=== PATIENT | male | born 1960 | race Caucasian/White ===

== ENCOUNTER 2016-06-04 18:40 | Emergency (ER) | payer BC, MEDICAID ==
[2016-06-04 18:56] VITALS: BP 124/72
--- NOTE | 2016-06-04 19:45 | EDM.PDOC ---
ED HPI GENERAL MEDICAL PROBLEM - General Chief Complaint: General Stated Complaint: CYST ON HIS TAIL BONE?? Time Seen by Provider: 06/04/16 19:20 Source of Information: Reports: Patient History Limitations: Reports: Intoxication - History of Present Illness INITIAL COMMENTS - FREE TEXT/NARRATIVE: 56-year-old male presents to the emergency room with complaints of a three-day history of boil or cyst over the area of his tailbone. He denies any drainage or discharge from the rectum. It is become painful to sit on a hard chair. He has been supplementing the pain with alcohol. Reports he drank a 12 pack of beer today. He is taking 3 hydrocodone today. He takes hydrocodone for pain secondary to history of prostate and bone cancer. He follows with Dr. De Luna. He denies any fever or chills, nausea vomiting, abdominal pain or diarrhea, constipation. 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) (hydrocodone, 12 pack of beer) Rectal Pain Score (Numeric/FACES): 5 - Related Data Allergies Allergy/AdvReac Type Severity Reaction Status Date / Time No Known Allergies Allergy Verified 04/13/16 13:33 Home Meds: Home Meds Albuterol [Ventolin HFA] 1 puff INH Q4H PRN 12/04/15 [History] Bicalutamide [Casodex] 50 mg PO DAILY 03/16/16 [History] Cholecalciferol (Vitamin D3) [Vitamin D3] 2,000 unit PO DAILY 03/16/16 [History] Denosumab [Xgeva] 120 mg SUBCUT ASDIRECTED 03/16/16 [History] Escitalopram [Lexapro] 10 mg PO DAILY 03/16/16 [History] Hydrocodone/Acetaminophen [Hydrocodon-Acetaminophen 5-325] 1 - 2 tab PO Q6H PRN 03/16/16 [History] Ondansetron [Ondansetron ODT] 8 mg SL Q8H PRN 03/16/16 [History] Prochlorperazine Maleate [Compazine] 10 mg PO Q6H PRN 03/16/16 [History] Gabapentin [Neurontin] 300 mg PO BEDTIME 04/14/16 [History] predniSONE [Prednisone] 5 mg PO BID 05/25/16 [History] Past Medical History HEENT History: Reports: Impaired vision Cardiovascular History: Reports: Blood clots/VTE/DVT Respiratory History: Reports: Other (see below) Other Respiratory History: pleurisy Gastrointestinal History: Reports: GERD Genitourinary History: Reports: Prostate disorder Musculoskeletal History: Reports: Arthritis Neurological History: Reports: None Psychiatric History: Reports: Depression Endocrine/Metabolic History: Reports: None Hematologic History: Reports: Blood transfusion(s) Immunologic History: Reports: Immunosuppression Oncologic (Cancer) History: Reports: Bone, Prostate Dermatologic History: Reports: None - Infectious Disease History Infectious Disease History: Reports: None - Past Surgical History Head Surgeries/Procedures: Reports: None HEENT Surgical History: Reports: None Cardiovascular Surgical History: Reports: None Respiratory Surgical History: Reports: None GI Surgical History: Reports: None Male Surgical History: Reports: None Endocrine Surgical History: Reports: None Musculoskeletal Surgical History: Reports: Knee replacement Oncologic Surgical History: Reports: Bone marrow aspiration Social & Family History - Tobacco Use Smoking Status *Q: Current Every Day Smoker Years of Tobacco use: 30 Packs/Tins Daily: 1.5 - Caffeine Use Caffeine Use: Reports: Coffee, Soda - Alcohol Use Days Per Week of Alcohol Use: 7 Number of Drinks Per Day: 8 Total Drinks Per Week: 56 Date of Last Drink: 06/04/16 Time of Last Drink: 17:00 - Recreational Drug Use Recreational Drug Use: No ED ROS GENERAL - Review of Systems Review Of Systems: See Below Constitutional: Reports: no symptoms HEENT: Reports: No symptoms Respiratory: Reports: No Symptoms Cardiovascular: Reports: No symptoms Endocrine: Reports: no symptoms GI/Abdominal: Denies: Black stool, Bloody stool, Constipation, Diarrhea, Nausea , Vomiting : Reports: no symptoms Musculoskeletal: Reports: no symptoms Skin: Reports: no symptoms Neurological: Reports: No Symptoms Psychiatric: Reports: Other (intoxicated) Hematologic/Lymphatic: Reports: no symptoms Immunologic: Reports: no symptoms ED EXAM, GENERAL - Physical Exam Exam: See Below Exam Limited By: Intoxication General Appearance: alert, WD/WN, no apparent distress Head: atraumatic, normocephalic Neck: normal inspection Respiratory/Chest: no respiratory distress, lungs clear Cardiovascular: regular rate, rhythm, no murmur GI/Abdominal: soft, non tender Rectal (Males) Exam: Tenderness (superior to the rectum, mild swelling and tenderness. No erythema, no evidence of infection). No: Black stool, Bloody Stool Psychiatric: depressed mood, other (intoxicated) Skin Exam: Warm, Dry, Intact, Normal color, No rash. No: Erythema Course - Vital Signs Last Recorded V/S: Last Vital Signs Temp 97.7 F 06/04/16 18:51 Pulse 86 06/04/16 18:51 Resp 18 06/04/16 18:51 BP 124/72 06/04/16 18:51 Pulse Ox 98 06/04/16 18:51 - Orders/Labs/Meds Orders: Active Orders 24 hr Category Date Time Status Blood Alcohol [ETHANOL BLOOD MEDICAL] [CHEM] Stat Lab 06/04/16 19:23 Ordered Labs: Laboratory Tests 06/04/16 Range/Units 19:45 WBC 22.6 H (5.0-10.0) 10^3/uL RBC 3.77 L (4.50-6.00) 10^6/uL Hgb 12.1 L (13.0-17.0) g/dL Hct 35.3 L (40.0-52.0) % MCV 93.7 H (82.0-92.0) fL MCH 32.3 H (27.0-31.0) pg MCHC 34.4 (32.0-36.0) g/dL RDW 15.7 H (11.5-14.5) % Plt Count 315 H (150-300) 10^3/uL MPV 6.2 L (7.4-10.4) fL Neut % (Auto) 87.9 H (50.0-70.0) % Lymph % (Auto) 7.3 L (20.0-40.0) % [place] % (Auto) 3.8 (2.0-8.0) % Eos % (Auto) 0.8 L (1.0-3.0) % Baso % (Auto) 0.2 (0.0-1.0) % Neut # 19.9 H (2.5-7.0) 10^3/uL Lymph # 1.6 (1.0-4.0) 10^3/uL [place] # 0.9 H (0.1-0.8) 10^3/uL Eos # 0.2 (0.1-0.3) 10^3/uL Baso # 0.0 (0.0-0.1) 10^3/uL Departure - Departure Time of Disposition: 20:05 Disposition: Against Medical Advice 07 Condition: good Clinical Impression: Pilonidal cyst Referrals: Ashu Hicks MD [Primary Care Provider] - Forms: ED Department Discharge Additional Instructions: 1. Sitz bath 2. Avoid direct contact by sitting. Patient should lay on side for pain relief. 3. Do not drink alcohol and take pain medication together. 4. Followup with Dr. De Luna on Monday for possible I&D. 5. Do not eat or drink anything after midnight Monday night. - My Orders Last 24 Hours: My Active Orders 06/04/16 19:23 Blood Alcohol [ETHANOL BLOOD MEDICAL] [CHEM] Stat - Assessment/Plan Last 24 Hours: My Active Orders 06/04/16 19:23 Blood Alcohol [ETHANOL BLOOD MEDICAL] [CHEM] Stat Assessment:: Pilonidal cyst Plan: 1. Patient left on his own discretion before finishing with his ER visit and lab work. I did not get to see the patient prior to his discharge for further instructions. Patient was intoxicated with a blood alcohol level of greater than 1-1/2 times the legal limit. He did have a friend that pick him up when he left. His instructions for his discharge did include following up with Dr. De Luna on Monday, n.p.o. after midnight Monday night. 2. Patient left AMA.
== END 2016-06-04 20:00 | disposition left against medical advice (07) ==
LOC: KA.ED 18:40
DX: L05.91 Pilonidal cyst without abscess (principal); F17.210 Nicotine dependence, cigarettes, uncomplicated
CPT/HCPCS: 36415; 85025; 99283; G0480

== ENCOUNTER 2016-10-31 09:01 | Day surgery (SDC) | payer MEDICAID ==
[~2016-10-31 09:01] MED LIST: Lactated Ringers 1,000 ML IV SCH; Sodium Chloride 0.9% 5 ML Syringe FLUSH PRN
[2016-10-31] MEDS ORDERED: Midazolam 1 MG/ML 2 ML SDV ONE (09:34)
[2016-10-31] MEDS ORDERED: Propofol 200 MG/20 ML SDV ONE ×2 (09:34→10:04)
[2016-10-31] MEDS ORDERED: Midazolam 1 MG/ML 2 ML SDV IV ONE (10:38)
[2016-10-31] MEDS ORDERED: Propofol 200 MG/20 ML SDV IV ONE (10:38)
--- NOTE | 2016-10-31 11:40 | PCM.OPNOTE ---
- General Post-Op/Procedure Note Date of Surgery/Procedure: 10/31/16 Operative Procedure(s): Colonoscopy with polypectomies x2 at 15 cm and 65 cm. Pre Op Diagnosis: Screening colonoscopy, right upper quadrant pain. Anesthesia Technique: MAC Primary Surgeon: Atif De Luna Complications: None Condition: Good Free Text/Narrative:: INFORMED CONSENT: Patient is here today for elective colonoscopy. All aspects of this procedure have been discussed with the patient. All possible complications also, including possibility of perforation, infection, pain, bleeding and unknown complications. In the event of perforation patient may need to have abdominal exploration, colon resection, colostomy and even was discussed. Anesthetic complications were handled by anesthesia department. The patient understands fully well. Patient did not have any further questions for me at the end of my interview. The patient wishes for me to proceed. PREOPERATIVE DIAGNOSIS/INDICATIONS: [right upper quadrant pain screening colonoscopy.] POSTOPERATIVE DIAGNOSIS: [2 polyps identified at 15 cm and 65 cm from anal margin.] INSTRUMENT USED: Olympus videocolonoscope. ASA CLASSIFICATION: [MAC] ANESTHESIA: Continuous EKG, oximetry and intermittent blood pressure and respiratory monitoring were performed throughout the procedure. IV Versed and Fentanyl were administered. PROCEDURE PERFORMED: Colonoscopy POSITIONS OF PATIENT: Left lateral. RECTUM: a small sessile polyp was identified and removed using the hot biopsy forceps, also small external hemorrhoids are identified.. SIGMOID COLON: a 65 cm and a small polyp was identified and removed using the hot biopsy forceps.. DESCENDING COLON: Normal. SPLENIC FLEXURE: Normal. TRANSVERSE COLON: Normal. HEPATIC FLEXURE: Normal. ASCENDING COLON: Normal. CECUM: Normal. ILEOCECAL VALVE: Normal. BIOPSY: None. TOLERANCE: Excellent. COMPLICATIONS: None. Normal colonoscopy except for 2 polyps one at 15 cm and one at 65 cm from the anal margin. Small external hemorrhoids identified.
[2016-10-31 14:33] VITALS: BP 136/78
== END 2016-10-31 13:45 | disposition home or self-care (01) ==
LOC: KA.SDS 09:01
PROVIDERS: ATTEND Family Medicine
DX: Z12.11 Encounter for screening for malignant neoplasm of colon (principal); D12.4 Benign neoplasm of descending colon; D12.5 Benign neoplasm of sigmoid colon; K64.4 Residual hemorrhoidal skin tags; J42 Unspecified chronic bronchitis; Z79.899 Other long term (current) drug therapy
CPT/HCPCS: 45384; J2250; J2704; J7120

== ENCOUNTER 2016-12-22 18:18 | Emergency (ER) | payer MEDICAID ==
[2016-12-22 18:32] VITALS: BP 150/78
[2016-12-22] MEDS ORDERED: Ketorolac 30 MG/ML SDV IVPUSH ONE (19:13)
--- NOTE | 2016-12-22 19:23 | EDM.PDOC ---
ED HPI GENERAL MEDICAL PROBLEM - General Chief Complaint: General Stated Complaint: PAIN ALL OVER Time Seen by Provider: 12/22/16 18:59 Source of Information: Reports: Patient History Limitations: Reports: No Limitations - History of Present Illness INITIAL COMMENTS - FREE TEXT/NARRATIVE: Patient presents with significant pain in right cheek, most of torso/abdomen/ back and down to both feet that has been increasing the past two days. He takes Hydrocodone 5/325 for chronic pain but this is worse than before. He has cancer of prostate and spine diagnosed a year ago. He had chemo and takes some chemo pills at home now. He takes prednisone also. He smokes and has for the past 20-30 years, but denies known lung or heart problems. 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) Generalized Pain Score (Numeric/FACES): 8 - Related Data Allergies Allergy/AdvReac Type Severity Reaction Status Date / Time No Known Allergies Allergy Verified 12/22/16 18:33 Home Meds: Home Meds Bicalutamide [Casodex] 50 mg PO DAILY 03/16/16 [History] Cholecalciferol (Vitamin D3) [Vitamin D3] 2,000 unit PO DAILY 03/16/16 [History] Escitalopram [Lexapro] 10 mg PO DAILY 03/16/16 [History] Hydrocodone/Acetaminophen [Hydrocodon-Acetaminophen 5-325] 1 - 2 tab PO Q6H PRN 03/16/16 [History] Ondansetron [Ondansetron ODT] 8 mg SL Q8H PRN 03/16/16 [History] Prochlorperazine Maleate [Compazine] 10 mg PO Q6H PRN 03/16/16 [History] predniSONE [Prednisone] 5 mg PO DAILY 05/25/16 [History] Temazepam 30 mg PO BEDTIME PRN 10/05/16 [History] Albuterol [Ventolin HFA] 2 puff INH Q2H PRN 12/22/16 [History] Enzalutamide [Xtandi] 40 mg PO DAILY 12/22/16 [History] Fluticasone/Vilanterol [Breo Ellipta 200-25 Mcg INH] 1 inh INH DAILY 12/22/16 [ History] Past Medical History HEENT History: Reports: Impaired Vision Cardiovascular History: Reports: Blood Clots/VTE/DVT Respiratory History: Reports: Other (See Below) Other Respiratory History: Every day smoker Gastrointestinal History: Reports: GERD Genitourinary History: Reports: Prostate Disorder Musculoskeletal History: Reports: Arthritis Neurological History: Reports: None Psychiatric History: Reports: Depression Endocrine/Metabolic History: Reports: None Hematologic History: Reports: Blood Transfusion(s) Immunologic History: Reports: Immunosuppression Oncologic (Cancer) History: Reports: Bone, Prostate Dermatologic History: Reports: None - Infectious Disease History Infectious Disease History: Reports: None - Past Surgical History Head Surgeries/Procedures: Reports: None GI Surgical History: Reports: None Endocrine Surgical History: Reports: None Musculoskeletal Surgical History: Reports: Knee Replacement Oncologic Surgical History: Reports: Bone Marrow Aspiration Social & Family History - Family History Family Medical History: Noncontributory - Tobacco Use Smoking Status *Q: Current Every Day Smoker Years of Tobacco use: 30 Packs/Tins Daily: 1 Second Hand Smoke Exposure: No - Caffeine Use Caffeine Use: Reports: Coffee, Soda - Alcohol Use Days Per Week of Alcohol Use: 2 Number of Drinks Per Day: 8 Total Drinks Per Week: 16 - Recreational Drug Use Recreational Drug Use: No ED ROS GENERAL - Review of Systems Review Of Systems: See Below Constitutional: Reports: Decreased Appetite (just the past 1-2 days). Denies: Fever, Chills HEENT: Denies: Eye Discharge, Vision Change Respiratory: Denies: Shortness of Breath, Cough Cardiovascular: Denies: Chest Pain, Syncope GI/Abdominal: Reports: Abdominal Pain. Denies: Black Stool, Bloody Stool, Vomiting : Denies: Dysuria, Hematuria, Pain Musculoskeletal: Reports: Back Pain. Denies: Neck Pain, Shoulder Pain, Arm Pain Skin: Denies: Cyanosis, Jaundice, Mottled, Pallor, Diaphoresis Neurological: Denies: Confusion, Dizziness, Headache, Seizure, Syncope Psychiatric: Denies: Agitation, Anxiety, Confusion ED EXAM, GENERAL - Physical Exam Exam: See Below Exam Limited By: No Limitations General Appearance: Alert, WD/WN, No Apparent Distress Eye Exam: Bilateral Eye: EOMI, Normal Inspection, PERRL Ears: Normal External Exam, Hearing Grossly Normal Nose: Normal Inspection, No Blood Throat/Mouth: Normal Inspection, Normal Lips, Normal Voice, No Airway Compromise Head: Atraumatic, Normocephalic Neck: Normal Inspection, Supple, Non-Tender, Full Range of Motion Respiratory/Chest: No Respiratory Distress, Lungs Clear, Normal Breath Sounds, No Accessory Muscle Use Cardiovascular: Normal Peripheral Pulses, Regular Rate, Rhythm, No Edema, No Gallop, No Murmur Peripheral Pulses: 2+: Carotid (L), Carotid (R), Radial (L), Radial (R), Posterior Tibial (L), Posterior Tibial (R) GI/Abdominal: Normal Bowel Sounds, Soft, Other (Tender to palpation of mid- epigastrium and RUQ. Right posterior flank is tender to palpation and there is a very subtle soft-tissue fullness over the right inferolateral (flank) ribcage , although this doesn't consistently coincide with the tender region.) Back Exam: CVA Tenderness (R) (see above), Paraspinal Tenderness (right lumbar) . No: Vertebral Tenderness Extremities: Normal Inspection, Normal Range of Motion, Non-Tender, No Pedal Edema Neurological: Alert, Oriented, Normal Cognition, No Motor/Sensory Deficits Psychiatric: Normal Affect, Normal Mood Skin Exam: Warm, Dry, Intact, Normal Color (uribe versus mild jaundice; patient and his say it is uribe), No Rash Course - Vital Signs Last Recorded V/S: Last Vital Signs Temp 98.2 F 12/22/16 18:29 Pulse 78 12/22/16 18:29 Resp 18 12/22/16 18:29 BP 150/78 H 12/22/16 18:29 Pulse Ox 100 12/22/16 18:29 - Orders/Labs/Meds Orders: Active Orders 24 hr Category Date Time Status CMP [COMPREHENSIVE METABOLIC PN,CMP] [CHEM] Stat Lab 12/22/16 18:50 Received LIPASE [CHEM] Stat Lab 12/22/16 19:10 Ordered Ketorolac [Toradol] Med 12/22/16 19:13 Once 30 mg IVPUSH ONETIME ONE Labs: Laboratory Tests 12/22/16 Range/Units 18:50 WBC 6.6 (5.0-10.0) 10^3/uL RBC 3.20 L (4.50-6.00) 10^6/uL Hgb 9.1 L (13.0-17.0) g/dL Hct 27.8 L (40.0-52.0) % MCV 86.7 (82.0-92.0) fL MCH 28.4 (27.0-31.0) pg MCHC 32.7 (32.0-36.0) g/dL RDW 15.0 H (11.5-14.5) % Plt Count 257 (150-300) 10^3/uL MPV 5.5 L (7.4-10.4) fL Neut % (Auto) 71.1 H (50.0-70.0) % Lymph % (Auto) 17.7 L (20.0-40.0) % [place] % (Auto) 8.6 H (2.0-8.0) % Eos % (Auto) 1.8 (1.0-3.0) % Baso % (Auto) 0.8 (0.0-1.0) % Neut # (Auto) 4.6 (2.5-7.0) 10^3/uL Lymph # (Auto) 1.2 (1.0-4.0) 10^3/uL [place] # (Auto) 0.6 (0.1-0.8) 10^3/uL Eos # (Auto) 0.1 (0.1-0.3) 10^3/uL Baso # (Auto) 0.1 (0.0-0.1) 10^3/uL - Re-Assessments/Exams Free Text/Narrative Re-Assessment/Exam: 12/22/16 19:30 He has taken the hydrocodone 2 tabs q 4-5 hours today without adequate control of the pain. We gave a 30 mg dose of Toradol IV now; patient denies any kidney disease. Previous CMP is normal except for elevated Alk Phos. 12/22/16 20:00 Labs are okay. Pt took two of his hydrocodone while in ER, with our approval, and pain is starting to go down now at about 7 (down from 8). I recommended we monitor for 20-30 minutes to assure adequate response but pt says he needs to get home for some company they have coming over and is okay with the pain not completely down prior to discharge. We discussed that he should call his PCP or the oncologist tomorrow if the pain is back so he won't go into the weekend without some plan for his increasing chronic pain. He understands and agrees. Discharged in stable condition. Departure - Departure Time of Disposition: 20:03 Disposition: Home, Self-Care 01 Condition: Good Clinical Impression: Chronic pain due to neoplasm - Discharge Information Referrals: Ashu Hicks MD [Primary Care Provider] - Additional Instructions: 1. Take your usual pain medications as directed. 2. If pain persists or returns tomorrow, call your PCP or the oncologist to discuss management of the increasing pain level. - My Orders Last 24 Hours: My Active Orders 12/22/16 18:50 CMP [COMPREHENSIVE METABOLIC PN,CMP] [CHEM] Stat 12/22/16 19:10 LIPASE [CHEM] Stat 12/22/16 19:13 Ketorolac [Toradol] 30 mg IVPUSH ONETIME ONE - Assessment/Plan Last 24 Hours: My Active Orders 12/22/16 18:50 CMP [COMPREHENSIVE METABOLIC PN,CMP] [CHEM] Stat 12/22/16 19:10 LIPASE [CHEM] Stat 12/22/16 19:13 Ketorolac [Toradol] 30 mg IVPUSH ONETIME ONE
[2016-12-22 19:37] LABS: CHLORIDE,CL 98 mmol/L (98-115)
[2016-12-22 19:50] LABS: SODIUM,NA 135 mmol/L (136-145)
== END 2016-12-22 20:10 | disposition home or self-care (01) ==
LOC: KA.ED 18:18
DX: G89.3 Neoplasm related pain (acute) (chronic) (principal); C61 Malignant neoplasm of prostate; C41.2 Malignant neoplasm of vertebral column; F17.210 Nicotine dependence, cigarettes, uncomplicated; Z79.899 Other long term (current) drug therapy
CPT/HCPCS: 80053; 83690; 85025; 96374; 99283; J1885

== ENCOUNTER 2016-12-23 14:48 | Observation (INO) | payer MEDICAID ==
[2016-12-23] MEDS ORDERED: Ondansetron 4 MG/2 ML SDV IV PRN ×2 (14:53→15:03)
[2016-12-23] MEDS ORDERED: Sodium Chloride 0.9% 1,000 ML IV SCH (15:00)
[2016-12-23] MEDS ORDERED: Gabapentin 300 MG Cap PO PRN (15:50)
[2016-12-23] MEDS ORDERED: Codeine/guaiFENesin 100mg-10 MG/5 ML Syrup 10 ML Cup PO PRN (15:50)
[2016-12-23] MEDS ORDERED: ALBUTEROL INH PRN (15:50)
[2016-12-23] MEDS ORDERED: Albuterol/Ipratropium 3.0-0.5 MG/3 ML Neb Soln NEB PRN (15:50)
[2016-12-23] MEDS ORDERED: Temazepam 15 MG Cap PO PRN (15:50)
[2016-12-23] MEDS: Ketorolac 30 MG/ML SDV IVPUSH PRN (16:03)
[2016-12-23] MEDS ORDERED: Lactulose Soln 10 GM/15 ML 30 ML UD Cup ONE (16:28)
[2016-12-23] MEDS: Lactulose Soln 10 GM/15 ML 30 ML UD Cup PO SCH ×2 (16:37→20:57)
[2016-12-23] MEDS: Acetaminophen/HYDROcodone 325-5 MG Tab PO PRN ×2 (16:38→20:59)
[2016-12-23] MEDS: predniSONE 5 MG Tab PO SCH (20:57)
[2016-12-24] MEDS: Acetaminophen/HYDROcodone 325-5 MG Tab PO PRN ×3 (01:05→11:14)
[2016-12-24] MEDS: Ketorolac 30 MG/ML SDV IVPUSH PRN ×2 (01:47→08:01)
[2016-12-24 06:06] VITALS: BP 145/89
[2016-12-24 07:52] LABS: CHLORIDE,CL 102 mmol/L (98-115); SODIUM,NA 139 mmol/L (136-145)
[2016-12-24] MEDS: Lactulose Soln 10 GM/15 ML 30 ML UD Cup PO SCH (07:59)
[2016-12-24] MEDS: predniSONE 5 MG Tab PO SCH (08:02)
[2016-12-24] MEDS ORDERED: BICALUTAMIDE 50 MG PO SCH (09:00)
[2016-12-24] MEDS ORDERED: Escitalopram 10 MG Tab PO SCH (09:00)
[2016-12-24] MEDS ORDERED: VILANTEROL INH SCH (09:00)
[2016-12-24] MEDS ORDERED: ENZALUTAMIDE 40 MG PO SCH (09:00)
[2016-12-24] MEDS ORDERED: FLUTICASONE INH SCH (09:00)
--- NOTE | 2016-12-30 08:10 | DISCH ---
DISCHARGE DIAGNOSIS: 1. Generalized abdominal pain, possible rib pain due to his metastatic disease. 2. 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 BRIEF HISTORY: This 56-year-old male patient was admitted to Observation for generalized abdominal discomfort with a questionable ileus. The x-ray of the abdomen was obtained and no obstruction was noted. There was some stool that was present. His UA was negative. He was scheduled for a CT scan, and the CT scan was normal. HOSPITAL SUMMARY: The patient was admitted for the observation. He was given lactulose during hospitalization along with Toradol for pain control. Over the course of the hospitalization, his abdominal pain did improve some and he elected to be discharged. There were no complications. DISCHARGE MEDICATIONS: Included hydrocodone/APAP, sildenafil, gabapentin, albuterol, DuoNeb, enzalutamide, Casodex, Lexapro, prednisone, temazepam, Colace as needed, Zantac, and Toradol. LABS AND DIAGNOSTICS: Labs and diagnostics were obtained during hospitalization. CT scan was negative. He did have elevated liver tests, which were declining at the time of his discharge. PHYSICAL EXAMINATION: HEENT: Negative. CARDIOVASCULAR: Heart rate and rhythm are regular. S1, S2. RESPIRATORY: Lung sounds are clear to auscultation. ABDOMEN: Soft. Bowel sounds are present. There is some mild generalized tenderness. DISPOSITION/DISCHARGE INSTRUCTION: The patient was sent home on home medications as previously stated. He will be following up on the clinic on Monday with Israel Shankar, his primary care provider. Further evaluation and treatment will be determined for this patient based on his symptoms. Remaining diagnosis includes prostate cancer with bony mets. /[id number]/MODL
== END 2016-12-24 12:26 | disposition home or self-care (01) ==
LOC: UNDOADMOB 14:48 → KA.MS 14:48
PROVIDERS: ADMIT Nurse Practitioner Family; ATTEND Family Medicine
DX: R10.84 Generalized abdominal pain (principal); Z79.899 Other long term (current) drug therapy; Z98.890 Other specified postprocedural states; Z96.652 Presence of left artificial knee joint; F17.210 Nicotine dependence, cigarettes, uncomplicated
CPT/HCPCS: 36415; 80053; 85025; 96374; 96376; A9270; G0378; J1885; J7030

== ENCOUNTER 2016-12-25 15:35 | Emergency (ER) | payer MEDICAID ==
[2016-12-25 15:57] VITALS: BP 176/78
[2016-12-25] MEDS ORDERED: HYDROmorphone 1 MG/ML Syringe IVPUSH ONE (16:19)
--- NOTE | 2016-12-25 16:50 | EDM.PDOC ---
ED HPI GENERAL MEDICAL PROBLEM - General Chief Complaint: Abdominal Pain Stated Complaint: ABDOMINAL PAIN Time Seen by Provider: 12/25/16 16:02 Source of Information: Reports: Patient History Limitations: Reports: No Limitations - History of Present Illness INITIAL COMMENTS - FREE TEXT/NARRATIVE: Patient presents with continuing diffuse abdominal pain of 8-9/10. He is taking Ketorolac as started 3 days ago following an ER visit and Hydrocodone 5/ 325 two tabs q46h. This isn't helping adequately. Since the ER visit last , he saw his PCP on Monday and was admitted to the hospital for pain management and to ruleout bowel obstruction/ileus. He passed stool Monday and pain was improved so he was discharged Monday (yesterday) afternoon. He denies N/V, dysuria, chest pain, fever. He has known stage 4 prostate cancer with extensive metastasis to bone and lung. He has tried several chemotherapy agents, some of which he tolerated and some he didn't. I reviewed the oncology note covering the range of treatments he has been on since the cancer was discovered in November of 2015. Pt seems to be in some degree of denial and at some points seems to think his cancer is now clear. He continues to smoke although has been counseled by his oncologist in this. I also reviewed the CT from two days ago showing no sign of gallbladder, pancreas, appendix, intestinal or other intra-abdominal problems. He previously has had US and HIDA scans also ruling out gallbladder pathology. Abdomen Pain Score (Numeric/FACES): 9 - Related Data Allergies Allergy/AdvReac Type Severity Reaction Status Date / Time No Known Allergies Allergy Verified 12/22/16 18:33 Home Meds: Home Meds Bicalutamide [Casodex] 50 mg PO DAILY 03/16/16 [History] Escitalopram [Lexapro] 10 mg PO DAILY 03/16/16 [History] Hydrocodone/Acetaminophen [Hydrocodon-Acetaminophen 5-325] 1 - 2 tab PO Q4H PRN 03/16/16 [History] predniSONE [Prednisone] 5 mg PO BID 05/25/16 [History] Temazepam 30 mg PO BEDTIME PRN 10/05/16 [History] Albuterol [Ventolin HFA] 2 puff INH Q2H PRN 12/22/16 [History] Enzalutamide [Xtandi] 160 mg PO DAILY 12/22/16 [History] Fluticasone/Vilanterol [Breo Ellipta 200-25 Mcg INH] 1 blister INH DAILY [History] Albuterol/Ipratropium [DuoNeb 3.0-0.5 MG/3 ML] 3 ml NEB Q6HRRT PRN 12/23/16 [ History] Gabapentin [Neurontin] 300 mg PO BEDTIME PRN 12/23/16 [History] Sildenafil [Revatio] 20 mg PO DAILY PRN 12/23/16 [History] guaiFENesin/Codeine Phosphate [Cheratussin AC Syrup] 5 - 10 ml PO Q4HR PRN 12/23 [History] Docusate Sodium [Colace] 100 mg PO DAILY #14 capsule 12/24/16 [Rx] Ketorolac [Toradol] 10 mg PO Q6H PRN #7 tablet 12/24/16 [Rx] Ranitidine HCl [Zantac] 150 mg PO BIDAC #14 tablet 12/24/16 [Rx] Docusate Sodium [Colace] 100 mg PO BID 12/25/16 [History] Past Medical History HEENT History: Reports: Impaired Vision Cardiovascular History: Reports: Blood Clots/VTE/DVT Respiratory History: Reports: COPD Other Respiratory History: Every day smoker Gastrointestinal History: Reports: GERD Genitourinary History: Reports: Prostate Disorder Musculoskeletal History: Reports: Arthritis Neurological History: Reports: None Psychiatric History: Reports: Depression Endocrine/Metabolic History: Reports: None Hematologic History: Reports: Blood Transfusion(s) Immunologic History: Reports: Immunosuppression Oncologic (Cancer) History: Reports: Bone, Prostate Dermatologic History: Reports: None - Infectious Disease History Infectious Disease History: Reports: None - Past Surgical History Head Surgeries/Procedures: Reports: None HEENT Surgical History: Reports: None Cardiovascular Surgical History: Reports: None Respiratory Surgical History: Reports: None GI Surgical History: Reports: None Male Surgical History: Reports: None Musculoskeletal Surgical History: Reports: Knee Replacement Oncologic Surgical History: Reports: Bone Marrow Aspiration Social & Family History - Family History Family Medical History: Noncontributory - Tobacco Use Smoking Status *Q: Current Every Day Smoker Years of Tobacco use: 30 Packs/Tins Daily: 1 Used Tobacco, but Quit: No Second Hand Smoke Exposure: No - Caffeine Use Caffeine Use: Reports: Coffee, Soda - Alcohol Use Days Per Week of Alcohol Use: 2 Number of Drinks Per Day: 8 Total Drinks Per Week: 16 - Recreational Drug Use Recreational Drug Use: No ED ROS GENERAL - Review of Systems Review Of Systems: See Below Constitutional: Denies: Fever, Chills Respiratory: Denies: Shortness of Breath Cardiovascular: Denies: Chest Pain GI/Abdominal: Reports: Abdominal Pain. Denies: Diarrhea, Vomiting : Denies: Dysuria Musculoskeletal: Reports: Back Pain. Denies: Neck Pain, Shoulder Pain, Arm Pain Skin: Reports: Jaundice. Denies: Cyanosis, Mottled, Pallor, Diaphoresis Neurological: Denies: Confusion, Dizziness, Headache, Seizure, Syncope Psychiatric: Denies: Agitation, Anxiety, Confusion ED EXAM, GI/ABD - Physical Exam Exam: See Below Exam Limited By: No Limitations General Appearance: Alert, WD/WN, No Apparent Distress Eyes: Bilateral: Normal Appearance, EOMI Ears: Normal External Exam, Hearing Grossly Normal Nose: Normal Inspection, No Blood Throat/Mouth: Normal Lips, Normal Voice, No Airway Compromise Head: Atraumatic, Normocephalic Neck: Normal Inspection, Supple, Non-Tender, Full Range of Motion Respiratory/Chest: No Respiratory Distress, Lungs Clear, Normal Breath Sounds Cardiovascular: Regular Rate, Rhythm, No Murmur GI/Abdominal Exam: Normal Bowel Sounds, Soft, No Organomegaly, Tender ( throughout but more on left side) Back Exam: CVA Tenderness (L), CVA Tenderness (R) Extremities: Normal Inspection, Normal Range of Motion Neurological: Alert, Oriented, Normal Cognition, No Motor/Sensory Deficits Psychiatric: Normal Affect, Normal Mood Skin Exam: Warm, Dry, Intact, No Rash Course - Vital Signs Last Recorded V/S: Last Vital Signs Temp 97.2 F 12/25/16 15:52 Pulse 78 12/25/16 15:52 Resp 20 12/25/16 15:52 BP 176/78 H 12/25/16 15:52 Pulse Ox 100 12/25/16 15:52 - Orders/Labs/Meds Meds: Medications Discontinued Medications Generic Name Dose Route Start Last Admin Trade Name Freq PRN Reason Stop Dose Admin Hydromorphone HCl 1 mg 12/25/16 16:19 12/25/16 16:33 Dilaudid IVPUSH 12/25/16 16:20 1 mg ONETIME ONE Administration - Re-Assessments/Exams Free Text/Narrative Re-Assessment/Exam: 12/25/16 17:06 Pain is now down to 3/10 after the Dilaudid. We discussed findings and the fact that we don't really know what is causing his pain but may be his metastasis. He doesn't really like oxycodone as it causes weird dreams for him but he would like to use it when the pain is worse like today and then switch back to Hydrocodone when able. I advised follow up with his PCP in 1-2 days unless the pain has resolved as he will likely need longer term management of the pain than I am sending with him. Patient discharged in stable condition. Departure - Departure Time of Disposition: 17:12 Disposition: Home, Self-Care 01 Condition: Fair Clinical Impression: Adenocarcinoma of prostate, stage 4, Acute abdominal pain - Discharge Information Referrals: Israel Shankar PA-C [Primary Care Provider] - Additional Instructions: 1. Drink 8 cups of water daily. 2. Take the Oxycodone vs your Hydrocodone as directed. 3. Since the Ketorolac doesn't seem to be helping you can hold that one. You probably only have 1-2 days left of that and if you need those you can use them as needed. 4. Follow up with your PCP in 1-2 days unless pain has resolved. 5. Recheck with your oncologist as needed.
[2016-12-25] MEDS ORDERED: Acetaminophen/oxyCODONE 325-5 MG Tab PO PRN (17:03)
== END 2016-12-25 17:30 | disposition home or self-care (01) ==
LOC: KA.ED 15:35
DX: R10.9 Unspecified abdominal pain (principal); C61 Malignant neoplasm of prostate; C79.51 Secondary malignant neoplasm of bone; C78.00 Secondary malignant neoplasm of unspecified lung; J44.9 Chronic obstructive pulmonary disease, unspecified; K21.9 Gastro-esophageal reflux disease without esophagitis; M19.90 Unspecified osteoarthritis, unspecified site; Z96.659 Presence of unspecified artificial knee joint; F17.210 Nicotine dependence, cigarettes, uncomplicated; Z86.718 Personal history of other venous thrombosis and embolism; Z79.899 Other long term (current) drug therapy; Z92.21 Personal history of antineoplastic chemotherapy
CPT/HCPCS: 96374; 99283; A9270; J1170

== ENCOUNTER 2017-02-02 17:44 | Inpatient (IN) | payer MEDICAID, OTHER, SELFPAY ==
[2017-02-02] MEDS ORDERED: Sodium Chloride 0.9% 1,000 ML IV ONE (18:22)
[2017-02-02] MEDS ORDERED: Sodium Chloride 0.9% 5 ML Syringe FLUSH PRN ×2 (18:22→19:53)
[2017-02-02] MEDS ORDERED: Acetaminophen 500 MG Tab PO ONE (18:24)
--- NOTE | 2017-02-02 18:36 | EDM.PDOC ---
ED HPI GENERAL MEDICAL PROBLEM - General Chief Complaint: General Stated Complaint: FEVER...ACHING ALL OVER Time Seen by Provider: 02/02/17 18:24 Source of Information: Reports: Patient History Limitations: Reports: No Limitations - History of Present Illness INITIAL COMMENTS - FREE TEXT/NARRATIVE: 56 YO WM with PMH of bone cancer who recieved chemotherapy 2 days ago, presents to ER with fever, malaise and body aches since 1pm today. Pt reports he's had some loose stools and a nonproductive cough. Pt reports today fever 101.0 Pt denies any chest pain, shortness of breath or nausea/vomiting. Pt reports some mild abdominal cramping but denies any localized abdominal pain. Onset: Today Onset Date: 02/02/17 Onset Time: 13:00 Location: Reports: Generalized Quality: Reports: Ache Severity: Mild Improves with: Reports: Rest Worsens with: Reports: Movement Associated Symptoms: Reports: Cough, Fever/Chills, Headaches, Loss of Appetite, Malaise, Weakness. Denies: Confusion, Chest Pain, cough w sputum, Diaphoresis, Nausea/Vomiting, Rash, Seizure, Shortness of Breath, Syncope Abdomen Pain Score (Numeric/FACES): 6 - Related Data Allergies Allergy/AdvReac Type Severity Reaction Status Date / Time No Known Allergies Allergy Verified 02/02/17 17:59 Home Meds: Home Meds Escitalopram [Lexapro] 20 mg PO DAILY 03/16/16 [History] Temazepam 30 mg PO BEDTIME PRN 10/05/16 [History] Albuterol [Ventolin HFA] 2 puff INH Q2H PRN 12/22/16 [History] Fluticasone/Vilanterol [Breo Ellipta 200-25 Mcg INH] 1 blister INH DAILY [History] Albuterol/Ipratropium [DuoNeb 3.0-0.5 MG/3 ML] 3 ml NEB Q6HRRT PRN 12/23/16 [ History] Gabapentin [Neurontin] 300 mg PO BEDTIME PRN 12/23/16 [History] Bisacodyl [Dulcolax] 5 - 10 mg PO BID 02/02/17 [History] Calcium Carbonate [Calcium] 500 mg PO BID 02/02/17 [History] Cholecalciferol (Vitamin D3) [Vitamin D3] 200 unit PO DAILY 02/02/17 [History] Dexamethasone 4 mg PO DAILY 02/02/17 [History] Hydrocodone/Acetaminophen [Hydrocodon-Acetaminophn 10-325] 1 tab PO Q4H PRN [History] Morphine [MS Contin] 30 mg PO BID 02/02/17 [History] Past Medical History HEENT History: Reports: Impaired Vision Cardiovascular History: Reports: Blood Clots/VTE/DVT Respiratory History: Reports: COPD Other Respiratory History: Every day smoker Gastrointestinal History: Reports: GERD Genitourinary History: Reports: Prostate Disorder Musculoskeletal History: Reports: Arthritis Neurological History: Reports: None Psychiatric History: Reports: Depression Endocrine/Metabolic History: Reports: None Hematologic History: Reports: Blood Transfusion(s) Immunologic History: Reports: Immunosuppression Oncologic (Cancer) History: Reports: Bone, Prostate Dermatologic History: Reports: None - Infectious Disease History Infectious Disease History: Reports: None - Past Surgical History Head Surgeries/Procedures: Reports: None HEENT Surgical History: Reports: None Cardiovascular Surgical History: Reports: None Respiratory Surgical History: Reports: None GI Surgical History: Reports: None Male Surgical History: Reports: None Neurological Surgical History: Reports: None Musculoskeletal Surgical History: Reports: Knee Replacement Oncologic Surgical History: Reports: Bone Marrow Aspiration Social & Family History - Family History Family Medical History: Noncontributory - Tobacco Use Smoking Status *Q: Current Every Day Smoker Years of Tobacco use: 30 Packs/Tins Daily: 1 Used Tobacco, but Quit: No Second Hand Smoke Exposure: No - Caffeine Use Caffeine Use: Reports: Coffee, Soda - Alcohol Use Days Per Week of Alcohol Use: 2 Number of Drinks Per Day: 8 Total Drinks Per Week: 16 - Recreational Drug Use Recreational Drug Use: No ED ROS GENERAL - Review of Systems Review Of Systems: See Below Constitutional: Reports: Fever, Chills, Malaise, Fatigue HEENT: Reports: No Symptoms Respiratory: Reports: Cough Cardiovascular: Reports: No Symptoms Endocrine: Reports: No Symptoms GI/Abdominal: Reports: Diarrhea : Reports: No Symptoms Musculoskeletal: Reports: No Symptoms Skin: Reports: No Symptoms Neurological: Reports: No Symptoms Psychiatric: Reports: No Symptoms Hematologic/Lymphatic: Reports: No Symptoms Immunologic: Reports: No Symptoms ED EXAM, GENERAL - Physical Exam Exam: See Below Exam Limited By: No Limitations General Appearance: Alert, WD/WN, No Apparent Distress Ears: Normal External Exam, Normal Canal, Hearing Grossly Normal, Normal TMs Nose: Normal Inspection, Normal Mucosa, No Blood Throat/Mouth: Normal Inspection, Normal Lips, Normal Teeth, Normal Gums, Normal Oropharynx, Normal Voice, No Airway Compromise Head: Atraumatic, Normocephalic Neck: Normal Inspection, Supple, Non-Tender, Full Range of Motion Respiratory/Chest: No Respiratory Distress, Lungs Clear, Normal Breath Sounds, No Accessory Muscle Use, Chest Non-Tender Cardiovascular: Normal Peripheral Pulses, Regular Rate, Rhythm, No Edema, No Gallop, No JVD, No Murmur, No Rub GI/Abdominal: Normal Bowel Sounds, Soft, Non-Tender, No Organomegaly, No Distention, No Abnormal Bruit, No Mass Back Exam: Normal Inspection, Full Range of Motion, NT Extremities: Normal Inspection, Normal Range of Motion, Non-Tender, Normal Capillary Refill, No Pedal Edema Neurological: Alert, Oriented, CN II-XII Intact, Normal Cognition, Normal Gait, Normal Reflexes, No Motor/Sensory Deficits Psychiatric: Normal Affect, Normal Mood Skin Exam: Warm, Dry, Intact, Normal Color, No Rash Lymphatic: No Adenopathy Course - Vital Signs Last Recorded V/S: Last Vital Signs Temp 38.2 C H 02/02/17 18:35 Pulse 95 02/02/17 17:55 Resp 20 02/02/17 17:55 BP 109/53 L 02/02/17 17:55 Pulse Ox 95 02/02/17 17:55 - Orders/Labs/Meds Orders: Active Orders 24 hr Category Date Time Status Peripheral IV Care [RC] . DIRECTED Care 02/02/17 18:22 Active Chest 1V Frontal [CR] Stat Exams 02/02/17 18:22 Taken COMPREHENSIVE METABOLIC PN,CMP [CHEM] Stat Lab 02/02/17 18:30 Results CULTURE BLOOD [BC] Stat Lab 02/02/17 18:22 Received CULTURE BLOOD [BC] Stat Lab 02/02/17 18:30 Received INFLUENZA A+B AG SCREEN [RM] Stat Lab 02/02/17 18:24 Ordered LIPASE [CHEM] Stat Lab 02/02/17 18:30 Results UA W/MICROSCOPIC [URIN] Stat Lab 02/02/17 18:22 Ordered Sodium Chloride 0.9% [Syrex Flush] Med 02/02/17 18:22 Active 5 ml FLUSH Q8HR PRN Blood Culture x2 Reflex Set [OM.PC] Stat Oth 02/02/17 18:22 Ordered Peripheral IV Insertion Adult [OM.PC] Routine Oth 02/02/17 18:22 Ordered Medication Orders Sodium Chloride (Syrex Flush) 5 ml FLUSH Q8HR PRN PRN Reason: Keep Vein Open Labs: Laboratory Tests 02/02/17 02/02/17 02/02/17 Range/Units 18:30 18:30 18:30 WBC 13.2 H (5.0-10.0) 10^3/uL RBC 2.83 L (4.50-6.00) 10^6/uL Hgb 8.7 L (13.0-17.0) g/dL Hct 26.0 L (40.0-52.0) % MCV 91.8 (82.0-92.0) fL MCH 30.7 (27.0-31.0) pg MCHC 33.4 (32.0-36.0) g/dL RDW 22.6 H (11.5-14.5) % Plt Count 238 (150-300) 10^3/uL MPV 5.6 L (7.4-10.4) fL Add Manual Diff Yes Neutrophils % (Manual) 65 (50-70) % Band Neutrophils % 18 H (4-12) % Lymphocytes % (Manual) 9 L (20-40) % Monocytes % (Manual) 1 L (2-8) % Eosinophils % (Manual) 0 L (1-3) % Basophils % (Manual) 0 (0-1) % Metamyelocytes % 2 Myelocytes % 5 Anisocytosis 1+ slight Microcytosis 2+ moderate Tear Drop Cells Occasional Schistocytes Occasional Sodium 135 L (136-145) mmol/L Potassium 3.4 (3.3-5.3) mmol/L Chloride 101 (98-115) mmol/L Carbon Dioxide 25.5 (21.0-32.0) mmol/L BUN 10 (6-25) mg/dL Creatinine 0.65 (0.51-1.17) mg/dL Est Cr Clr Drug Dosing 136.76 mL/min Estimated GFR (MDRD) > 60 mL/min Glucose 86 (70-110) mg/dL Lactic Acid 1.4 (0.4-2.0) mmol/L Calcium 6.1 L (8.7-10.3) mg/dL Total Bilirubin 0.6 (0.2-1.0) mg/dL AST 18 (15-37) U/L ALT 22 (12-78) U/L Total Protein 6.6 (6.4-8.2) g/dL Albumin 3.14 (3.00-4.80) g/dL Lipase 61 L (73-393) U/L Meds: Medications Generic Name Dose Route Start Last Admin Trade Name Freq PRN Reason Stop Dose Admin Sodium Chloride 5 ml 02/02/17 18:22 Syrex Flush FLUSH Q8HR PRN Keep Vein Open Discontinued Medications Generic Name Dose Route Start Last Admin Trade Name Freq PRN Reason Stop Dose Admin Acetaminophen 1,000 mg 02/02/17 18:24 02/02/17 18:35 Tylenol Extra Strength PO 02/02/17 18:25 1,000 mg ONETIME ONE Administration Sodium Chloride 1,000 mls @ 999 mls/hr 02/02/17 18:22 02/02/17 18:36 Normal Saline IV 02/02/17 19:22 999 mls/hr .BOLUS ONE Administration - Radiology Interpretation Free Text/Narrative:: CXR- NAD Departure - Departure Time of Disposition: 19:51 Disposition: Admitted As Inpatient 66 Condition: Fair Clinical Impression: Hyponatremia, Bandemia without diagnosis of specific infection Fever Qualifiers: Encounter type: initial encounter - Discharge Information Referrals: Ashu Hicks MD [Primary Care Provider] - Forms: ED Department Discharge - My Orders Last 24 Hours: My Active Orders 02/02/17 18:22 Peripheral IV Care [RC] . DIRECTED Chest 1V Frontal [CR] Stat CULTURE BLOOD [BC] Stat UA W/MICROSCOPIC [URIN] Stat Sodium Chloride 0.9% [Syrex Flush] 5 ml FLUSH Q8HR PRN Blood Culture x2 Reflex Set [OM.PC] Stat Peripheral IV Insertion Adult [OM.PC] Routine 02/02/17 18:24 INFLUENZA A+B AG SCREEN [RM] Stat 02/02/17 18:30 COMPREHENSIVE METABOLIC PN,CMP [CHEM] Stat CULTURE BLOOD [BC] Stat LIPASE [CHEM] Stat - Assessment/Plan Last 24 Hours: My Active Orders 02/02/17 18:22 Peripheral IV Care [RC] . DIRECTED Chest 1V Frontal [CR] Stat CULTURE BLOOD [BC] Stat UA W/MICROSCOPIC [URIN] Stat Sodium Chloride 0.9% [Syrex Flush] 5 ml FLUSH Q8HR PRN Blood Culture x2 Reflex Set [OM.PC] Stat Peripheral IV Insertion Adult [OM.PC] Routine 02/02/17 18:24 INFLUENZA A+B AG SCREEN [RM] Stat 02/02/17 18:30 COMPREHENSIVE METABOLIC PN,CMP [CHEM] Stat CULTURE BLOOD [BC] Stat LIPASE [CHEM] Stat Assessment:: 1. fever 2. bandemia 3. dehydration 4. r/o bacteremia Plan: 1. admit to medicine- Gregor Castelan 2. IVF 125cc/hr 3. vanco/zosyn 4. repeat labs in am
[2017-02-02 18:58] LABS: CHLORIDE,CL 101 mmol/L (98-115)
[2017-02-02] MEDS ORDERED: Ibuprofen 600 MG Tab PO PRN (19:53)
[2017-02-02] MEDS ORDERED: Albuterol 0.083% 2.5 MG/3 ML Neb Soln NEB PRN (19:53)
[2017-02-02] MEDS ORDERED: Acetaminophen 325 MG Tab PO PRN (19:53)
[2017-02-02] MEDS ORDERED: Ondansetron 4 MG/2 ML SDV IV PRN (19:53)
[2017-02-02 19:59] LABS: SODIUM,NA 135 mmol/L (136-145)
[2017-02-02] MEDS: Sodium Chloride 0.9% 1,000 ML IV SCH (20:20)
[2017-02-02] MEDS: Piperacillin/Tazobactam/Dext 3.375 GM in Premix Bag 1 BAG IV SCH (20:24)
[2017-02-02] MEDS: Nicotine 14 MG/24 Hr Patch TRDERM SCH (20:25)
[2017-02-02] MEDS ORDERED: TEMAZEPAM 30 MG PO PRN (21:15)
[2017-02-02] MEDS: Temazepam 15 MG Cap PO SCH (22:01)
[2017-02-02] MEDS: Morphine 30 MG Tab.ER PO SCH (22:01)
[2017-02-02] MEDS: Gabapentin 300 MG Cap PO SCH (22:01)
[2017-02-02] MEDS ORDERED: Rivaroxaban 10 MG Tab ONE (22:27)
[2017-02-02] MEDS: Rivaroxaban 10 MG Tab PO SCH (22:30)
[2017-02-03] MEDS: Piperacillin/Tazobactam/Dext 3.375 GM in Premix Bag 1 BAG IV SCH ×4 (02:01→19:34)
[2017-02-03] MEDS: Nicotine 14 MG/24 Hr Patch TRDERM SCH (08:19)
[2017-02-03] MEDS: predniSONE 5 MG Tab PO SCH (08:19)
[2017-02-03] MEDS: Furosemide 40 MG Tab PO SCH (08:19)
[2017-02-03] MEDS: Escitalopram 10 MG Tab PO SCH (08:19)
[2017-02-03] MEDS: Potassium Chloride 20 MEQ Tab.ER PO SCH (08:19)
[2017-02-03] MEDS: Morphine 30 MG Tab.ER PO SCH ×2 (08:19→21:01)
[2017-02-03] MEDS: Dexamethasone 4 MG Tab PO SCH (08:19)
[2017-02-03] MEDS: Rivaroxaban 10 MG Tab PO SCH ×2 (08:19→21:02)
[2017-02-03 08:33] LABS: CHLORIDE,CL 107 mmol/L (98-115); SODIUM,NA 140 mmol/L (136-145)
--- NOTE | 2017-02-03 08:55 | PCM.HP ---
H&P History of Present Illness - General Date of Service: 02/03/17 Source of Information: Patient, Old Records, Provider History Limitations: Reports: No Limitations - History of Present Illness Initial Comments - Free Text/Narative: 56-year-old gentleman was admitted last night for fever and generalized malaise. Patient received chemotherapy (Cabazitaxel) 2 days ago came to the ED with body aches that started that day. Patient has Stage IV prostate cancer with skeletal and bone marrow metastasis, Dx 2015. He also had significant loose stools with abdominal cramping and a nonproductive cough. His temperature maximum was about 101. Abdomen Pain Score (Numeric/FACES): 6 Bilateral Leg Pain Score (Numeric/FACES): 3 - Related Data Allergies/Adverse Reactions: Allergies Allergy/AdvReac Type Severity Reaction Status Date / Time No Known Allergies Allergy Verified 02/03/17 02:55 Home Medications: Home Meds Escitalopram [Lexapro] 20 mg PO DAILY 03/16/16 [History] Gabapentin [Neurontin] 600 mg PO BEDTIME 12/23/16 [History] Calcium Carbonate [Calcium] 500 mg PO BID 02/02/17 [History] Cholecalciferol (Vitamin D3) [Vitamin D3] 2,000 unit PO DAILY 02/02/17 [History] Dexamethasone 4 mg PO DAILY 02/02/17 [History] Furosemide [Lasix] 40 mg PO DAILY 02/02/17 [History] Hydrocodone/Acetaminophen [Hydrocodon-Acetaminophn 10-325] 1 tab PO Q4H PRN [History] Morphine [MS Contin] 30 mg PO BID 02/02/17 [History] Pericolace 1 tab PO BID 02/02/17 [History] Potassium Chloride [Klor-Con M20] 1 tab PO DAILY 02/02/17 [History] Rivaroxaban [Xarelto] 15 mg PO BID 02/02/17 [History] Temazepam [Temazepam] 30 mg PO BEDTIME 02/02/17 [History] predniSONE [Prednisone] 10 mg PO DAILY 02/02/17 [History] Advair 500mcg/50mcg 1 puff PO BID 02/03/17 [History] Past Medical History HEENT History: Reports: Impaired Vision Cardiovascular History: Reports: Blood Clots/VTE/DVT Respiratory History: Reports: COPD Other Respiratory History: Every day smoker Gastrointestinal History: Reports: GERD Genitourinary History: Reports: Prostate Disorder Musculoskeletal History: Reports: Arthritis Other Musculoskeletal History: unsteady gait - uses motorized wheelchair at home Neurological History: Reports: None Other Neuro History: stagegering gait - requires walker or uses motorized wheelchair at home Psychiatric History: Reports: Depression Endocrine/Metabolic History: Reports: None Hematologic History: Reports: Blood Transfusion(s) Immunologic History: Reports: Immunosuppression Oncologic (Cancer) History: Reports: Bone, Prostate Dermatologic History: Reports: None - Infectious Disease History Infectious Disease History: Reports: Chicken Pox - Past Surgical History Head Surgeries/Procedures: Reports: None HEENT Surgical History: Reports: None Cardiovascular Surgical History: Reports: None Other Cardiovascular Surgeries/Procedures: port-a-cath L chest Respiratory Surgical History: Reports: None GI Surgical History: Reports: None, Colonoscopy Male Surgical History: Reports: None Neurological Surgical History: Reports: None Musculoskeletal Surgical History: Reports: Knee Replacement, Other (See Below) Other Musculoskeletal Surgeries/Procedures:: to L knee Oncologic Surgical History: Reports: Bone Marrow Aspiration, Other (See Below) Other Oncologic Surgeries/Procedures: radiation to tumor onspine - done with series in Dec 2016 Social & Family History - Family History HEENT: Reports: None Cardiac: Reports: Other (See Below) (Father cancer and stroke) Respiratory: Reports: Interstitial Lung Disease (Father lung cancer, brother with pancreatic cancer) GI: Reports: None : Reports: None OBGYN: Reports: None Musculoskeletal: Reports: None Neurological: Reports: None Psychiatric: Reports: None Endocrine/Metabolic: Reports: None Hematologic: Reports: None Immunologic: Reports: None Dermatologic: Reports: None Oncologic: Reports: Lung, Pancreatic (Brother with unknown cancer, another brother pancreatic cancer, and skin cancer,) - Tobacco Use Smoking Status *Q: Current Every Day Smoker Years of Tobacco use: 30 Packs/Tins Daily: 1 Used Tobacco, but Quit: No Second Hand Smoke Exposure: No - Caffeine Use Caffeine Use: Reports: Coffee, Soda - Alcohol Use Days Per Week of Alcohol Use: 2 Number of Drinks Per Day: 8 Total Drinks Per Week: 16 - Recreational Drug Use Recreational Drug Use: No H&P Review of Systems - Review of Systems: Review Of Systems: See Below General: Reports: Chills, Malaise, Weakness, Other (all). Denies: Fever HEENT: Reports: No Symptoms Pulmonary: Reports: No Symptoms Cardiovascular: Reports: Edema (left leg blood clot. ). Denies: Chest Pain, Palpitations Gastrointestinal: Reports: Abdominal Pain (mild ), Black Stool, Diarrhea ( significant loose stools yesterday.; ), Distension. Denies: Bloody Stool, Constipation, Vomiting Genitourinary: Reports: No Symptoms Musculoskeletal: Reports: Leg Pain Psychiatric: Reports: No Symptoms Neurological: Reports: Paresthesia (toes ) Hematologic/Lymphatic: Reports: Anemia Immunologic: Reports: No Symptoms Exam - Exam Exam: See Below - Vital Signs Vital Signs: Last Vital Signs Temp 99.1 F 02/03/17 07:00 Pulse 96 02/03/17 07:00 Resp 20 02/03/17 07:00 BP 109/59 L 02/03/17 07:00 Pulse Ox 98 02/03/17 07:00 Weight: 206 lb 12.8 oz - Exam Quality Assessment: DVT Prophylaxis. No: Supplemental Oxygen, Skin Breakdown HEENT: Conjunctiva Clear, EACs Clear, Hearing Intact, Nares Patent, Normal Nasal Septum, Other (Bilateral tonsillar exudate--culture), PERRLA. No: Mucosa Moist & [place] (Dry mucous membranes) Neck: Supple, Trachea Midline, 2 Lungs: Clear to Auscultation, Normal Respiratory Effort Cardiovascular: Regular Rate, Regular Rhythm GI/Abdominal Exam: Soft. No: Distended (Male) Exam: No Hernia, Normal Inspection, Normal Prostate, Circumcised Rectal (Males) Exam: Deferred Back Exam: No: CVA Tenderness (L), CVA Tenderness (R) Extremities: Pedal Edema Skin: Warm, Dry, Intact Neurological: Cranial Nerves Intact, Reflexes Equal Bilateral Neuro Extensive - Mental Status: Alert, Oriented x3, Normal Mood/Affect, Normal Cognition Neuro Extensive - Motor, Sensory, Reflexes: CN II-XII Intact, Normal Gait, Normal Reflexes Psychiatric: Alert, Normal Affect, Normal Mood - Patient Data Lab Results Last 24 hrs: Laboratory Results - last 24 hr 02/03/17 Range/Units 07:40 WBC 10.4 H (5.0-10.0) 10^3/uL RBC 2.65 L (4.50-6.00) 10^6/uL Hgb 7.9 L (13.0-17.0) g/dL Hct 24.4 L (40.0-52.0) % MCV 92.2 H (82.0-92.0) fL MCH 29.9 (27.0-31.0) pg MCHC 32.4 (32.0-36.0) g/dL RDW 21.9 H (11.5-14.5) % Plt Count 215 (150-300) 10^3/uL MPV 5.8 L (7.4-10.4) fL Neut % (Auto) 88.4 H (50.0-70.0) % Lymph % (Auto) 8.5 L (20.0-40.0) % [place] % (Auto) 1.6 L (2.0-8.0) % Eos % (Auto) 1.1 (1.0-3.0) % Baso % (Auto) 0.4 (0.0-1.0) % Neut # (Auto) 9.2 H (2.5-7.0) 10^3/uL Lymph # (Auto) 0.9 L (1.0-4.0) 10^3/uL [place] # (Auto) 0.2 (0.1-0.8) 10^3/uL Eos # (Auto) 0.1 (0.1-0.3) 10^3/uL Baso # (Auto) 0.0 (0.0-0.1) 10^3/uL Result Diagrams: 02/03/17 07:40 02/03/17 07:40 *Q Meaningful Use (ADM) - VTE *Q VTE Criteria *Q: - Stroke *Q Stroke Criteria *Q: - AMI *Q AMI Criteria *Q: Problem List Initiated/Reviewed/Updated: Yes Orders Last 24hrs: Active Orders 24 hr Category Date Time Status CULTURE WOUND [RM] Routine Lab 02/02/17 23:00 Ordered VANCOMYCIN TROUGH [CHEM] Routine Lab 02/03/17 21:30 Ordered Acetaminophen/HYDROcodone [[place] 325-10 MG] Med 02/02/17 21:15 Active 1 tab PO Q4H PRN Dexamethasone Med 02/03/17 09:00 Active 4 mg PO DAILY Escitalopram [Lexapro] Med 02/03/17 09:00 Active 20 mg PO DAILY Fluticasone/Vilanterol [Breo Ellipta 200-25 MCG Med 02/03/17 09:00 Active Inhalation Kit] 1 each IH DAILY Furosemide [Lasix] Med 02/03/17 09:00 Active 40 mg PO DAILY Gabapentin [Neurontin] Med 02/02/17 21:00 Active 600 mg PO BEDTIME Morphine [MS Contin] Med 02/02/17 21:00 Active 30 mg PO BID Potassium Chloride [Klor-Con M20] Med 02/03/17 09:00 Active 20 meq PO DAILY Rivaroxaban [Xarelto] Med 02/03/17 09:00 Active 15 mg PO BID Temazepam [Restoril] Med 02/02/17 21:45 Active 30 mg PO BEDTIME Vancomycin 1.25 gm Med 02/02/17 22:00 Active Sodium Chloride 0.9% [Normal Saline] 250 ml IV Q8H Vancomycin Pharmacy to Dose [Pharmacy to Dose - Med 02/02/17 21:00 Pending Vancomycin] 1 dose .XX ASDIRECTED predniSONE Med 02/03/17 09:00 Active 10 mg PO DAILY Medication Orders Acetaminophen (Tylenol) 650 mg PO Q4H PRN PRN Reason: Pain (Mild 1-3)/fever Last Admin: 02/03/17 02:58 Dose: 650 mg Hydrocodone Bitart/Acetaminophen ([place] 325-10 Mg) 1 tab PO Q4H PRN PRN Reason: Pain Albuterol (Proventil Neb Soln) 2.5 mg NEB Q2H PRN PRN Reason: Shortness Of Breath/wheezing Dexamethasone (Dexamethasone) 4 mg PO DAILY [facility] Last Admin: 02/03/17 08:19 Dose: 4 mg Escitalopram Oxalate (Lexapro) 20 mg PO DAILY [facility] Last Admin: 02/03/17 08:19 Dose: 20 mg Furosemide (Lasix) 40 mg PO DAILY [facility] Last Admin: 02/03/17 08:19 Dose: 40 mg Gabapentin (Neurontin) 600 mg PO BEDTIME [facility] Last Admin: 02/02/17 22:01 Dose: 600 mg Piperacillin/Tazobactam/ (Dextrose 3.375 gm/ Premix) 50 mls @ 100 mls/hr IV Q6H [facility] Last Admin: 02/03/17 08:18 Dose: 100 mls/hr Infusion: 02/03/17 02:31 Dose: 100 mls/hr Admin: 02/03/17 02:01 Dose: 100 mls/hr Infusion: 02/02/17 20:54 Dose: 100 mls/hr Admin: 02/02/17 20:24 Dose: 100 mls/hr Sodium Chloride (Normal Saline) 1,000 mls @ 125 mls/hr IV ASDIRECTED [facility] Last Admin: 02/02/17 20:20 Dose: 125 mls/hr Vancomycin HCl 1.25 gm/ Sodium (Chloride) 250 mls @ 166.667 mls/hr IV Q8H [facility] Last Admin: 02/03/17 05:39 Dose: 166.667 mls/hr Admin: 02/02/17 22:18 Dose: 166.667 mls/hr Ibuprofen (Motrin) 600 mg PO Q6H PRN PRN Reason: Pain (mild 1-3) Morphine Sulfate (Ms Contin) 30 mg PO BID [facility] Last Admin: 02/03/17 08:19 Dose: 30 mg Admin: 02/02/17 22:01 Dose: 30 mg Nicotine (Habitrol) 14 mg TRDERM DAILY [facility] Last Admin: 02/03/17 08:19 Dose: Not Given Admin: 02/02/17 20:25 Dose: Not Given Ondansetron HCl (Zofran) 4 mg IV Q6H PRN PRN Reason: Nausea/Vomiting Potassium Chloride (Klor-Con M20) 20 meq PO DAILY [facility] Last Admin: 02/03/17 08:19 Dose: 20 meq Prednisone (Prednisone) 10 mg PO DAILY [facility] Last Admin: 02/03/17 08:19 Dose: 10 mg Rivaroxaban (Xarelto) 15 mg PO BID [facility] Last Admin: 02/03/17 08:19 Dose: 15 mg Admin: 02/02/17 22:30 Dose: 15 mg Sodium Chloride (Syrex Flush) 5 ml FLUSH Q8HR PRN PRN Reason: Keep Vein Open Temazepam (Restoril) 30 mg PO BEDTIME [facility] Last Admin: 02/02/17 22:01 Dose: 30 mg Vancomycin HCl (Pharmacy To Dose - Vancomycin) 1 dose .XX ASDIRECTED [facility] Assessment/Plan Comment:: 56-year-old gentleman was admitted last night for fever and generalized malaise. Patient received chemotherapy (Cabazitaxel) 2 days ago came to the ED with body aches that started that day. Patient has Stage IV prostate cancer with skeletal and bone marrow metastasis, Dx 2015. He also had significant loose stools with abdominal cramping and a nonproductive cough. His temperature maximum was about 101. Pertinent ED workup WBC 13,000 with elevation bandemia Fever Lactic acid normal Acutely elevated alkaline phosphatase Urine unremarkable chest x-ray unremarkable for infiltrate however progression of metastatic bone disease Primary impression Fever unknown origin, qSOFA 0/3; lactic acid normal; blood cultures, vancomycin and Zosyn ongoing, throat culture today, continue surveillance of urine and blood cultures, abdominal US. Surveillance of port culture, Continue IV fluids Chemotherapy-induced neutropenia, receiving Granix, white count improved Immunocompromised host, culture surveillance, IV antibiotics and fluid resuscitation Anemia, anysocytosis; progressive Hyperphosphatemia, likely related to bone metastasis however acutely elevated, Tbili normal, AST ALT normal along with ratio, R/O Choledocholithiasis; RUQ ultrasound R/O Choledocholithiasis, see above Depression, on Lexapro, stable, good family support Tobacco dependency, seems stable, refusing replacement therapy History of DVT, CHRISTINA stockings, factor Xa inhibitor Pain management, recently increased MS Contin to 30 mg bid. Increased Hydrocodone to 10 mg q 4 h PRN. ONCOLOGY PLAN Continue Zoladex 10.8 mg subcut q 3 months, here at [facility]. Changed from Xgeva to Zometa. Continue Prednisone 5 mg PO bid. Continue Enzalutamide 160 mg PO daily till he starts Cabazitaxel. Overall plan, continue IV antibiotics and fluid resuscitation, ultrasound today to rule out Choledocholithiasis,
[2017-02-03] MEDS ORDERED: Fluticasone/Vilanterol 200 MCG/25 MCG Inhalation Powder Kit of 14 IH SCH ×2 (09:00)
[2017-02-03] MEDS: Sodium Chloride 0.9% 1,000 ML IV SCH ×2 (09:17→20:52)
[2017-02-03] MEDS: Acetaminophen/HYDROcodone 325-10 MG Tab PO PRN ×3 (09:24→19:11)
[2017-02-03] MEDS: Fluticasone/Salmeterol 500-50 MCG Inhalation Powder 14/Diskus INH SCH ×2 (11:51→20:54)
[2017-02-03] MEDS: Gabapentin 300 MG Cap PO SCH (20:55)
[2017-02-03] MEDS: Temazepam 15 MG Cap PO SCH (21:01)
[2017-02-04] MEDS: Piperacillin/Tazobactam/Dext 3.375 GM in Premix Bag 1 BAG IV SCH ×4 (02:08→20:14)
[2017-02-04] MEDS: Acetaminophen/HYDROcodone 325-10 MG Tab PO PRN ×3 (06:12→17:35)
[2017-02-04 08:01] LABS: CHLORIDE,CL 107 mmol/L (98-115); SODIUM,NA 140 mmol/L (136-145)
[2017-02-04] MEDS: Fluticasone/Salmeterol 500-50 MCG Inhalation Powder 14/Diskus INH SCH ×2 (08:43→20:24)
[2017-02-04] MEDS: Rivaroxaban 10 MG Tab PO SCH ×2 (08:44→20:25)
[2017-02-04] MEDS: predniSONE 5 MG Tab PO SCH (08:45)
[2017-02-04] MEDS: Potassium Chloride 20 MEQ Tab.ER PO SCH (08:46)
[2017-02-04] MEDS: Furosemide 40 MG Tab PO SCH (08:46)
[2017-02-04] MEDS: Dexamethasone 4 MG Tab PO SCH (08:47)
[2017-02-04] MEDS: Morphine 30 MG Tab.ER PO SCH ×2 (08:47→20:25)
[2017-02-04] MEDS: Escitalopram 10 MG Tab PO SCH (08:47)
[2017-02-04] MEDS: Nicotine 14 MG/24 Hr Patch TRDERM SCH (08:48)
[2017-02-04] MEDS: Sodium Chloride 0.9% 1,000 ML IV SCH (09:33)
--- NOTE | 2017-02-04 11:35 | PCM.PN ---
- General Info Date of Service: 02/11/17 Functional Status: Denies: Pain Controlled (significant improvement from admission), Tolerating Diet - Review of Systems General: Reports: Weakness (improving since yesterday). Denies: Fever HEENT: Denies: No Symptoms Pulmonary: Denies: No Symptoms Cardiovascular: Denies: Chest Pain, Palpitations Gastrointestinal: Denies: Abdominal Pain (mild), Nausea, Vomiting Genitourinary: Denies: No Symptoms Musculoskeletal: Reports: Other (initially experienced generalized pain/ achiness. improving ) Skin: Denies: No Symptoms - Patient Data Vitals - Most Recent: Last Vital Signs Temp 98.3 F 02/04/17 06:31 Pulse 83 02/04/17 06:31 Resp 18 02/04/17 06:31 BP 103/58 L 02/04/17 06:31 Pulse Ox 98 02/04/17 06:31 Weight - Most Recent: 206 lb 12.8 oz I&O - Last 24 Hours: Intake & Output 02/03/17 02/04/17 02/04/17 22:59 06:59 14:59 Intake Total 1530 1375 Balance 1530 1375 Lab Results Last 24 Hours: Laboratory Results - last 24 hr 02/03/17 02/04/17 02/04/17 Range/Units 21:35 07:15 07:15 WBC 10.6 H (5.0-10.0) 10^3/uL RBC 2.58 L (4.50-6.00) 10^6/uL Hgb 7.7 L (13.0-17.0) g/dL Hct 24.1 L (40.0-52.0) % MCV 93.3 H (82.0-92.0) fL MCH 29.7 (27.0-31.0) pg MCHC 31.8 L (32.0-36.0) g/dL RDW 22.4 H (11.5-14.5) % Plt Count 196 (150-300) 10^3/uL MPV 6.4 L (7.4-10.4) fL Neut % (Auto) 83.8 H (50.0-70.0) % Lymph % (Auto) 11.3 L (20.0-40.0) % [place] % (Auto) 3.1 (2.0-8.0) % Eos % (Auto) 1.3 (1.0-3.0) % Baso % (Auto) 0.5 (0.0-1.0) % Neut # (Auto) 8.9 H (2.5-7.0) 10^3/uL Lymph # (Auto) 1.2 (1.0-4.0) 10^3/uL [place] # (Auto) 0.3 (0.1-0.8) 10^3/uL Eos # (Auto) 0.1 (0.1-0.3) 10^3/uL Baso # (Auto) 0.1 (0.0-0.1) 10^3/uL Sodium 140 (136-145) mmol/L Potassium 4.0 (3.3-5.3) mmol/L Chloride 107 (98-115) mmol/L Carbon Dioxide 23.8 (21.0-32.0) mmol/L BUN 9 (6-25) mg/dL Creatinine 0.62 (0.51-1.17) mg/dL Est Cr Clr Drug Dosing 143.38 mL/min Estimated GFR (MDRD) > 60 mL/min Glucose 107 (70-110) mg/dL Calcium 6.7 L (8.7-10.3) mg/dL Total Bilirubin 0.3 (0.2-1.0) mg/dL AST 18 (15-37) U/L ALT 21 (12-78) U/L Alkaline Phosphatase 899 H (46-116) IU/L Total Protein 6.0 L (6.4-8.2) g/dL Albumin 2.52 L (3.00-4.80) g/dL Vancomycin Trough 12.3 (10-20) ug/mL Dann Results Last 24 Hours: Microbiology 02/02/17 23:00 Wound Culture - Preliminary Chest - Left NO GROWTH AFTER 1 DAY 02/03/17 09:20 Throat Culture - Preliminary Throat YEAST Med Orders - Current: Current Medications Acetaminophen (Tylenol) 650 mg PO Q4H PRN PRN Reason: Pain (Mild 1-3)/fever Last Admin: 02/03/17 02:58 Dose: 650 mg Hydrocodone Bitart/Acetaminophen ([place] 325-10 Mg) 1 tab PO Q4H PRN PRN Reason: Pain Last Admin: 02/04/17 06:12 Dose: 1 tab Albuterol (Proventil Neb Soln) 2.5 mg NEB Q2H PRN PRN Reason: Shortness Of Breath/wheezing Dexamethasone (Dexamethasone) 4 mg PO DAILY [facility] Last Admin: 02/04/17 08:47 Dose: 4 mg Escitalopram Oxalate (Lexapro) 20 mg PO DAILY [facility] Last Admin: 02/04/17 08:47 Dose: 20 mg Furosemide (Lasix) 40 mg PO DAILY [facility] Last Admin: 02/04/17 08:46 Dose: 40 mg Gabapentin (Neurontin) 600 mg PO BEDTIME [facility] Last Admin: 02/03/17 20:55 Dose: 600 mg Piperacillin/Tazobactam/ (Dextrose 3.375 gm/ Premix) 50 mls @ 100 mls/hr IV Q6H [facility] Last Admin: 02/04/17 08:48 Dose: 100 mls/hr Sodium Chloride (Normal Saline) 1,000 mls @ 125 mls/hr IV ASDIRECTED [facility] Last Admin: 02/04/17 09:33 Dose: 125 mls/hr Vancomycin HCl 1.5 gm/ Sodium (Chloride) 250 mls @ 166.667 mls/hr IV Q8H [facility] Last Admin: 02/04/17 06:11 Dose: 166.667 mls/hr Ibuprofen (Motrin) 600 mg PO Q6H PRN PRN Reason: Pain (mild 1-3) Morphine Sulfate (Ms Contin) 30 mg PO BID [facility] Last Admin: 02/04/17 08:47 Dose: 30 mg Nicotine (Habitrol) 14 mg TRDERM DAILY [facility] Last Admin: 02/04/17 08:48 Dose: Not Given Ondansetron HCl (Zofran) 4 mg IV Q6H PRN PRN Reason: Nausea/Vomiting Potassium Chloride (Klor-Con M20) 20 meq PO DAILY [facility] Last Admin: 02/04/17 08:46 Dose: 20 meq Prednisone (Prednisone) 10 mg PO DAILY [facility] Last Admin: 02/04/17 08:45 Dose: 10 mg Rivaroxaban (Xarelto) 15 mg PO BID [facility] Last Admin: 02/04/17 08:44 Dose: 15 mg Fluticasone/Salmeterol (Advair Diskus 500-50) 1 puff INH BID [facility] Last Admin: 02/04/17 08:43 Dose: 1 puff Sodium Chloride (Syrex Flush) 5 ml FLUSH Q8HR PRN PRN Reason: Keep Vein Open Tbo-Filgrastim (Granix) 480 mcg SUBCUT DAILY [facility] Stop: 02/05/17 11:01 Last Admin: 02/04/17 08:48 Dose: 480 mcg Temazepam (Restoril) 30 mg PO BEDTIME [facility] Last Admin: 02/03/17 21:01 Dose: 30 mg Vancomycin HCl (Pharmacy To Dose - Vancomycin) 1 dose .XX ASDIRECTED [facility] Discontinued Medications Acetaminophen (Tylenol Extra Strength) 1,000 mg PO ONETIME ONE Stop: 02/02/17 18:25 Last Admin: 02/02/17 18:35 Dose: 1,000 mg Sodium Chloride (Normal Saline) 1,000 mls @ 999 mls/hr IV .BOLUS ONE Stop: 02/02/17 19:22 Last Admin: 02/02/17 18:36 Dose: 999 mls/hr Vancomycin HCl 1.25 gm/ Sodium (Chloride) 250 mls @ 166.667 mls/hr IV Q8H [facility] Last Admin: 02/03/17 14:00 Dose: 166.667 mls/hr Non-Formulary Medication (Temazepam) 30 mg PO BEDTIME PRN PRN Reason: Insomnia Rivaroxaban (Xarelto) Confirm Administered Dose 20 mg .ROUTE .STK-MED ONE Stop: 02/02/17 22:28 Last Admin: 02/02/17 22:51 Dose: Not Given Sodium Chloride (Syrex Flush) 5 ml FLUSH Q8HR PRN PRN Reason: Keep Vein Open Vancomycin HCl (Pharmacy To Dose - Vancomycin) 1 dose .XX ASDIRECTED [facility] - Exam General: Mild Distress. No: Alert, Oriented, Cooperative Neck: No: Supple Lungs: No: Clear to Auscultation, Normal Respiratory Effort Cardiovascular: No: Regular Rate, Regular Rhythm GI/Abdominal Exam: Tender (mild discomfort diffuse to palpation.). No: Normal Bowel Sounds, Soft Skin: No: Warm, Dry Psy/Mental Status: No: Alert, Normal Mood - Problem List Review Problem List Initiated/Reviewed/Updated: Yes - My Orders Last 24 Hours: My Active Orders 02/05/17 05:11 CBC WITH AUTO DIFF [HEME] Routine - Plan Plan:: 56-year-old gentleman was admitted last night for fever and generalized malaise. Patient received chemotherapy (Cabazitaxel) 2 days ago came to the ED with body aches that started that day. Patient has Stage IV prostate cancer with skeletal and bone marrow metastasis, Dx 2015. He also had significant loose stools with abdominal cramping and a nonproductive cough. His temperature maximum was about 101. Pertinent ED workup WBC 13,000 with elevation bandemia Fever Lactic acid normal Acutely elevated alkaline phosphatase Urine unremarkable chest x-ray unremarkable for infiltrate however progression of metastatic bone disease Primary impression Fever unknown origin, qSOFA 0/3; lactic acid normal; blood cultures, vancomycin and Zosyn ongoing, throat culture today, continue surveillance of urine and blood cultures, abdominal US. Surveillance of port culture, Continue IV fluids Chemotherapy-induced neutropenia, receiving Granix, white count improved Immunocompromised host, culture surveillance, IV antibiotics and fluid resuscitation Anemia, anysocytosis; progressive Hyperphosphatemia, likely related to bone metastasis however acutely elevated, Tbili normal, AST ALT normal along with ratio, R/O Choledocholithiasis; RUQ ultrasound R/O Choledocholithiasis, see above Depression, on Lexapro, stable, good family support Tobacco dependency, seems stable, refusing replacement therapy History of DVT, CHRISTINA stockings, factor Xa inhibitor Pain management, recently increased MS Contin to 30 mg bid. Increased Hydrocodone to 10 mg q 4 h PRN. ONCOLOGY PLAN Continue Zoladex 10.8 mg subcut q 3 months, here at [facility]. Changed from Xgeva to Zometa. Continue Prednisone 5 mg PO bid. Continue Enzalutamide 160 mg PO daily till he starts Cabazitaxel. Overall plan, continue IV antibiotics and fluid resuscitation, ultrasound to rule out Choledocholithiasis, informed verbal negative report. Patient request discharge from hospitalization. He states he's noting that he is feeling better and would like to go home. Long discussion held with him after review of case with . Encouraged patient to receive full 48 hours of treatment plan to ensure adequate recovery. Informed him current culture reports are preliminary. His white count is 10.6 today which has improved from 13.2. Significant bands noted on previous lab report. Discussed importance of hospital care to assure appropriate recovery of his elevated white count and fever. Patient does agree to continue as suggested. We'll obtain a repeat CBC in the a.m.
[2017-02-04] MEDS: Temazepam 15 MG Cap PO SCH (20:25)
[2017-02-04] MEDS: Gabapentin 300 MG Cap PO SCH (20:26)
[2017-02-05] MEDS: Piperacillin/Tazobactam/Dext 3.375 GM in Premix Bag 1 BAG IV SCH ×2 (02:06→09:10)
[2017-02-05] MEDS: Sodium Chloride 0.9% 1,000 ML IV SCH (04:34)
[2017-02-05] MEDS: Acetaminophen/HYDROcodone 325-10 MG Tab PO PRN (05:15)
[2017-02-05 06:50] VITALS: BP 122/52
[2017-02-05] MEDS: Rivaroxaban 10 MG Tab PO SCH (08:35)
[2017-02-05] MEDS: Fluticasone/Salmeterol 500-50 MCG Inhalation Powder 14/Diskus INH SCH (08:35)
[2017-02-05] MEDS: Dexamethasone 4 MG Tab PO SCH (08:35)
[2017-02-05] MEDS: Potassium Chloride 20 MEQ Tab.ER PO SCH (08:36)
[2017-02-05] MEDS: Escitalopram 10 MG Tab PO SCH (08:36)
[2017-02-05] MEDS: Furosemide 40 MG Tab PO SCH (08:36)
[2017-02-05] MEDS: Nicotine 14 MG/24 Hr Patch TRDERM SCH (08:36)
[2017-02-05] MEDS: predniSONE 5 MG Tab PO SCH (08:37)
[2017-02-05] MEDS: Morphine 30 MG Tab.ER PO SCH (09:32)
[2017-02-05] MEDS ORDERED: Nystatin Susp 100,000 Unit/ML 5 ML UD Cup PO ONE (10:12)
[2017-02-05] MEDS ORDERED: Nystatin Susp 100,000 Unit/ML 5 ML UD Cup ONE (10:23)
--- NOTE | 2017-02-10 08:16 | DISCH ---
DISCHARGE DIAGNOSIS: Fever of unknown origin/elevated white count, which did improve at the time of discharge. Remaining diagnoses includes immunocompromised host, anemia, hypophosphatemia, depression, tobacco dependency, history of prostatic cancer with metastasis. He does receive chemotherapy. BRIEF HISTORY: This patient was admitted at age 56 for fever and generalized malaise. He did receive chemotherapy two days prior to admission to the emergency room. He developed fever and body aches on the day of the evaluation. He experienced loose stools along with abdominal cramping and did complain of a nonproductive cough. His temperature at maximum was 101 degrees. Over the course of his hospitalization, lab work and diagnostics were obtained. He did receive IV vancomycin and Zosyn along with his home medications. At the time of discharge, his white count and his fever returned to therapeutic level and his RBCs/hemoglobin were improving. LABS AND DIAGNOSTICS: He did have a wound culture, a urine culture, stool culture which on day 2 had no growth. He also had an influenza type A and B completed, which were negative. His throat culture on day 2 did indicate a yeast infection. Lab was obtained and his white count on 02/04/2017 was 10.6 and 02/05/2017 was 9.0, hemoglobin improved from 7.7 to 8.0. MEDICATIONS: He was discharged home on his home medications, which included Advair 500/50 one puff b.i.d., KCl 1 tablet daily, Lasix 40 mg daily, Xarelto 15 mg b.i.d., prednisone 10 mg daily, temazepam 30 mg at bedtime, dexamethasone 4 mg daily, cholecalciferol 2000 units daily, calcium carbonate 500 b.i.d., Lexapro 20 daily, Neurontin 600 at bedtime, MS 30 mg b.i.d., hydrocodone 10/325 one every four hours as needed, Jennifer-Colace one tablet b.i.d., nystatin swish and gargle q.i.d. REVIEW OF SYSTEMS: GENERAL: His weakness is improving, no fever. HEENT: Negative. PULMONARY: Rare cough. No congestion. CARDIOVASCULAR: No chest pain or palpitations. GI: He does have mild abdominal pain, which has been persistent over the course of the last several weeks. : No symptoms. MUSCULOSKELETAL: He did note improvement of his generalized pain and achiness. PHYSICAL EXAM ON DISCHARGE: HEENT: Negative. NECK: Supple. RESPIRATORY: Lung sounds are clear to auscultation without cough or congestion. CARDIOVASCULAR: Heart rate and rhythm is regular. S1 and S2. ABDOMEN: Soft. There is mild discomfort with diffuse tenderness to light palpation. Bowel sounds are normal. SKIN: Warm and dry to touch. DISPOSITION: The patient is going to be discharged to home setting. He was instructed to follow up with Israel Shankar, who he sees on a routine basis on Monday for the evaluation. Please refer to his discharge plan/instructions for his home education and materials that were provided upon discharge. /[id number]/MODL MTDD
== END 2017-02-05 10:43 | disposition home or self-care (01) | DRG 723 ==
LOC: KA.ED 17:44 → KA.MS 20:04
PROVIDERS: ADMIT Physician Assistant Medical; ATTEND Nurse Practitioner Family
DX: C61 Malignant neoplasm of prostate (principal); C79.51 Secondary malignant neoplasm of bone; C79.52 Secondary malignant neoplasm of bone marrow; E87.1 Hypo-osmolality and hyponatremia; R50.9 Fever, unspecified; J44.9 Chronic obstructive pulmonary disease, unspecified; K21.9 Gastro-esophageal reflux disease without esophagitis; F32.9 Major depressive disorder, single episode, unspecified; D70.1 Agranulocytosis secondary to cancer chemotherapy; T45.1X5A Adverse effect of antineoplastic and immunosuppressive drugs, initial encounter; Y92.019 Unspecified place in single-family (private) house as the place of occurrence of the external cause; D64.81 Anemia due to antineoplastic chemotherapy; E83.39 Other disorders of phosphorus metabolism; G89.3 Neoplasm related pain (acute) (chronic); D72.825 Bandemia; E86.0 Dehydration; F17.200 Nicotine dependence, unspecified, uncomplicated; Z86.718 Personal history of other venous thrombosis and embolism; Z79.899 Other long term (current) drug therapy
CPT/HCPCS: 36415; 71010; 76705; 80048; 80053; 80202; 81001; 83605; 83690; 85025; 87040; 87045; 87046; 87070; 87086; 87804; 89055; 96360; 99285; A9270-GY; J1447; J2543; J3370; J7030; J7050; J8540

== ENCOUNTER 2017-10-09 11:45 | Inpatient (IN) | payer MEDICAID ==
[2017-10-09] MEDS ORDERED: Ondansetron 4 MG/2 ML SDV IV PRN (11:54)
[2017-10-09] MEDS ORDERED: Sodium Chloride 0.9% 500 ML IV SCH (12:15)
[2017-10-09 13:10] LABS: ANION GAP 15.6 mmol/L (5-15); CHLORIDE,CL 103 mmol/L (98-115); SODIUM,NA 142 mmol/L (136-145)
[2017-10-09] MEDS: Albuterol/Ipratropium 3.0-0.5 MG/3 ML Neb Soln NEB SCH ×3 (13:23→22:19)
[2017-10-09] MEDS: Dicyclomine 10 MG Cap PO SCH ×5 (14:00→20:32)
[2017-10-09] MEDS: Dextrose 5%-0.45% NaCl 1,000 ML IV SCH (14:01)
[2017-10-09] MEDS ORDERED: MOMETASONE INH PRN (14:46)
[2017-10-09] MEDS ORDERED: FORMOTEROL INH PRN (14:46)
[2017-10-09] MEDS ORDERED: Temazepam 15 MG Cap PO PRN (14:46)
[2017-10-09] MEDS ORDERED: ALPRAZolam 0.25 MG Tab PO PRN (14:46)
[2017-10-09] MEDS ORDERED: Nystatin Susp 100,000 Unit/ML 5 ML UD Cup PO PRN (14:46)
[2017-10-09] MEDS ORDERED: Lidocaine/Prilocaine 2.5-2.5% Crm 5 GM Tube TOP PRN (14:46)
[2017-10-09] MEDS ORDERED: Non-Formulary Medication 1 Each PO PRN ×2 (14:46)
[2017-10-09] MEDS ORDERED: LIDOCAINE VISC 2% PO PRN ×3 (15:43)
[2017-10-09] MEDS ORDERED: [UNRECOGNIZED DRUG - OTHER] PO PRN ×3 (15:43)
[2017-10-09] MEDS: metroNIDAZOLE 500 MG Tab PO SCH ×2 (15:52→22:19)
[2017-10-09] MEDS: Gabapentin 300 MG Cap PO SCH ×2 (15:52→20:44)
[2017-10-09] MEDS: Bisacodyl 5 MG Tab PO SCH ×2 (15:52→20:33)
[2017-10-09] MEDS: Bumetanide 1 MG Tab PO SCH (15:52)
[2017-10-09] MEDS: predniSONE 10 MG Tab PO SCH (15:52)
[2017-10-09] MEDS: Escitalopram 10 MG Tab PO SCH (15:52)
[2017-10-09] MEDS: Acetaminophen/HYDROcodone 325-10 MG Tab PO PRN (15:59)
[2017-10-09] MEDS: Modafinil 200 MG Tab PO SCH (17:39)
[2017-10-09] MEDS: buPROPion 150 MG Tab.ER PO SCH (17:39)
[2017-10-09] MEDS: Cholecalciferol (Vitamin D3) 1,000 Unit Tab PO SCH (17:46)
[2017-10-09] MEDS: Potassium Chloride 20 MEQ Tab.ER PO SCH (17:46)
[2017-10-09] MEDS ORDERED: Acetaminophen 325 MG Tab PO PRN (20:02)
[2017-10-09] MEDS: Morphine 30 MG Tab.ER PO SCH (20:32)
[2017-10-09] MEDS: B.Bifidum/B.Longum/L.Acidophilus/L.Rhamnosus (Probiotic) Cap PO SCH (20:33)
[2017-10-09] MEDS ORDERED: Rivaroxaban 10 MG Tab PO SCH (21:00)
[2017-10-10] MEDS: Dextrose 5%-0.45% NaCl 1,000 ML IV SCH ×2 (00:31→10:36)
[2017-10-10] MEDS: Albuterol/Ipratropium 3.0-0.5 MG/3 ML Neb Soln NEB SCH (05:56)
[2017-10-10] MEDS: metroNIDAZOLE 500 MG Tab PO SCH ×2 (07:23→16:30)
[2017-10-10] MEDS: Bisacodyl 5 MG Tab PO SCH (08:09)
[2017-10-10] MEDS: Bumetanide 1 MG Tab PO SCH (08:09)
[2017-10-10] MEDS: B.Bifidum/B.Longum/L.Acidophilus/L.Rhamnosus (Probiotic) Cap PO SCH (08:10)
[2017-10-10] MEDS: predniSONE 10 MG Tab PO SCH (08:10)
[2017-10-10] MEDS: buPROPion 150 MG Tab.ER PO SCH (08:10)
[2017-10-10] MEDS: Gabapentin 300 MG Cap PO SCH (08:10)
[2017-10-10] MEDS: Escitalopram 10 MG Tab PO SCH (08:11)
[2017-10-10] MEDS: Dicyclomine 10 MG Cap PO SCH ×3 (08:12→18:25)
[2017-10-10] MEDS: Modafinil 200 MG Tab PO SCH (08:12)
[2017-10-10] MEDS: Morphine 30 MG Tab.ER PO SCH (08:12)
[2017-10-10] MEDS ORDERED: Furosemide 40 MG Tab PO SCH (09:00)
[2017-10-10] MEDS ORDERED: ENZALUTAMIDE 40 MG PO SCH (09:00)
[2017-10-10] MEDS ORDERED: Dextrose 5%-0.45% NaCl 1,000 ML IV SCH (10:30)
[2017-10-10] MEDS ORDERED: Albuterol/Ipratropium 3.0-0.5 MG/3 ML Neb Soln NEB PRN (11:00)
--- NOTE | 2017-10-10 11:34 | PN ---
10/10/2017 PATIENT NAME: ELIANE OLSON This patient was admitted yesterday. He is 57 years old. Does have ongoing chemotherapy due to his primary prostate CA with metastasis to the bone and liver. However, he saw Israel Shankar yesterday at [facility] with concerns about diarrhea, some ongoing abdominal pain. He had been outside in significant sun and fishing, the day prior. He stated him and his brother ate hamburger, did not appear to be to be contaminated. He woke up in the middle of the night with some abdominal pain, loose stools, quite watery, frequent. He also became quite shortness of breath, difficult catching his breath. He denied any fevers or chills. The patient does see Dr. Hicks in Oncology. He was quite weak and some lightheadedness and nausea, however, no emesis noted. The patient had been on recent antibiotics due to an abscess to his back. These antibiotics were extended due to an ongoing abscess which I had I and D'd on his left great toe a few days after his initial I and D of his back. PERTINENT ED WORKUP: Did include stool cultures for Shigella like toxin, still pending. Chest x-ray demonstrated no active cardiopulmonary disease. ONCOLOGY HISTORY: The patient with stage IV prostate cancer with skeletal and bone metastasis diagnosed on December 16, 2015. The patient, six days ago, did receive Zoladex and he continues with Filgrastim, however, converted to Granix at [facility] here. LABS: Dated October 09, white count 24,000, hemoglobin 11.1, hematocrit 34. Sodium 142, potassium 3.9. BUN and creatinine normal. Alkaline phosphatase 151. BNP 141. Urinalysis, moderate bacteria, cloudy in appearance. SUBJECTIVE: The patient feels much better today. Does desire to go home. However, he did have a temperature of 101.7 last night at 2200. PHYSICAL EXAM: VITAL SIGNS: Blood pressure 142/78, temperature now down to 99.3, heart rate 81, O2 sats 95% on room air, and respiratory rate 18. GENERAL: The patient is alert and oriented. Lungs: Clear to auscultation. CV: Regular rate and rhythm. GI: Nontender, feels much better. Tolerating diet, however, he does have hypertonic bowel tones. EXTREMITIES: Does have some edema in his lower extremities. LABS: Remain pending include stool for C. diff, bacterial culture, lactoferrin, and occult blood. Flatplate and upright demonstrates mild gaseous distention of the stomach and numerous bowel loops, however, not consistent with obstruction. PRIMARY HOSPITAL PROBLEMS: 1. Gastroenteritis. Ongoing surveillance for C. diff, lactoferrin, occult blood, and stool for Shigella-like toxins and stool culture pending. 2. Dehydration, becoming more euvolemic. Decrease IV fluids. Advance diet. 3. Diverticulosis, no sign of acute diverticulitis. 4. Recent chemotherapy, post six days, receiving Granix. 5. History of DVT, currently on Xarelto. OVERALL PLAN: Decrease IV fluids. Advance diet. Monitor for ongoing stool culture returns. Continue with Flagyl. Zofran for nausea. Monitor for any post chemo sequela. Was able to convince the patient to remain in hospital today for ongoing monitoring. /[id number]/MODL
[2017-10-10] MEDS: Acetaminophen/HYDROcodone 325-10 MG Tab PO PRN (13:31)
[2017-10-10 15:54] VITALS: BP 117/70
[2017-10-10] MEDS: Cholecalciferol (Vitamin D3) 1,000 Unit Tab PO SCH (18:26)
[2017-10-10] MEDS: Potassium Chloride 20 MEQ Tab.ER PO SCH (18:27)
--- NOTE | 2017-10-12 09:14 | DISCH ---
FINAL DIAGNOSES: 1. Viral gastroenteritis. 2. Negative C. diff. 3. Dehydration, resolved. 4. Diverticulosis with no signs of diverticulitis. 5. Recent chemotherapy. BRIEF HISTORY: This patient was admitted by Israel Shankar. The patient did have ongoing chemotherapy due to his primary prostate CA with metastasis to the bone and liver. He had seen Israel Shankar at [facility] with concerns of diarrhea and ongoing abdominal pain. He stated he was out in the sun, fishing the prior day. He ate hamburger with his brother, it did not appear to be contaminated, so he woke up in the middle night with some abdominal pain with loose stools, frequent watery diarrhea. He is an oncology patient, sees Dr. Hicks. He became quite weak with some lightheadedness, so he was admitted for further workup to rule out any concerning infection. HOSPITAL COURSE: The patient's hospital course went well. He did receive IV fluids, received antiemetics. He quickly improved. His diet was advanced. He did desire to be discharged earlier than desired. However, he was improving. He did have a fever 101.7 the night before he was discharged. However, he had no more vomiting. His abdominal pain had resolved. He was becoming much euvolemic quickly. Cultures were still pending upon his discharge. Chest x-ray demonstrated no active cardiopulmonary disease. LABORATORY DATA: He did have white count of 24,000, hemoglobin 11.1, hematocrit 34. Electrolytes were monitored. Sodium 142, potassium 3.9, BUN was 14, creatinine 0.72. He was given Flagyl. He was taken off his doxycycline which he was on for an abscess to his back and his foot that was lanced. He had a BNP of 141. His vital signs were stable. He no longer had a temperature upon discharge. Blood pressure was 117/70, temperature was 98.3, heart rate was 85. He did call the on-call provider stated he desired to go home. He felt much better. He did have a flat plate upright, which showed mild gaseous distention of the stomach with numerous bowel loops, however, no obstruction. Again, he did have his dietary advanced. He is due to have chemotherapy today, 10/11/2017. DISPOSITION: The patient was discharged at 17:36 on 10/10/2017. He was given instructions on proper followup and understanding that if he does run a fever or he gets more abdominal pain or ill, he is to notify the clinic as soon as possible or the ED. /[id number]/MODL
== END 2017-10-10 18:44 | disposition home or self-care (01) | DRG 392 ==
LOC: KA.MS 11:56
PROVIDERS: ADMIT Physician Assistant; ATTEND Family Medicine
DX: K52.9 Noninfective gastroenteritis and colitis, unspecified (principal); C78.7 Secondary malignant neoplasm of liver and intrahepatic bile duct; C79.51 Secondary malignant neoplasm of bone; E86.0 Dehydration; C61 Malignant neoplasm of prostate; R19.7 Diarrhea, unspecified; R10.9 Unspecified abdominal pain; R06.02 Shortness of breath; K57.30 Diverticulosis of large intestine without perforation or abscess without bleeding; F17.210 Nicotine dependence, cigarettes, uncomplicated; Z86.718 Personal history of other venous thrombosis and embolism; Z79.899 Other long term (current) drug therapy; Z79.01 Long term (current) use of anticoagulants
CPT/HCPCS: 74021; 80053; 81001; 82553; 83880; 84484; 85025; 87045; 87046; 87070; 87205; 87324; 94640; A9270-GY; J1447; J7040; J7042

== ENCOUNTER 2018-08-22 18:05 | Emergency (ER) | payer MEDICAID ==
--- NOTE | 2018-08-22 19:12 | EDM.PDOC ---
ED HPI GENERAL MEDICAL PROBLEM - General Chief Complaint: Neuro Symptoms/Deficits Stated Complaint: SHAKY, S/P CHEMO Time Seen by Provider: 08/22/18 18:49 Source of Information: Reports: Patient, Significant Other History Limitations: Reports: No Limitations - History of Present Illness INITIAL COMMENTS - FREE TEXT/NARRATIVE: Patient presents with general weakness, fever and cough. The cough has been worsening over the last two weeks but the weakness and fever just this afternoon. He has prostate cancer with mets to bones. He is doing chemo and saw his oncologist this morning in [place]. He was shaking a little bit then but worse now and fever too. He also had an IV infusion for his bone strength this morning. He smokes and likely has COPD but not sure. His dyspnea and cough have never been this bad before. - Related Data Allergies Allergy/AdvReac Type Severity Reaction Status Date / Time No Known Drug Allergies Allergy Cannot Verified 08/22/18 18:28 Remember Home Meds: Home Meds Gabapentin [Neurontin] 900 mg PO BID@0800,1800 12/23/16 [History] Furosemide [Lasix] 60 mg PO DAILY 02/02/17 [History] Hydrocodone/Acetaminophen [Hydrocodon-Acetaminophn 10-325] 1 - 2 tab PO Q4H PRN 02/02/17 [History] Potassium Chloride [Klor-Con M20] 20 meq PO DAILY@1800 02/02/17 [History] Rivaroxaban [Xarelto] 20 mg PO DAILY@1800 02/02/17 [History] Mometasone/Formoterol [Dulera 200 MCG/5 MCG] 2 puff INH BID PRN 06/29/17 [ History] ALPRAZolam [Xanax] 0.25 mg PO Q8H PRN 10/09/17 [History] Albuterol [Ventolin HFA] 1 - 2 puff INH Q4H PRN 10/09/17 [History] Cholecalciferol (Vitamin D3) [Vitamin D3] 2,000 units PO DAILY@1800 10/09/17 [ History] Escitalopram [Lexapro] 20 mg PO DAILY 10/09/17 [History] Morphine Sulfate [Morphine Sulfate ER] 100 mg PO BID@0800,1800 10/09/17 [History ] buPROPion [buPROPion XL] 150 mg PO DAILY 10/09/17 [History] predniSONE [Prednisone] 10 mg PO DAILY 10/09/17 [History] Ca/D3/Mag Ox/Zinc/Microbiology Instructor/Chuckie/Bor [Cvs Calcium 600-D3 Plus Tablet] 1 tab PO BID [History] Cyclobenzaprine [Flexeril] 10 mg PO TID PRN 01/31/18 [History] Morphine Sulfate [Morphine Sulfate ER] 15 mg PO BID@0800,1800 01/31/18 [History] metOLazone [Zaroxolyn] 2.5 mg PO DAILY 01/31/18 [History] Sm Gentle Laxative Ec 5 mg PO BID 02/25/18 [History] Spironolactone [Aldactone] 25 mg PO DAILY 02/25/18 [History] Past Medical History HEENT History: Reports: Impaired Vision Cardiovascular History: Reports: Blood Clots/VTE/DVT Respiratory History: Reports: COPD Other Respiratory History: Every day smoker Gastrointestinal History: Reports: GERD Genitourinary History: Reports: Prostate Disorder Musculoskeletal History: Reports: Arthritis Other Musculoskeletal History: unsteady gait - due to tumor on spine Neurological History: Reports: None Other Neuro History: tumor on spine Psychiatric History: Reports: Depression Endocrine/Metabolic History: Reports: None Hematologic History: Reports: Blood Transfusion(s) Immunologic History: Reports: Immunosuppression Oncologic (Cancer) History: Reports: Bone, Prostate Dermatologic History: Reports: None - Infectious Disease History Infectious Disease History: Reports: Chicken Pox - Past Surgical History Head Surgeries/Procedures: Reports: None HEENT Surgical History: Reports: None Cardiovascular Surgical History: Reports: None Other Cardiovascular Surgeries/Procedures: port-a-cath L chest Respiratory Surgical History: Reports: None Other Respiratory Surgeries/Procedures: Tumor in lung GI Surgical History: Reports: Colonoscopy Male Surgical History: Reports: None Endocrine Surgical History: Reports: None Neurological Surgical History: Reports: None Musculoskeletal Surgical History: Reports: Knee Replacement, Other (See Below) Other Musculoskeletal Surgeries/Procedures:: to L knee, tumor in left knee Oncologic Surgical History: Reports: Bone Marrow Aspiration, Other (See Below) Other Oncologic Surgeries/Procedures: radiation to tumor onspine - done with series in Dec 2016 Social & Family History - Family History Family Medical History: Noncontributory HEENT: Reports: None Cardiac: Reports: Other (See Below) Respiratory: Reports: Interstitial Lung Disease GI: Reports: None : Reports: None OBGYN: Reports: None Musculoskeletal: Reports: None Neurological: Reports: None Psychiatric: Reports: None Endocrine/Metabolic: Reports: None Hematologic: Reports: None Immunologic: Reports: None Dermatologic: Reports: None Oncologic: Reports: Lung, Pancreatic - Tobacco Use Smoking Status *Q: Current Every Day Smoker - Caffeine Use Caffeine Use: Reports: Coffee ED ROS GENERAL - Review of Systems Review Of Systems: See Below Constitutional: Reports: Fever, Chills, Weakness HEENT: Reports: Other (no facial droop noted by SO). Denies: Hearing Loss, Vision Change Respiratory: Reports: Shortness of Breath, Cough Cardiovascular: Reports: Edema (sometimes gets in lungs and ankles but not bad now). Denies: Chest Pain, Syncope GI/Abdominal: Reports: Abdominal Pain (lower), Diarrhea (a little bit), Nausea. Denies: Constipation, Vomiting : Reports: Dysuria. Denies: Discharge Musculoskeletal: Reports: Back Pain Skin: Denies: Cyanosis, Mottled, Pallor, Rash Neurological: Denies: Confusion, Seizure (he was shaking so much his SO thought at first it was a seizure) Psychiatric: Denies: Agitation, Anxiety, Confusion ED EXAM, GENERAL - Physical Exam Exam: See Below Exam Limited By: No Limitations General Appearance: Alert, WD/WN, No Apparent Distress Eye Exam: Bilateral Eye: EOMI, Normal Inspection, PERRL Ears: Normal External Exam, Hearing Grossly Normal Nose: Normal Inspection, No Blood Throat/Mouth: Normal Inspection, Normal Lips, Normal Oropharynx, Normal Voice, No Airway Compromise, Other (no droop or assymetry) Head: Atraumatic, Normocephalic Neck: Normal Inspection, Supple, Non-Tender, Full Range of Motion Respiratory/Chest: Decreased Breath Sounds, Crackles, Wheezing, Other (no erythema at the port site, left upper chest). No: Stridor Cardiovascular: Normal Peripheral Pulses, Regular Rate, Rhythm, No Murmur GI/Abdominal: Normal Bowel Sounds, Soft, No Organomegaly, No Distention, Tender (slight RLQ) Extremities: Normal Inspection, Normal Range of Motion Neurological: Alert, CN II-XII Intact, No Motor/Sensory Deficits, Confused (He doesn't know the day or date, or who is President. He thinks he went fishing today, not to the doctor.), Slow to Respond, Other Psychiatric: Normal Mood, Flat Affect Skin Exam: Warm, Dry, Intact, No Rash, Jaundice (slight) Course - Vital Signs Last Recorded V/S: Last Vital Signs Temp 99.6 F 08/22/18 21:10 Pulse 88 08/22/18 21:10 Resp 18 08/22/18 21:10 BP 109/46 L 08/22/18 21:10 Pulse Ox 92 L 08/22/18 21:10 - Orders/Labs/Meds Orders: Active Orders 24 hr Category Date Time Status CULTURE BLOOD [BC] Stat Lab 08/22/18 18:50 Received CULTURE BLOOD [BC] Stat Lab 08/22/18 19:30 Received Morphine [MS Contin] Med 08/22/18 21:48 Active 115 mg PO DAILY NS + KCl 20mEq/L [Normal Saline with 20 mEq KCl] 1,000 Med 08/22/18 20:15 Active ml IV ASDIRECTED Potassium Bicarbonate [Klor-Con EF] Med 08/22/18 20:30 Active 25 meq PO DAILY Blood Culture x2 Reflex Set [OM.PC] Stat Oth 08/22/18 19:28 Ordered Medication Orders Potassium Chloride/Sodium Chloride (Normal Saline With 20 Meq Kcl) 1,000 mls @ 250 mls/hr IV ASDIRECTED LYNNE Last Admin: 08/22/18 20:45 Dose: 250 mls/hr Morphine Sulfate (Ms Contin) 115 mg PO DAILY LYNNE Potassium Bicarbonate (Klor-Con Ef) 25 meq PO DAILY LYNNE Last Admin: 08/22/18 20:46 Dose: 25 meq Labs: Laboratory Tests 08/22/18 08/22/18 08/22/18 Range/Units 18:50 18:50 18:50 WBC 17.05 H D (5.00-10.00) 10^3/uL RBC 3.87 L (4.50-6.00) 10^6/uL Hgb 11.5 L (13.0-17.0) g/dL Hct 34.7 L (40.0-52.0) % MCV 89.7 (82.0-92.0) fL MCH 29.7 (27.0-31.0) pg MCHC 33.1 (32.0-36.0) g/dL RDW 16.4 H (11.5-14.5) % Plt Count 340 (150-400) 10^3/uL MPV 8.0 (7.4-10.4) fL Immature Gran % (Auto) 0.3 (0.0-5.0) % Neut % (Auto) 87.2 H (50.0-70.0) % Lymph % (Auto) 5.5 L (20.0-40.0) % [place] % (Auto) 6.3 (2.0-8.0) % Eos % (Auto) 0.5 L (1.0-3.0) % Baso % (Auto) 0.2 (0.0-1.0) % Immature Gran # (Auto) 0.05 (0.00-0.50) 10^3/uL Neut # (Auto) 14.87 H (2.50-7.00) 10^3/uL Lymph # (Auto) 0.94 L (1.00-4.00) 10^3/uL [place] # (Auto) 1.08 H (0.10-0.80) 10^3/uL Eos # (Auto) 0.08 L (0.10-0.30) 10^3/uL Baso # (Auto) 0.03 (0.00-0.10) 10^3/uL Sodium 134 L (136-145) mmol/L Potassium 2.9 L (3.3-5.3) mmol/L Chloride 93 L (98-115) mmol/L Carbon Dioxide 32.3 H (21.0-32.0) mmol/L Anion Gap 11.6 (5-15) mmol/L BUN 27 H (6-25) mg/dL Creatinine 1.35 H (0.51-1.17) mg/dL Est Cr Clr Drug Dosing 64.30 mL/min Estimated GFR (MDRD) 54 mL/min Glucose 108 H (75 - 99) mg/dL Calcium 8.7 (8.7-10.3) mg/dL Total Bilirubin 0.4 (0.2-1.0) mg/dL AST 19 (15-37) U/L ALT 14 (12-78) U/L Alkaline Phosphatase 104 (46-116) IU/L C-Reactive Protein 11.7 H (0.0-0.9) mg/dL Total Protein 7.9 (6.4-8.2) g/dL Albumin 3.06 (3.00-4.80) g/dL Specimen Type Urine Color (YELLOW) Urine Appearance (CLEAR) Urine pH (5.0-9.0) Ur Specific [place] (1.005-1.030) Urine Protein (NEGATIVE) mg/dL Urine Glucose (UA) (NEGATIVE) mg/dL Urine Ketones (NEGATIVE) mg/dL Urine Occult Blood (NEGATIVE) Urine Nitrite (NEGATIVE) Urine Bilirubin (NEGATIVE) Urine Urobilinogen (0.2-1.0) E.U./dL Ur Leukocyte Esterase (NEGATIVE) Urine RBC (0-5) /HPF Urine WBC (0-5) /HPF Ur Epithelial Cells /LPF Urine Bacteria (NONE TO FEW) /HPF 08/22/18 Range/Units 19:10 WBC (5.00-10.00) 10^3/uL RBC (4.50-6.00) 10^6/uL Hgb (13.0-17.0) g/dL Hct (40.0-52.0) % MCV (82.0-92.0) fL MCH (27.0-31.0) pg MCHC (32.0-36.0) g/dL RDW (11.5-14.5) % Plt Count (150-400) 10^3/uL MPV (7.4-10.4) fL Immature Gran % (Auto) (0.0-5.0) % Neut % (Auto) (50.0-70.0) % Lymph % (Auto) (20.0-40.0) % [place] % (Auto) (2.0-8.0) % Eos % (Auto) (1.0-3.0) % Baso % (Auto) (0.0-1.0) % Immature Gran # (Auto) (0.00-0.50) 10^3/uL Neut # (Auto) (2.50-7.00) 10^3/uL Lymph # (Auto) (1.00-4.00) 10^3/uL [place] # (Auto) (0.10-0.80) 10^3/uL Eos # (Auto) (0.10-0.30) 10^3/uL Baso # (Auto) (0.00-0.10) 10^3/uL Sodium (136-145) mmol/L Potassium (3.3-5.3) mmol/L Chloride (98-115) mmol/L Carbon Dioxide (21.0-32.0) mmol/L Anion Gap (5-15) mmol/L BUN (6-25) mg/dL Creatinine (0.51-1.17) mg/dL Est Cr Clr Drug Dosing mL/min Estimated GFR (MDRD) mL/min Glucose (75 - 99) mg/dL Calcium (8.7-10.3) mg/dL Total Bilirubin (0.2-1.0) mg/dL AST (15-37) U/L ALT (12-78) U/L Alkaline Phosphatase (46-116) IU/L C-Reactive Protein (0.0-0.9) mg/dL Total Protein (6.4-8.2) g/dL Albumin (3.00-4.80) g/dL Specimen Type Urincc Urine Color Yellow (YELLOW) Urine Appearance Clear (CLEAR) Urine pH 7.0 (5.0-9.0) Ur Specific [place] 1.015 (1.005-1.030) Urine Protein Negative (NEGATIVE) mg/dL Urine Glucose (UA) Negative (NEGATIVE) mg/dL Urine Ketones Negative (NEGATIVE) mg/dL Urine Occult Blood Negative (NEGATIVE) Urine Nitrite Negative (NEGATIVE) Urine Bilirubin Negative (NEGATIVE) Urine Urobilinogen 0.2 (0.2-1.0) E.U./dL Ur Leukocyte Esterase Negative (NEGATIVE) Urine RBC 0-5 (0-5) /HPF Urine WBC 0-5 (0-5) /HPF Ur Epithelial Cells Few /LPF Urine Bacteria Not seen (NONE TO FEW) /HPF Meds: Medications Generic Name Dose Route Start Last Admin Trade Name Freq PRN Reason Stop Dose Admin Potassium Chloride/Sodium Chloride 1,000 mls @ 250 mls/hr 08/22/18 20:15 08/05 20:45 Normal Saline With 20 Meq Kcl IV 250 mls/hr ASDIRECTED LYNNE Administration Morphine Sulfate 115 mg 08/22/18 21:48 Ms Contin PO DAILY LYNNE Potassium Bicarbonate 25 meq 08/22/18 20:30 08/22/18 20:46 Klor-Con Ef PO 25 meq DAILY LYNNE Administration Discontinued Medications Generic Name Dose Route Start Last Admin Trade Name Cassandra PRN Reason Stop Dose Admin Acetaminophen 1,000 mg 08/22/18 19:36 08/22/18 19:36 Tylenol Extra Strength PO 08/22/18 19:37 1,000 mg ONETIME ONE Administration Acetaminophen Confirm 08/22/18 19:36 08/22/18 19:50 Tylenol Extra Strength Administered 08/22/18 19:37 Not Given Dose 1,000 mg .ROUTE .STK-MED ONE Cefepime HCl 2 gm 08/22/18 20:38 08/22/18 21:03 Maxipime IVPUSH 08/22/18 20:39 2 gm ONETIME ONE Administration Ampicillin Sodium 2 gm/ Sodium 50 mls @ 100 mls/hr 08/22/18 20:38 Chloride IV 08/22/18 21:07 ONETIME ONE Vancomycin HCl 1.5 gm/ Sodium 250 mls @ 167 mls/hr 08/22/18 20:41 Chloride IV 08/22/18 22:10 ONETIME ONE - Re-Assessments/Exams Free Text/Narrative Re-Assessment/Exam: 08/22/18 20:45 WBC 17, ANC 15, CRP 11.7, Potassium 2.9. Head CT shows no acute changes, CXR no pneumonia but metastatic bone disease evident as prior. Discussed findings with patient and advised transfer to [place]. Pt reluctant but willing. I discussed case with Dr. Abarca, hospitalist, who accepted for transfer and instructed us to start Cefepime, Vanco and Ampicillin to treat possible encephalitis/meningitis. We need to wait for bed placement and they will call back. Patient stable with KCl running in IV and gave oral potassium as well. Will start the Cefepime first. 08/23/18 00:18 Patient stable at time of transfer. Departure - Departure Time of Disposition: 20:59 Disposition: DC/Tfer to Acute Hospital 02 Condition: Fair Clinical Impression: Hypoxemia requiring supplemental oxygen, Neutrophilic leukocytosis, Confusion with non-focal neuro exam, Hypokalemia, Prostate cancer metastatic to bone, Fever and chills - Discharge Information Referrals: Gregor Castelan, [employer] [Primary Care Provider] - Forms: ED Department Discharge, ED Department Discharge - My Orders Last 24 Hours: My Active Orders 08/22/18 18:50 CULTURE BLOOD [BC] Stat 08/22/18 19:28 Blood Culture x2 Reflex Set [OM.PC] Stat 08/22/18 19:30 CULTURE BLOOD [BC] Stat 08/22/18 20:15 NS + KCl 20mEq/L [Normal Saline with 20 mEq KCl] 1,000 ml IV ASDIRECTED 08/22/18 20:30 Potassium Bicarbonate [Klor-Con EF] 25 meq PO DAILY 08/22/18 21:48 Morphine [MS Contin] 115 mg PO DAILY - Assessment/Plan Last 24 Hours: My Active Orders 08/22/18 18:50 CULTURE BLOOD [BC] Stat 08/22/18 19:28 Blood Culture x2 Reflex Set [OM.PC] Stat 08/22/18 19:30 CULTURE BLOOD [BC] Stat 08/22/18 20:15 NS + KCl 20mEq/L [Normal Saline with 20 mEq KCl] 1,000 ml IV ASDIRECTED 08/22/18 20:30 Potassium Bicarbonate [Klor-Con EF] 25 meq PO DAILY 08/22/18 21:48 Morphine [MS Contin] 115 mg PO DAILY
[2018-08-22 19:22] LABS: ANION GAP 11.6 mmol/L (5-15)
[2018-08-22] MEDS ORDERED: Acetaminophen 500 MG Tab ONE (19:36)
[2018-08-22] MEDS ORDERED: Acetaminophen 500 MG Tab PO ONE (19:36)
--- NOTE | 2018-08-22 20:12 | CT ---
[id number] CT/CT Head WO IV EXAM: CT Head WO IV CLINICAL DATA: CHANGE IN MENTAL STATUS COMPARISON: NO PREVIOUS SIMILAR EXAM IS AVAILABLE FOR COMPARISON. FINDINGS: There is no mass or mass effect. There is no hemorrhage or hydrocephalus. There are no extra-axial fluid collections. There are no sites of abnormal attenuation. IMPRESSION: NO PLAIN CT EVIDENCE OF ACUTE INTRACRANIAL PROCESS. Quinton Ralph MD 08/22/182009 Thank you for allowing us to participate in the care of your patient.
--- NOTE | 2018-08-22 20:13 | CR ---
[id number] RAD/RAD Chest PA And Lateral EXAM: RAD Chest PA And Lateral CLINICAL DATA: COUGH AND FEVER COMPARISON: CORRELATION IS MADE WITH THE EXAM OF FEBRUARY 02, 2017. FINDINGS: Diffuse osteoblastic metastatic bone disease is seen. A chest port is identified. The lungs are clear. The cardiomediastinal contour is stable. IMPRESSION: NO PNEUMONIA. DIFFUSE METASTATIC BONE DISEASE. Quinton Ralph MD 08/22/182011 Thank you for allowing us to participate in the care of your patient.
[2018-08-22] MEDS ORDERED: NS + KCl 20mEq/L 1,000 ML IV SCH (20:15)
[2018-08-22] MEDS ORDERED: Potassium Bicarbonate 25 MEQ Tab.EFF PO SCH (20:30)
[2018-08-22] MEDS ORDERED: Cefepime 2 GM Vial IVPUSH ONE (20:38)
[2018-08-22] MEDS ORDERED: Ampicillin 2 GM in Sodium Chloride 0.9% 50 ML IV ONE (20:38)
[2018-08-22] MEDS ORDERED: Morphine 15 MG Tab.ER PO ONE (21:00)
[2018-08-22 21:20] VITALS: BP 109/46
[2018-08-22] MEDS ORDERED: Morphine 15 MG Tab.ER PO SCH (21:48)
== END 2018-08-22 22:05 ==
LOC: KA.ED 18:05
DX: D72.828 Other elevated white blood cell count (principal); R09.02 Hypoxemia; R41.0 Disorientation, unspecified; C61 Malignant neoplasm of prostate; C79.51 Secondary malignant neoplasm of bone; Z99.81 Dependence on supplemental oxygen; K21.9 Gastro-esophageal reflux disease without esophagitis; Z79.899 Other long term (current) drug therapy
CPT/HCPCS: 36415; 70450; 71046; 80053; 81001; 85025; 86140; 87040; 96361; 96374; 96375; 99285-25; A9270-GY; J0290; J0692; J3370; J3480; J7050

== ENCOUNTER 2018-09-14 07:19 | Inpatient (IN) | payer MEDICARE, MEDICAID ==
--- NOTE | 2018-09-14 07:44 | EDM.PDOC ---
ED HPI GENERAL MEDICAL PROBLEM - General Chief Complaint: Neurological Problem Stated Complaint: FALL IN BATHROOM Time Seen by Provider: 09/14/18 07:26 Source of Information: Reports: Patient History Limitations: Reports: Altered Mental Status - History of Present Illness INITIAL COMMENTS - FREE TEXT/NARRATIVE: Patient is a 58-year-old gentleman who presents to the emergency department via EMS secondary to altered mental status. Per patient's girlfriend, she states that over the past 2-3 days he has become gradually weaker, unable to ambulate, and has increasing confusion. Patient has metastatic cancer and received chemotherapy yesterday and is currently on morphine for discomfort. Girlfriend states that prescriptions are packaged for daily consumption and no suspicion for not taking medication as directed. Patient appears lethargic but does respond and denies any chest pain, nausea or headache. Per EMS, patient was found have mild hypoxia via transport, and O2 was administered via cannula. Patient was seen here in the emergency department on 08/22/2018. Patient was transferred to [facility] secondary to leukocytosis and infectious process in a cancer immunosuppressed patient. Onset: Gradual Duration: Day(s): Severity: Moderate Improves with: Reports: None Worsens with: Reports: None Associated Symptoms: Reports: Confusion - Related Data Allergies Allergy/AdvReac Type Severity Reaction Status Date / Time No Known Drug Allergies Allergy Cannot Verified 09/13/18 13:36 Remember Home Meds: Home Meds Gabapentin [Neurontin] 900 mg PO BID@0800,1800 12/23/16 [History] Furosemide [Lasix] 60 mg PO DAILY 02/02/17 [History] Potassium Chloride [Klor-Con M20] 20 meq PO DAILY@1800 02/02/17 [History] Rivaroxaban [Xarelto] 20 mg PO DAILY@1800 02/02/17 [History] ALPRAZolam [Xanax] 0.25 mg PO Q8H PRN 10/09/17 [History] Albuterol [Ventolin HFA] 1 - 2 puff INH Q4H PRN 10/09/17 [History] Cholecalciferol (Vitamin D3) [Vitamin D3] 2,000 units PO DAILY@1800 10/09/17 [ History] Escitalopram [Lexapro] 20 mg PO DAILY 10/09/17 [History] Morphine Sulfate [Morphine Sulfate ER] 100 mg PO BID@0800,1800 10/09/17 [History ] buPROPion [buPROPion XL] 150 mg PO DAILY 10/09/17 [History] predniSONE [Prednisone] 10 mg PO DAILY 10/09/17 [History] Ca/D3/Mag Ox/Zinc/Clinical Supervisor/Chuckie/Bor [[facility] Calcium 600-D3 Plus Tablet] 1 tab PO BID [History] Cyclobenzaprine [Flexeril] 10 mg PO TID PRN 01/31/18 [History] metOLazone [Zaroxolyn] 2.5 mg PO DAILY 01/31/18 [History] Sm Gentle Laxative Ec 5 mg PO BID 02/25/18 [History] Spironolactone [Aldactone] 25 mg PO DAILY 02/25/18 [History] Abiraterone Acetate 1,000 mg PO DAILY 09/14/18 [History] Bumetanide 1 mg PO DAILY 09/14/18 [History] Fluticasone/Vilanterol [Breo Ellipta 200-25 Mcg INH] 1 - 2 puff INH DAILY [History] Potassium Chloride [Klor-Con M10] 10 meq PO DAILY 09/14/18 [History] Past Medical History HEENT History: Reports: Impaired Vision Cardiovascular History: Reports: Blood Clots/VTE/DVT Respiratory History: Reports: COPD Other Respiratory History: Every day smoker Gastrointestinal History: Reports: GERD Genitourinary History: Reports: Prostate Disorder Other Genitourinary History: prostrate CA with mets to bone Musculoskeletal History: Reports: Arthritis Other Musculoskeletal History: unsteady gait - due to tumor on spine Neurological History: Reports: None Other Neuro History: tumor on spine Psychiatric History: Reports: Depression Endocrine/Metabolic History: Reports: None Hematologic History: Reports: Blood Transfusion(s) Immunologic History: Reports: Immunosuppression Oncologic (Cancer) History: Reports: Bone, Prostate Dermatologic History: Reports: None - Infectious Disease History Infectious Disease History: Reports: Chicken Pox - Past Surgical History Head Surgeries/Procedures: Reports: None HEENT Surgical History: Reports: None Cardiovascular Surgical History: Reports: None Other Cardiovascular Surgeries/Procedures: port-a-cath L chest Respiratory Surgical History: Reports: None Other Respiratory Surgeries/Procedures: Tumor in lung GI Surgical History: Reports: Colonoscopy Male Surgical History: Reports: None Endocrine Surgical History: Reports: None Neurological Surgical History: Reports: None Musculoskeletal Surgical History: Reports: Knee Replacement, Other (See Below) Other Musculoskeletal Surgeries/Procedures:: to L knee, tumor in left knee Oncologic Surgical History: Reports: Bone Marrow Aspiration, Other (See Below) Other Oncologic Surgeries/Procedures: radiation to tumor onspine - done with series in Dec 2016 Social & Family History - Family History Family Medical History: Noncontributory HEENT: Reports: None Cardiac: Reports: Other (See Below) Respiratory: Reports: Interstitial Lung Disease GI: Reports: None : Reports: None OBGYN: Reports: None Musculoskeletal: Reports: None Neurological: Reports: None Psychiatric: Reports: None Endocrine/Metabolic: Reports: None Hematologic: Reports: None Immunologic: Reports: None Dermatologic: Reports: None Oncologic: Reports: Lung, Pancreatic - Caffeine Use Caffeine Use: Reports: Coffee ED ROS GENERAL - Review of Systems Review Of Systems: ROS reveals no pertinent complaints other than HPI. Constitutional: Reports: No Symptoms HEENT: Reports: No Symptoms Respiratory: Reports: Shortness of Breath Cardiovascular: Reports: No Symptoms Endocrine: Reports: No Symptoms GI/Abdominal: Reports: No Symptoms : Reports: No Symptoms Musculoskeletal: Reports: No Symptoms Skin: Reports: No Symptoms Neurological: Reports: Confusion, Weakness Psychiatric: Reports: No Symptoms Hematologic/Lymphatic: Reports: No Symptoms Immunologic: Reports: No Symptoms ED EXAM, NEURO - Physical Exam Exam: See Below Exam Limited By: Altered Mental Status General Appearance: WD/WN, No Apparent Distress, Lethargic Eye Exam: Bilateral Eye: Normal Inspection Ears: Normal External Exam, Normal Canal, Normal TMs Nose: Normal Inspection, Normal Mucosa, No Blood Throat/Mouth: Normal Inspection, Normal Oropharynx, No Airway Compromise Head Exam: Atraumatic, Normocephalic Neck: Normal Inspection, Supple, Non-Tender, Full Range of Motion Respiratory/Chest: No Respiratory Distress, Rales. No: Wheezing Cardiovascular: Regular Rate, Rhythm, No Murmur GI/Abdominal: Normal Bowel Sounds, Soft, Non-Tender Neurological: Other (Lethargic and limited response to basic questions / 7/15 gcs) Back Exam: Paraspinal Tenderness (Of chronic nature). No: CVA Tenderness (L), CVA Tenderness (R) Extremities: Normal Inspection, No Pedal Edema Psychiatric: Normal Affect, Normal Mood Skin Exam: Warm, Dry, Intact, Normal Color, No Rash EKG INTERPRETATION EKG Date: 09/14/18 Time: 07:40 Rhythm: NSR Rate (Beats/Min): 91 [place]: Normal P-Wave: Present QRS: RBBB QT: Prolonged Comparison: Change From Previous EKG Course - Vital Signs Last Recorded V/S: Last Vital Signs Temp 99.5 F 09/14/18 07:25 Pulse 94 09/14/18 07:25 Resp 29 H 09/14/18 07:25 BP 118/54 L 09/14/18 07:25 Pulse Ox 68 L 09/14/18 07:25 - Orders/Labs/Meds Orders: Active Orders 24 hr Category Date Time Status EKG Documentation Completion [RC] ASDIRECTED Care 09/14/18 07:29 Ordered Peripheral IV Care [RC] . DIRECTED Care 09/14/18 07:29 Active CULTURE BLOOD [BC] Stat Lab 09/14/18 08:34 Ordered CULTURE BLOOD [BC] Stat Lab 09/14/18 08:34 Ordered Sodium Chloride 0.9% @ 999 MLS/HR (1000ml) Med 09/14/18 09:19 Ordered Sodium Chloride 0.9% [Normal Saline] 1,000 ml IV .BOLUS Sodium Chloride 0.9% [Saline Flush] Med 09/14/18 07:29 Ordered 10 ml FLUSH Q8HR PRN cefTRIAXone [Rocephin] Med 09/14/18 09:19 Once 1 gm IVPUSH ONETIME ONE Blood Culture x2 Reflex Set [OM.PC] Stat Oth 09/14/18 08:34 Ordered Peripheral IV Insertion Adult [OM.PC] Routine Oth 09/14/18 07:29 Ordered EKG 12 Lead [EK] Routine Ther 09/14/18 07:27 Ordered Medication Orders Ceftriaxone Sodium (Rocephin) 1 gm IVPUSH ONETIME ONE Stop: 09/14/18 09:20 Sodium Chloride (Normal Saline) 1,000 mls @ 999 mls/hr IV .BOLUS ONE Stop: 09/14/18 10:19 Sodium Chloride (Saline Flush) 10 ml FLUSH Q8HR PRN PRN Reason: keep vein open Labs: Laboratory Tests 09/14/18 09/14/18 09/14/18 Range/Units 08:00 08:00 08:00 WBC 16.50 H (5.00-10.00) 10^3/uL RBC 3.56 L (4.50-6.00) 10^6/uL Hgb 10.3 L (13.0-17.0) g/dL Hct 31.6 L (40.0-52.0) % MCV 88.8 (82.0-92.0) fL MCH 28.9 (27.0-31.0) pg MCHC 32.6 (32.0-36.0) g/dL RDW 16.2 H (11.5-14.5) % Plt Count 311 (150-400) 10^3/uL MPV 8.2 (7.4-10.4) fL Immature Gran % (Auto) 0.3 (0.0-5.0) % Neut % (Auto) 84.9 H (50.0-70.0) % Lymph % (Auto) 4.8 L (20.0-40.0) % [place] % (Auto) 6.4 (2.0-8.0) % Eos % (Auto) 3.3 H (1.0-3.0) % Baso % (Auto) 0.3 (0.0-1.0) % Immature Gran # (Auto) 0.05 (0.00-0.50) 10^3/uL Neut # (Auto) 14.00 H (2.50-7.00) 10^3/uL Lymph # (Auto) 0.80 L (1.00-4.00) 10^3/uL [place] # (Auto) 1.05 H (0.10-0.80) 10^3/uL Eos # (Auto) 0.55 H (0.10-0.30) 10^3/uL Baso # (Auto) 0.05 (0.00-0.10) 10^3/uL PT 13.2 H (8.9-11.4) SEC INR 1.3 H (0.9-1.1) APTT 63.0 H* (23.1-31.3) SEC Sodium 133 L (136-145) mmol/L Potassium 3.1 L (3.3-5.3) mmol/L Chloride 94 L (98-115) mmol/L Carbon Dioxide 28.9 (21.0-32.0) mmol/L Anion Gap 13.2 (5-15) mmol/L BUN 40 H (6-25) mg/dL Creatinine 1.70 H (0.51-1.17) mg/dL Est Cr Clr Drug Dosing TNP Estimated GFR (MDRD) 42 mL/min Glucose 121 H (75 - 99) mg/dL Calcium 8.8 (8.7-10.3) mg/dL Magnesium 1.6 L (1.8-2.4) mg/dL Total Bilirubin 0.7 (0.2-1.0) mg/dL AST 25 (15-37) U/L ALT 22 (12-78) U/L Alkaline Phosphatase 138 H (46-116) IU/L Troponin I 0.06 (0.00-0.070) ng/mL B-Natriuretic Peptide 317 H (0-100) pg/mL Total Protein 7.5 (6.4-8.2) g/dL Albumin 2.61 L (3.00-4.80) g/dL Meds: Medications Generic Name Dose Route Start Last Admin Trade Name Freq PRN Reason Stop Dose Admin Ceftriaxone Sodium 1 gm 09/14/18 09:19 Rocephin IVPUSH 09/14/18 09:20 ONETIME ONE Sodium Chloride 1,000 mls @ 999 mls/hr 09/14/18 09:19 Normal Saline IV 09/14/18 10:19 .BOLUS ONE Sodium Chloride 10 ml 09/14/18 07:29 Saline Flush FLUSH Q8HR PRN keep vein open - Radiology Interpretation Free Text/Narrative:: CT head without contrast shows no acute intracranial process. Chest shows bilateral basilar infiltrates suspicious for pneumonia. - Re-Assessments/Exams Free Text/Narrative Re-Assessment/Exam: 09/14/18 09:31 Patient afebrile, vital signs stable, currently on nasal cannula O2 with a sat of 94%. Patient resting comfortably. 1 g IV Rocephin and 1 L normal saline given. Discussed case with Gregor Castelan from [facility]. Patient will be admitted and followed to their service. Departure - Departure Time of Disposition: 09:33 Disposition: Admitted As Inpatient 67 Condition: Fair Clinical Impression: Pneumonia Qualifiers: Pneumonia type: due to unspecified organism Laterality: bilateral Lung location : lower lobe of lung Qualified Code(s): J18.1 - Lobar pneumonia, unspecified organism - Discharge Information Forms: ED Department Discharge - My Orders Last 24 Hours: My Active Orders 09/14/18 07:27 EKG 12 Lead [EK] Routine 09/14/18 07:29 EKG Documentation Completion [RC] ASDIRECTED Peripheral IV Care [RC] . DIRECTED Sodium Chloride 0.9% [Saline Flush] 10 ml FLUSH Q8HR PRN Peripheral IV Insertion Adult [OM.PC] Routine 09/14/18 08:34 CULTURE BLOOD [BC] Stat CULTURE BLOOD [BC] Stat Blood Culture x2 Reflex Set [OM.PC] Stat 09/14/18 09:19 Sodium Chloride 0.9% @ 999 MLS/HR (1000ml) Sodium Chloride 0.9% [Normal Saline] 1,000 ml IV .BOLUS cefTRIAXone [Rocephin] 1 gm IVPUSH ONETIME ONE - Assessment/Plan Last 24 Hours: My Active Orders 09/14/18 07:27 EKG 12 Lead [EK] Routine 09/14/18 07:29 EKG Documentation Completion [RC] ASDIRECTED Peripheral IV Care [RC] . DIRECTED Sodium Chloride 0.9% [Saline Flush] 10 ml FLUSH Q8HR PRN Peripheral IV Insertion Adult [OM.PC] Routine 09/14/18 08:34 CULTURE BLOOD [BC] Stat CULTURE BLOOD [BC] Stat Blood Culture x2 Reflex Set [OM.PC] Stat 09/14/18 09:19 Sodium Chloride 0.9% @ 999 MLS/HR (1000ml) Sodium Chloride 0.9% [Normal Saline] 1,000 ml IV .BOLUS cefTRIAXone [Rocephin] 1 gm IVPUSH ONETIME ONE Assessment:: Pneumonia Plan: Admit
--- NOTE | 2018-09-14 08:15 | CR ---
[id number] RAD/RAD Chest PA or AP 1V EXAM: RAD Chest PA or AP 1V INDICATION: ALTERED MENTAL STATUS. COMPARISON: August 22, 2018. DISCUSSION: Cardiomediastinal silhouette is unchanged in size and contour compared to the prior examination. Small and subtle bibasal parenchymal opacities not seen previously. Findings were not evident on prior examination. Findings are nonspecific. Differential diagnosis includes sequela of pneumonia, aspiration, or subsegmental atelectasis. IMPRESSION: As above. Gustavo Rodrigez MD 09/14/18 0814 Thank you for allowing us to participate in the care of your patient.
--- NOTE | 2018-09-14 08:17 | CT ---
[id number] CT/CT Head WO IV EXAM: CT Head WO IV CLINICAL DATA: ALTERED MENTAL STATUS. COMPARISON STUDY: August 22, 2018. FINDINGS: Within limitations of patient motion artifact, no intracranial hemorrhage, extra-axial fluid collection, mass, or acute ischemia. No hydrocephalus. Mild paranasal sinusitis. Mastoid air cells and middle ear cavities are clear. IMPRESSION: No acute intracranial findings. Gustavo Rodrigez MD 09/14/18 0816 Thank you for allowing us to participate in the care of your patient.
[2018-09-14 08:42] LABS: ANION GAP 13.2 mmol/L (5-15); CHLORIDE,CL 94 mmol/L (98-115); SODIUM,NA 133 mmol/L (136-145)
[2018-09-14] MEDS ORDERED: Sodium Chloride 0.9% 1,000 ML IV ONE (09:19)
[2018-09-14] MEDS ORDERED: cefTRIAXone 1 GM Vial IVPUSH ONE (09:19)
--- NOTE | 2018-09-14 10:49 | PCM.HP ---
H&P History of Present Illness - General Date of Service: 09/14/18 Admit Problem/Dx: Admission Diagnosis/Problem Admission Diagnosis/Problem Pneumonia Source of Information: Family, Old Records, Provider, RN. No: Patient History Limitations: Reports: Altered Mental Status - Related Data Allergies/Adverse Reactions: Allergies Allergy/AdvReac Type Severity Reaction Status Date / Time No Known Drug Allergies Allergy Cannot Verified 09/13/18 13:36 Remember Home Medications: Home Meds Gabapentin [Neurontin] 900 mg PO BID@0800,1800 12/23/16 [History] Furosemide [Lasix] 60 mg PO DAILY 02/02/17 [History] Rivaroxaban [Xarelto] 20 mg PO DAILY@1800 02/02/17 [History] ALPRAZolam [Xanax] 0.25 mg PO Q8H PRN 10/09/17 [History] Albuterol [Ventolin HFA] 1 - 2 puff INH Q4H PRN 10/09/17 [History] Cholecalciferol (Vitamin D3) [Vitamin D3] 2,000 units PO DAILY@1800 10/09/17 [ History] Escitalopram [Lexapro] 20 mg PO DAILY 10/09/17 [History] Morphine Sulfate [Morphine Sulfate ER] 100 mg PO BID@0800,1800 10/09/17 [History ] buPROPion [buPROPion XL] 150 mg PO DAILY 10/09/17 [History] predniSONE [Prednisone] 10 mg PO DAILY 10/09/17 [History] Abiraterone Acetate 1,000 mg PO DAILY 09/14/18 [History] Albuterol/Ipratropium [DuoNeb 3.0-0.5 MG/3 ML] 1 inhalation INH QID 09/14/18 [ History] Bisacodyl [Dulcolax] 1 - 2 tab PO DAILY 09/14/18 [History] Bumetanide 1 mg PO DAILY 09/14/18 [History] Fluticasone Propionate [Flonase] 1 spray NASBOTH BID 09/14/18 [History] Fluticasone/Vilanterol [Breo Ellipta 200-25 Mcg INH] 1 puff INH DAILY 09/14/18 [ History] Hydrocodone/Acetaminophen [Hydrocodon-Acetaminophn 10-325] 1 - 2 tab PO Q4H PRN 09/14/18 [History] Modafinil [Provigil] 1 tab PO DAILY 09/14/18 [History] Potassium Chloride [Klor-Con M10] 20 meq PO DAILY 09/14/18 [History] Temazepam [Restoril] 15 mg PO BEDTIME 09/14/18 [History] Past Medical History HEENT History: Reports: Impaired Vision Cardiovascular History: Reports: Blood Clots/VTE/DVT Respiratory History: Reports: COPD Other Respiratory History: Every day smoker Gastrointestinal History: Reports: GERD Genitourinary History: Reports: Prostate Disorder Other Genitourinary History: prostrate CA with mets to bone Musculoskeletal History: Reports: Arthritis Other Musculoskeletal History: unsteady gait - due to tumor on spine Neurological History: Reports: None Other Neuro History: tumor on spine Psychiatric History: Reports: Depression Endocrine/Metabolic History: Reports: None Hematologic History: Reports: Blood Transfusion(s) Immunologic History: Reports: Immunosuppression Oncologic (Cancer) History: Reports: Bone, Prostate Dermatologic History: Reports: None - Infectious Disease History Infectious Disease History: Reports: Chicken Pox - Past Surgical History Head Surgeries/Procedures: Reports: None HEENT Surgical History: Reports: None Cardiovascular Surgical History: Reports: None Other Cardiovascular Surgeries/Procedures: port-a-cath L chest Respiratory Surgical History: Reports: None Other Respiratory Surgeries/Procedures: Tumor in lung GI Surgical History: Reports: Colonoscopy Male Surgical History: Reports: None Endocrine Surgical History: Reports: None Neurological Surgical History: Reports: None Musculoskeletal Surgical History: Reports: Knee Replacement, Other (See Below) Other Musculoskeletal Surgeries/Procedures:: to L knee, tumor in left knee Oncologic Surgical History: Reports: Bone Marrow Aspiration, Other (See Below) Other Oncologic Surgeries/Procedures: radiation to tumor onspine - done with series in Dec 2016 Social & Family History - Family History Family Medical History: Noncontributory HEENT: Reports: None Cardiac: Reports: Other (See Below) Respiratory: Reports: Interstitial Lung Disease GI: Reports: None : Reports: None OBGYN: Reports: None Musculoskeletal: Reports: None Neurological: Reports: None Psychiatric: Reports: None Endocrine/Metabolic: Reports: None Hematologic: Reports: None Immunologic: Reports: None Dermatologic: Reports: None Oncologic: Reports: Lung, Pancreatic - Tobacco Use Smoking Status *Q: Current Every Day Smoker Years of Tobacco use: 42 Packs/Tins Daily: 1.5 - Caffeine Use Caffeine Use: Reports: Coffee - Recreational Drug Use Recreational Drug Use: No H&P Review of Systems - Review of Systems: Review Of Systems: See Below (patient obtunded only responds to verbal commands , will open eyes spontanesly however appears excessively drowsy sedated) Exam - Exam Exam: See Below - Vital Signs Vital Signs: Last Vital Signs Temp 99.5 F 09/14/18 07:25 Pulse 94 09/14/18 09:30 Resp 30 H 09/14/18 09:30 BP 124/63 09/14/18 09:30 Pulse Ox 94 L 09/14/18 09:30 Weight: 231 lb - Exam Quality Assessment: Supplemental Oxygen General: Mild Distress, Sedated, Other (verbal commands, will open eyes spontanesly however appears excessively drowsy sedated). No: Alert HEENT: Hearing Intact, Other (dry mucous membranes). No: Mucosa Moist & [place] Lungs: Decreased Breath Sounds (severely decreased breath sounds with dullness left posterior, anterior right lung kim course was slight rhonchus), Other Cardiovascular: Regular Rate, Regular Rhythm GI/Abdominal Exam: Soft, Other (decrease BS). No: Distended (Male) Exam: Deferred Rectal (Males) Exam: Deferred Peripheral Pulses: 2+: Radial (L), Radial (R) Skin: Dry (skin hot, dry), Other (thickened fingernails) Neurological: Sensation Intact, Babinski. No: Normal Speech, Reflexes Unequal Neuro Extensive - Mental Status: Opens Eyes to Commands, Withdraws to Pain. No : Alert, Oriented x3, Normal Mood/Affect Psychiatric: Anxious. No: Alert - Patient Data Lab Results Last 24 hrs: Laboratory Results - last 24 hr 09/14/18 09/14/18 09/14/18 Range/Units 08:00 08:00 08:00 WBC 16.50 H (5.00-10.00) 10^3/uL RBC 3.56 L (4.50-6.00) 10^6/uL Hgb 10.3 L (13.0-17.0) g/dL Hct 31.6 L (40.0-52.0) % MCV 88.8 (82.0-92.0) fL MCH 28.9 (27.0-31.0) pg MCHC 32.6 (32.0-36.0) g/dL RDW 16.2 H (11.5-14.5) % Plt Count 311 (150-400) 10^3/uL MPV 8.2 (7.4-10.4) fL Immature Gran % (Auto) 0.3 (0.0-5.0) % Neut % (Auto) 84.9 H (50.0-70.0) % Lymph % (Auto) 4.8 L (20.0-40.0) % [place] % (Auto) 6.4 (2.0-8.0) % Eos % (Auto) 3.3 H (1.0-3.0) % Baso % (Auto) 0.3 (0.0-1.0) % Immature Gran # (Auto) 0.05 (0.00-0.50) 10^3/uL Neut # (Auto) 14.00 H (2.50-7.00) 10^3/uL Lymph # (Auto) 0.80 L (1.00-4.00) 10^3/uL [place] # (Auto) 1.05 H (0.10-0.80) 10^3/uL Eos # (Auto) 0.55 H (0.10-0.30) 10^3/uL Baso # (Auto) 0.05 (0.00-0.10) 10^3/uL PT 13.2 H (8.9-11.4) SEC INR 1.3 H (0.9-1.1) APTT 63.0 H* (23.1-31.3) SEC Sodium 133 L (136-145) mmol/L Potassium 3.1 L (3.3-5.3) mmol/L Chloride 94 L (98-115) mmol/L Carbon Dioxide 28.9 (21.0-32.0) mmol/L Anion Gap 13.2 (5-15) mmol/L BUN 40 H (6-25) mg/dL Creatinine 1.70 H (0.51-1.17) mg/dL Est Cr Clr Drug Dosing TNP Estimated GFR (MDRD) 42 mL/min Glucose 121 H (75 - 99) mg/dL Calcium 8.8 (8.7-10.3) mg/dL Magnesium 1.6 L (1.8-2.4) mg/dL Total Bilirubin 0.7 (0.2-1.0) mg/dL AST 25 (15-37) U/L ALT 22 (12-78) U/L Alkaline Phosphatase 138 H (46-116) IU/L Troponin I 0.06 (0.00-0.070) ng/mL B-Natriuretic Peptide 317 H (0-100) pg/mL Total Protein 7.5 (6.4-8.2) g/dL Albumin 2.61 L (3.00-4.80) g/dL Result Diagrams: 09/14/18 08:00 09/14/18 08:00 Problem List Initiated/Reviewed/Updated: Yes Orders Last 24hrs: Active Orders 24 hr Category Date Time Status Patient Status [ADT] Routine ADT 09/14/18 09:34 Ordered Central Line Assessment [RC] Q8H Care 09/14/18 09:43 Active EKG Documentation Completion [RC] ASDIRECTED Care 09/14/18 07:29 Active Oxygen Therapy [RC] PRN Care 09/14/18 09:34 Active Peripheral IV Care [RC] . DIRECTED Care 09/14/18 07:29 Inactive VTE/DVT Education [RC] PER UNIT ROUTINE Care 09/14/18 09:34 Active Vital Signs [RC] Q4H Care 09/14/18 09:34 Active CULTURE BLOOD [BC] Stat Lab 09/14/18 08:00 Received CULTURE BLOOD [BC] Stat Lab 09/14/18 08:40 Received Sodium Chloride 0.9% [Saline Flush] Med 09/14/18 07:29 Active 10 ml FLUSH Q8HR PRN Blood Culture x2 Reflex Set [OM.PC] Stat Oth 09/14/18 08:34 Ordered Peripheral IV Insertion Adult [OM.PC] Routine Oth 09/14/18 07:29 Ordered Resuscitation Status Routine Resus Stat 09/14/18 09:34 Ordered EKG 12 Lead [EK] Routine Ther 09/14/18 07:27 Ordered Medication Orders Sodium Chloride (Saline Flush) 10 ml FLUSH Q8HR PRN PRN Reason: keep vein open Assessment/Plan Comment:: History of present illness Mr Chery is a 58-year-old gentleman admitted into inpatient status through the ED due to bilateral pneumonia. She was brought in via EMS due to altered mental status. Per patient's girlfriend, she states that over the past 2-3 days he has become gradually weaker, unable to ambulate, and has increasing confusion. 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 On arrival to the ED she was lethargic however somewhat responding stating he had no chest pain, nausea or headache. Per EMS, patient was found have mild hypoxia via transport, and O2 was administered via cannula. He does take morphine for pain. Patient was evaluated in the ED on 08/22/2018 and was subsequently transferred to [facility] where he was treated for sepsis due to pneumonia, (possible aspiration) C. difficile colitis with acute encephalopathy. Patient improved quickly with antibiotics and was at his baseline with mentation upon discharge. He did receive by mouth vancomycin for his C. difficile infection. pertinent ED findings Elevated WBC leukocytois Increased renal indices catatonic movements noted on exam with near comatose. will open eyes spontanesly however appears excessively drowsy sedated Primary hospital problems Encephalopathy, 2/2 infection, medication drug overuse Phencyclidine (PCP) overdose. metabolic alkalosis somewhat compensating, suspect renal etiology limiting adaptive distal HCO3 Oversedation--Holding narcotics/sedatives Pneumonia, questionable aspiration component 2/2 AMS/Phencyclidine (PCP) overdose. Acute kidney injury, post-obstructive and prerenal component since minimal intake and amount of home diuretics Dehydration, Anemia, ACD Hypokalemia, k+ admin Hyponatremia, hypotonic Immunocompromised Host Recent C. difficile infection Hypoalbuminemia, pseudo- Chronic Problems Prostate cancer with bone mets (spine) Hx of DVT off xarelto (Dr kim's d/c) Anxiety and depression overall plan --Patient needs to be washed out from all narcotic/sedatives/hold unnecessary meds and ALL po meds. --indwelling El catheterization --hold diuretics --urine drug screen --assess lactic acid, ESR, pro-calcitonin --Staff to establish POA --Keep Social svs abreast of family dynamics DVT prophylaxis: lovenox Code: made a DO NOT RESUSCICE Diet: regular
[2018-09-14] MEDS ORDERED: Albuterol 8 GM Inhaler INH PRN (11:07)
[2018-09-14] MEDS ORDERED: Potassium Chloride 20 MEQ in Premix Bag 1 BAG IV ONE (11:21)
[2018-09-14] MEDS: MORPHINE SULFATE 100 MG PO SCH ×2 (12:51→20:31)
[2018-09-14] MEDS: ABIRATERONE ACETATE 250 MG PO SCH (12:54)
[2018-09-14 16:21] LABS: O2 DELIVERY DEVICE HI FLOW NASAL CANNU; PCO2 ARTERIAL 37 mmHG (35-45)
[2018-09-14 16:22] LABS: BASE EXCESS ARTERIAL 3 mmol/L (-2-3); BICARBONATE,ARTERIAL 27.1 mmol/L (22-26); O2 SATURATION ARTERIAL 88 % (95-98); PO2 ARTERIAL 51 mmHG (80-105)
[2018-09-14] MEDS: Nicotine 21 MG/24 Hr Patch TRDERM SCH (16:44)
[2018-09-14] MEDS: Albuterol/Ipratropium 3.0-0.5 MG/3 ML Neb Soln NEB SCH ×2 (16:50→21:17)
[2018-09-14 19:24] LABS: BARBITURATE SCREEN,URINE NEGATIVE (NEGATIVE); BENZODIAZEPINES SCREEN,URINE POSITIVE (NEGATIVE); TCA SCREEN,URINE NEGATIVE (NEGATIVE); THC SCREEN,URINE 50 NG/ML NEGATIVE (NEGATIVE)
[2018-09-14] MEDS: Potassium Chloride 20 MEQ Tab.ER PO SCH (20:31)
[2018-09-14] MEDS: Cholecalciferol (Vitamin D3) 25 MCG Tab PO SCH (20:31)
[2018-09-14] MEDS ORDERED: Sodium Chloride 0.45% 1,000 ML IV SCH (20:45)
[2018-09-14] MEDS: Sodium Chloride 0.9% 10 ML Syringe FLUSH PRN (21:15)
[2018-09-14] MEDS: Bisacodyl 5 MG Tab PO SCH (21:22)
[2018-09-14] MEDS: Piperacillin/Tazobactam 4.5 GM in Sodium Chloride 0.9% 100 ML IV SCH (22:31)
[2018-09-15] MEDS: Albuterol/Ipratropium 3.0-0.5 MG/3 ML Neb Soln NEB SCH ×6 (00:57→21:42)
[2018-09-15] MEDS: Piperacillin/Tazobactam 4.5 GM in Sodium Chloride 0.9% 100 ML IV SCH ×3 (03:30→18:18)
[2018-09-15 07:54] LABS: ANION GAP 11.9 mmol/L (5-15)
[2018-09-15] MEDS ORDERED: Furosemide 40 MG Tab PO SCH (09:00)
[2018-09-15] MEDS ORDERED: Modafinil 200 MG Tab PO SCH (09:00)
[2018-09-15] MEDS ORDERED: Metolazone 2.5 MG Tab PO SCH (09:00)
[2018-09-15] MEDS ORDERED: Bumetanide 1 MG Tab PO SCH (09:00)
[2018-09-15] MEDS: Nicotine 21 MG/24 Hr Patch TRDERM SCH (09:04)
[2018-09-15] MEDS: cefTRIAXone 1 GM Vial IVPUSH SCH (09:37)
[2018-09-15] MEDS: ABIRATERONE ACETATE 250 MG PO SCH (09:37)
[2018-09-15] MEDS: buPROPion 150 MG Tab.ER PO SCH (09:39)
[2018-09-15] MEDS: Bisacodyl 5 MG Tab PO SCH ×3 (09:39→21:22)
[2018-09-15] MEDS: predniSONE 10 MG Tab PO SCH (09:40)
[2018-09-15] MEDS: Escitalopram 10 MG Tab PO SCH (09:41)
[2018-09-15] MEDS: Potassium Chloride 10 MEQ Tab.ER PO SCH (09:41)
--- NOTE | 2018-09-15 10:44 | PCM.PN ---
- General Info Date of Service: 09/15/18 Functional Status: Reports: Pain Controlled, Tolerating Diet, New Symptoms ( Patient fully awake and alert this morning. Significant turnaround in his cognitive status after holding all sedatives/narcotics). Denies: Ambulating - Review of Systems General: Reports: Weakness, Malaise. Denies: Fever HEENT: Reports: No Symptoms Pulmonary: Reports: Cough. Denies: Shortness of Breath, Sputum Gastrointestinal: Denies: Diarrhea, Nausea Genitourinary: Denies: Urgency Musculoskeletal: Reports: Back Pain Skin: Reports: Dryness, Rash (Chronic rash intertigo folds and back) Neurological: Reports: Pre-Existing Deficit, Tremors (Catatonic jerking much improved and upper extremities), Difficulty Walking, Weakness. Denies: Confusion, Seizure Psychiatric: Reports: Mood Lability. Denies: Confusion, Anxiety, Agitation - Patient Data Vitals - Most Recent: Last Vital Signs Temp 97.4 F 09/15/18 07:00 Pulse 82 09/15/18 07:00 Resp 24 H 09/15/18 07:00 BP 97/63 09/15/18 07:00 Pulse Ox 93 L 09/15/18 07:00 Weight - Most Recent: 231 lb I&O - Last 24 Hours: Intake & Output 09/14/18 09/15/18 09/15/18 22:59 06:59 14:59 Intake Total 0 822 Output Total 750 600 Balance -750 222 Lab Results Last 24 Hours: Laboratory Results - last 24 hr 09/14/18 09/14/18 09/14/18 Range/Units 07:30 07:30 16:15 WBC (5.00-10.00) 10^3/uL RBC (4.50-6.00) 10^6/uL Hgb (13.0-17.0) g/dL Hct (40.0-52.0) % MCV (82.0-92.0) fL MCH (27.0-31.0) pg MCHC (32.0-36.0) g/dL RDW (11.5-14.5) % Plt Count (150-400) 10^3/uL MPV (7.4-10.4) fL Immature Gran % (Auto) (0.0-5.0) % Neut % (Auto) (50.0-70.0) % Lymph % (Auto) (20.0-40.0) % [place] % (Auto) (2.0-8.0) % Eos % (Auto) (1.0-3.0) % Baso % (Auto) (0.0-1.0) % Immature Gran # (Auto) (0.00-0.50) 10^3/uL Neut # (Auto) (2.50-7.00) 10^3/uL Lymph # (Auto) (1.00-4.00) 10^3/uL [place] # (Auto) (0.10-0.80) 10^3/uL Eos # (Auto) (0.10-0.30) 10^3/uL Baso # (Auto) (0.00-0.10) 10^3/uL ESR 129 H (0-15) mm/hr ABG pH 7.48 H (7.35-7.45) ABG pCO2 37 (35-45) mmHG ABG pO2 51 L (80-105) mmHG ABG HCO3 27.1 H (22-26) mmol/L ABG Total CO2 28 H (23-27) mmol/L ABG O2 Saturation 88 L (95-98) % ABG Base Excess 3 (-2-3) mmol/L O2 Delivery Device Hi flow nasal cannu Sodium (136-145) mmol/L Potassium (3.3-5.3) mmol/L Chloride (98-115) mmol/L Carbon Dioxide (21.0-32.0) mmol/L Anion Gap (5-15) mmol/L BUN (6-25) mg/dL Creatinine (0.51-1.17) mg/dL Est Cr Clr Drug Dosing mL/min Estimated GFR (MDRD) mL/min Glucose (75 - 99) mg/dL Lactic Acid 0.7 (0.4-2.0) mmol/L Calcium (8.7-10.3) mg/dL Urine Opiates Screen (NEGATIVE) Ur Oxycodone Screen (NEGATIVE) Urine Methadone Screen (NEGATIVE) Ur Propoxyphene Screen (NEGATIVE) Ur Barbiturates Screen (NEGATIVE) Ur Tricyclics Screen (NEGATIVE) Ur Phencyclidine Scrn (NEGATIVE) Ur Amphetamine Screen (NEGATIVE) U Methamphetamines Scrn (NEGATIVE) U Benzodiazepines Scrn (NEGATIVE) U Cocaine Metab Screen (NEGATIVE) U Marijuana (THC) Screen (NEGATIVE) 09/14/18 09/15/18 09/15/18 Range/Units 18:25 07:13 07:13 WBC 15.05 H (5.00-10.00) 10^3/uL RBC 3.34 L (4.50-6.00) 10^6/uL Hgb 9.7 L (13.0-17.0) g/dL Hct 30.1 L (40.0-52.0) % MCV 90.1 (82.0-92.0) fL MCH 29.0 (27.0-31.0) pg MCHC 32.2 (32.0-36.0) g/dL RDW 16.2 H (11.5-14.5) % Plt Count 256 (150-400) 10^3/uL MPV 8.1 (7.4-10.4) fL Immature Gran % (Auto) 0.7 (0.0-5.0) % Neut % (Auto) 86.6 H (50.0-70.0) % Lymph % (Auto) 3.7 L (20.0-40.0) % [place] % (Auto) 7.2 (2.0-8.0) % Eos % (Auto) 1.5 (1.0-3.0) % Baso % (Auto) 0.3 (0.0-1.0) % Immature Gran # (Auto) 0.11 (0.00-0.50) 10^3/uL Neut # (Auto) 13.03 H (2.50-7.00) 10^3/uL Lymph # (Auto) 0.55 L (1.00-4.00) 10^3/uL [place] # (Auto) 1.09 H (0.10-0.80) 10^3/uL Eos # (Auto) 0.23 (0.10-0.30) 10^3/uL Baso # (Auto) 0.04 (0.00-0.10) 10^3/uL ESR (0-15) mm/hr ABG pH (7.35-7.45) ABG pCO2 (35-45) mmHG ABG pO2 (80-105) mmHG ABG HCO3 (22-26) mmol/L ABG Total CO2 (23-27) mmol/L ABG O2 Saturation (95-98) % ABG Base Excess (-2-3) mmol/L O2 Delivery Device Sodium 136 (136-145) mmol/L Potassium 3.1 L (3.3-5.3) mmol/L Chloride 98 (98-115) mmol/L Carbon Dioxide 29.2 (21.0-32.0) mmol/L Anion Gap 11.9 (5-15) mmol/L BUN 32 H (6-25) mg/dL Creatinine 1.46 H (0.51-1.17) mg/dL Est Cr Clr Drug Dosing 52.19 mL/min Estimated GFR (MDRD) 50 mL/min Glucose 148 H (75 - 99) mg/dL Lactic Acid (0.4-2.0) mmol/L Calcium 8.6 L (8.7-10.3) mg/dL Urine Opiates Screen Positive H (NEGATIVE) Ur Oxycodone Screen Negative (NEGATIVE) Urine Methadone Screen Negative (NEGATIVE) Ur Propoxyphene Screen Negative (NEGATIVE) Ur Barbiturates Screen Negative (NEGATIVE) Ur Tricyclics Screen Negative (NEGATIVE) Ur Phencyclidine Scrn Positive H (NEGATIVE) Ur Amphetamine Screen Negative (NEGATIVE) U Methamphetamines Scrn Negative (NEGATIVE) U Benzodiazepines Scrn Positive H (NEGATIVE) U Cocaine Metab Screen Negative (NEGATIVE) U Marijuana (THC) Screen Negative (NEGATIVE) Dann Results Last 24 Hours: Microbiology 09/14/18 08:40 Aerobic Blood Culture - Preliminary Blood - Venous - Lab Draw NO GROWTH AFTER 1 DAY Anaerobic Blood Culture - Preliminary NO GROWTH AFTER 1 DAY 09/14/18 08:00 Aerobic Blood Culture - Preliminary Blood - Venous NO GROWTH AFTER 1 DAY Anaerobic Blood Culture - Preliminary NO GROWTH AFTER 1 DAY Med Orders - Current: Current Medications Albuterol (Ventolin Hfa) 0 gm INH Q4H PRN PRN Reason: Shortness of Breath Albuterol/Ipratropium (Duoneb 3.0-0.5 Mg/3 Ml) 3 ml NEB Q4HRRT [facility] Last Admin: 09/15/18 08:59 Dose: 3 ml Bisacodyl (Dulcolax) 5 mg PO BID [facility] Last Admin: 09/15/18 09:39 Dose: Not Given Bumetanide (Bumex) 1 mg PO DAILY [facility] Bupropion HCl (Wellbutrin Xl) 150 mg PO DAILY [facility] Last Admin: 09/15/18 09:39 Dose: 150 mg Ceftriaxone Sodium (Rocephin) 1 gm IVPUSH Q24H [facility] Last Admin: 09/15/18 09:37 Dose: 1 gm Cholecalciferol (Vitamin D3) 2,000 units PO DAILY@1800 [facility] Last Admin: 09/14/18 20:31 Dose: Not Given Diazepam (Valium) 2 mg IVPUSH ASDIRECTED PRN PRN Reason: Seizures Escitalopram Oxalate (Lexapro) 20 mg PO DAILY [facility] Last Admin: 09/15/18 09:41 Dose: 20 mg Fluticasone/Vilanterol (Breo Ellipta 200-25 Mcg Inhalation Kit) each IH DAILY [facility] Furosemide (Lasix) 60 mg PO DAILY [facility] Sodium Chloride (Sodium Chloride 0.45%) 1,000 mls @ 70 mls/hr IV ASDIRECTED [facility] Last Admin: 09/14/18 21:18 Dose: 70 mls/hr Piperacillin Sod/Tazobactam (Sod 4.5 gm/ Sodium Chloride) 100 mls @ 200 mls/hr IV Q6H [facility] Last Admin: 09/15/18 03:30 Dose: 200 mls/hr Metolazone (Zaroxolyn) 2.5 mg PO DAILY [facility] Modafinil (Provigil) 200 mg PO DAILY [facility] Nicotine (Habitrol) 21 mg TRDERM DAILY [facility] Last Admin: 09/15/18 09:04 Dose: 21 mg Non-Formulary Medication (Ca/D3/Mag Ox/Zinc/Photocopying Equipment Mechanic/Chuckie/Bor [[facility] Calcium 600-D3 Plus Tablet]) 1 tab PO BID [facility] Abiraterone Acetate (250mg - Ptom) 4 each PO DAILY [facility] Last Admin: 09/15/18 09:37 Dose: 4 each Morphine Sulfate Er (100mg - Ptom) 1 each PO BID@0800,1800 [facility] Last Admin: 09/14/18 20:31 Dose: Not Given Potassium Chloride (Klor-Con 10) 10 meq PO DAILY [facility] Last Admin: 09/15/18 09:41 Dose: 10 meq Potassium Chloride (Klor-Con M20) 20 meq PO DAILY@1800 [facility] Last Admin: 09/14/18 20:31 Dose: Not Given Prednisone (Prednisone) 10 mg PO DAILY [facility] Last Admin: 09/15/18 09:40 Dose: 10 mg Sodium Chloride (Saline Flush) 10 ml FLUSH Q8HR PRN PRN Reason: keep vein open Last Admin: 09/14/18 21:15 Dose: 10 ml Spironolactone (Aldactone) 25 mg PO DAILY [facility] Discontinued Medications Ceftriaxone Sodium (Rocephin) 1 gm IVPUSH ONETIME ONE Stop: 09/14/18 09:20 Last Admin: 09/14/18 09:30 Dose: 1 gm Sodium Chloride (Normal Saline) 1,000 mls @ 999 mls/hr IV .BOLUS ONE Stop: 09/14/18 10:19 Last Admin: 09/14/18 09:30 Dose: 999 mls/hr Potassium Chloride 20 meq/ (Premix) 100 mls @ 50 mls/hr IV ONETIME ONE Stop: 09/14/18 13:20 Last Admin: 09/14/18 12:48 Dose: 50 mls/hr - Exam Quality Assessment: Supplemental Oxygen, DVT Prophylaxis General: Alert, Cooperative, Mild Distress, Lethargic, Other (Sitting up, conversing, recognize me upon entering room, appears only slightly sedated now from being completely obtunded yesterday). No: Obtunded HEENT: Pupils Equal Neck: Supple Lungs: Rhonchi, Other (Improved breath sounds left-sided chest wall) Cardiovascular: Regular Rate, Regular Rhythm, Murmurs GI/Abdominal Exam: Soft, Non-Tender (Male) Exam: Rash (intertigo folds, excoriated rash with light skin breakdown abdominal folds from scratching). No: Suprapubic Fullness Back Exam: No: CVA Tenderness (R) Extremities: Leg Pain (Generalize right leg pain, however no swelling, good distal pulses,), Increased Warmth. No: Pedal Edema, Slow Capillary Refill, Veronica's Sign, Redness Peripheral Pulses: 2+: Radial (L), Radial (R) Skin: Dry. No: Intact Neurological: Normal Speech, Cranial Nerves Intact Psy/Mental Status: Alert, Labile Mood. No: Anxious, Agitated, Hallucinations, Withdrawal Symptoms - Problem List Review Problem List Initiated/Reviewed/Updated: Yes - My Orders Last 24 Hours: My Active Orders 09/14/18 11:07 Albuterol [Ventolin HFA] 0 gm INH Q4H PRN 09/14/18 11:15 Patient's Own Medication [Ptom] 4 each PO DAILY 09/14/18 11:22 Code Status [Resuscitation Status] Routine 09/14/18 12:00 Patient's Own Medication [Ptom] 1 each PO BID@0800,1800 09/14/18 15:47 RT Aerosol Therapy [RC] ASDIRECTED 09/14/18 16:00 Nicotine [Habitrol] 21 mg TRDERM DAILY 09/14/18 17:00 Albuterol/Ipratropium [DuoNeb 3.0-0.5 MG/3 ML] 3 ml NEB Q4HRRT 09/14/18 18:00 Cholecalciferol (Vitamin D3) [Vitamin D3] 2,000 units PO DAILY@1800 Potassium Chloride [Klor-Con M20] 20 meq PO DAILY@1800 09/14/18 18:39 Insert Urinary Catheter [OM.PC] Stat 09/14/18 20:45 Sodium Chloride 0.45% 1,000 ml IV ASDIRECTED 09/14/18 21:00 Bisacodyl [Dulcolax] 5 mg PO BID Ca/D3/Mag Ox/Zinc/Photocopying Equipment Mechanic/Chuckie/Bor [[facility] Calcium 600-D3 Plus Tablet] 1 tab PO BID 09/14/18 21:30 Piperacillin/Tazobactam [Zosyn] 4.5 gm Sodium Chloride 0.9% [Normal Saline] 100 ml IV Q6H 09/14/18 21:55 diazePAM [Valium] 2 mg IVPUSH ASDIRECTED PRN 09/14/18 22:31 Communication Order [RC] DAILY 09/14/18 23:09 Communication Order [RC] DAILY 09/14/18 Lunch Regular Diet [DIET] 09/15/18 06:16 Bladder Scan [RC] ASDIRECTED 09/15/18 09:00 Bumetanide [Bumex] 1 mg PO DAILY Escitalopram [Lexapro] 20 mg PO DAILY Fluticasone/Vilanterol [Breo Ellipta 200-25 MCG Inhalation Kit] DOSE each IH DAILY Furosemide [Lasix] 60 mg PO DAILY Modafinil [Provigil] 200 mg PO DAILY Potassium Chloride [Klor-Con 10] 10 meq PO DAILY Spironolactone [Aldactone] 25 mg PO DAILY buPROPion [Wellbutrin XL] 150 mg PO DAILY cefTRIAXone [Rocephin] 1 gm IVPUSH Q24H metOLazone [Zaroxolyn] 2.5 mg PO DAILY predniSONE 10 mg PO DAILY - Plan Plan:: History of present illness Mr Chery is a 58-year-old gentleman admitted into inpatient status through the ED due to bilateral pneumonia. She was brought in via EMS due to altered mental status. Per patient's girlfriend, she states that over the past 2-3 days he has become gradually weaker, unable to ambulate, and has increasing confusion. 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 On arrival to the ED she was lethargic however somewhat responding stating he had no chest pain, nausea or headache. Per EMS, patient was found have mild hypoxia via transport, and O2 was administered via cannula. He does take morphine for pain. Patient was evaluated in the ED on 08/22/2018 and was subsequently transferred to [facility] where he was treated for sepsis due to pneumonia, (possible aspiration) C. difficile colitis with acute encephalopathy. Patient improved quickly with antibiotics and was at his baseline with mentation upon discharge. He did receive by mouth vancomycin for his C. difficile infection. Update this morning on rounds Sitting up, conversing, recognized me by name upon entering room, appears only slightly sedated now from being completely obtunded/comatose yesterday. All narcotics, sedatives have been on hold since admission, yesterday had catatonic movements noted on exam. Primary hospital problems Encephalopathy, 2/2 infection, medication drug overuse. Much improved Phencyclidine (PCP) exposure, Rx consult to determine if expected metabolite metabolic alkalosis somewhat compensating, suspect renal etiology limiting adaptive distal HCO3 excretion Oversedation, much improved Pneumonia, questionable aspiration component 2/2 AMS/Phencyclidine (PCP) exposure Acute kidney injury, post-obstructive and prerenal component since minimal intake and amount of home diuretics Dehydration, improving Anemia, ACD Hypokalemia, k+ admin Hyponatremia, hypotonic Immunocompromised Host Recent C. difficile infection Hypoalbuminemia, pseudo- Tobacco dependency, nicotine replacement therapy Chronic Problems Prostate cancer with bone mets (spine) Hx of DVT back back on xarelto Anxiety and depression, good family support however increased family dynamics, consider limiting visitors to 2 at one time overall plan --Continue inpatient stay --added Zosyn last night --Can be placed back on MS Contin however only ~25% of dose today, continue holding all benzodiazepines, Gabapentin Modafinil and other sedatives --indwelling El catheterization discontinue --Start back on Breo Ellipta --cont holding diuretics --Staff to establish POA --Keep Social svs abreast of family dynamics DVT prophylaxis: Xarelto Code: made a DO NOT RESUSCICE Diet: regular
[2018-09-15] MEDS: Albuterol/Ipratropium 3.0-0.5 MG/3 ML Neb Soln INH SCH ×3 (12:04→22:02)
[2018-09-15] MEDS: D5 1/2 NS w/ 40 mEq/L KCl 1,000 ML IV SCH (12:04)
[2018-09-15] MEDS: Fluticasone/Vilanterol 200 MCG/25 MCG Inhalation Powder Kit of 14 IH SCH (12:11)
[2018-09-15] MEDS: Nicotine 7 MG/24 Hr Patch TRDERM SCH (13:52)
[2018-09-15] MEDS: Morphine 30 MG Tab.ER PO SCH ×2 (13:53→18:20)
[2018-09-15] MEDS: Rivaroxaban 10 MG Tab PO SCH (18:19)
[2018-09-15] MEDS: Cholecalciferol (Vitamin D3) 25 MCG Tab PO SCH (18:19)
[2018-09-15] MEDS: Potassium Chloride 20 MEQ Tab.ER PO SCH (18:19)
[2018-09-15] MEDS: Fluticasone Propionate Nasal Spray 16 GM Bottle NASBOTH SCH (21:21)
[2018-09-16] MEDS: Piperacillin/Tazobactam 4.5 GM in Sodium Chloride 0.9% 100 ML IV SCH ×2 (00:43→06:56)
[2018-09-16] MEDS: D5 1/2 NS w/ 40 mEq/L KCl 1,000 ML IV SCH ×2 (05:46→12:00)
[2018-09-16] MEDS: Albuterol/Ipratropium 3.0-0.5 MG/3 ML Neb Soln INH SCH ×4 (05:46→21:10)
[2018-09-16] MEDS: Nicotine 7 MG/24 Hr Patch TRDERM SCH (08:24)
[2018-09-16] MEDS: Bisacodyl 5 MG Tab PO SCH ×3 (08:25→21:14)
[2018-09-16] MEDS: Nicotine 21 MG/24 Hr Patch TRDERM SCH (08:25)
[2018-09-16] MEDS: Fluticasone/Vilanterol 200 MCG/25 MCG Inhalation Powder Kit of 14 IH SCH (08:25)
[2018-09-16] MEDS: Fluticasone Propionate Nasal Spray 16 GM Bottle NASBOTH SCH ×2 (08:26→21:10)
[2018-09-16] MEDS: Morphine 30 MG Tab.ER PO SCH ×2 (08:26→17:33)
[2018-09-16] MEDS: ABIRATERONE ACETATE 250 MG PO SCH (08:27)
[2018-09-16] MEDS: cefTRIAXone 1 GM Vial IVPUSH SCH (08:27)
[2018-09-16] MEDS: Escitalopram 10 MG Tab PO SCH (08:27)
[2018-09-16] MEDS: Potassium Chloride 10 MEQ Tab.ER PO SCH (08:27)
[2018-09-16] MEDS: buPROPion 150 MG Tab.ER PO SCH (08:27)
[2018-09-16] MEDS: predniSONE 10 MG Tab PO SCH (08:27)
[2018-09-16 09:29] LABS: ANION GAP 13.7 mmol/L (5-15); CHLORIDE,CL 100 mmol/L (98-115); SODIUM,NA 136 mmol/L (136-145)
--- NOTE | 2018-09-16 10:19 | PCM.PN ---
- General Info Date of Service: 09/16/18 Functional Status: Reports: Pain Controlled, Urinating. Denies: Tolerating Diet , Ambulating, New Symptoms - Review of Systems General: Reports: Weakness Pulmonary: Denies: Cough, Sputum, Hemoptysis, Wheezing Cardiovascular: Reports: Dyspnea on Exertion. Denies: Chest Pain, Palpitations , Orthopnea, Edema, Lightheadedness Gastrointestinal: Reports: Abdominal Pain, Decreased Appetite. Denies: Diarrhea , Nausea, Vomiting Genitourinary: Reports: No Symptoms Musculoskeletal: Reports: Back Pain Skin: Reports: Dryness, Rash Neurological: Reports: Difficulty Walking, Weakness. Denies: Confusion, Dizziness Psychiatric: Reports: Depression, Mood Lability. Denies: Confusion, Agitation, Cravings, Hallucinations - Patient Data Vitals - Most Recent: Last Vital Signs Temp 98.3 F 09/16/18 07:00 Pulse 89 09/16/18 07:00 Resp 24 H 09/16/18 07:00 BP 103/62 09/16/18 07:00 Pulse Ox 98 09/16/18 07:00 Weight - Most Recent: 231 lb I&O - Last 24 Hours: Intake & Output 09/15/18 09/16/18 09/16/18 22:59 06:59 14:59 Intake Total 865 1386 Balance 865 1386 Lab Results Last 24 Hours: Laboratory Results - last 24 hr 09/16/18 09/16/18 Range/Units 08:30 08:30 WBC 15.61 H (5.00-10.00) 10^3/uL RBC 3.25 L (4.50-6.00) 10^6/uL Hgb 9.5 L (13.0-17.0) g/dL Hct 28.9 L (40.0-52.0) % MCV 88.9 (82.0-92.0) fL MCH 29.2 (27.0-31.0) pg MCHC 32.9 (32.0-36.0) g/dL RDW 16.1 H (11.5-14.5) % Plt Count 286 (150-400) 10^3/uL MPV 8.6 (7.4-10.4) fL Immature Gran % (Auto) 0.5 (0.0-5.0) % Neut % (Auto) 87.4 H (50.0-70.0) % Lymph % (Auto) 3.3 L (20.0-40.0) % Greer % (Auto) 7.0 (2.0-8.0) % Eos % (Auto) 1.5 (1.0-3.0) % Baso % (Auto) 0.3 (0.0-1.0) % Immature Gran # (Auto) 0.08 (0.00-0.50) 10^3/uL Neut # (Auto) 13.62 H (2.50-7.00) 10^3/uL Lymph # (Auto) 0.52 L (1.00-4.00) 10^3/uL Greer # (Auto) 1.10 H (0.10-0.80) 10^3/uL Eos # (Auto) 0.24 (0.10-0.30) 10^3/uL Baso # (Auto) 0.05 (0.00-0.10) 10^3/uL Sodium 136 (136-145) mmol/L Potassium 2.9 L (3.3-5.3) mmol/L Chloride 100 (98-115) mmol/L Carbon Dioxide 25.2 (21.0-32.0) mmol/L Anion Gap 13.7 (5-15) mmol/L BUN 20 (6-25) mg/dL Creatinine 1.12 (0.51-1.17) mg/dL Est Cr Clr Drug Dosing 68.03 mL/min Estimated GFR (MDRD) > 60 mL/min Glucose 145 H (75 - 99) mg/dL Calcium 8.8 (8.7-10.3) mg/dL Total Bilirubin 0.5 (0.2-1.0) mg/dL AST 35 (15-37) U/L ALT 32 (12-78) U/L Alkaline Phosphatase 197 H (46-116) IU/L Total Protein 7.2 (6.4-8.2) g/dL Albumin 2.09 L (3.00-4.80) g/dL Dann Results Last 24 Hours: Microbiology 09/14/18 08:40 Aerobic Blood Culture - Preliminary Blood - Venous - Lab Draw NO GROWTH AFTER 2 DAYS Anaerobic Blood Culture - Preliminary NO GROWTH AFTER 2 DAYS 09/14/18 08:00 Aerobic Blood Culture - Preliminary Blood - Venous NO GROWTH AFTER 2 DAYS Anaerobic Blood Culture - Preliminary NO GROWTH AFTER 2 DAYS 09/15/18 11:30 Clostridium difficile Toxin A & B - Final Stool / Feces NEGATIVE CDIFF TOXIN REFERENCE RANGE: NEGATIVE Med Orders - Current: Current Medications Albuterol (Ventolin Hfa) 0 gm INH Q4H PRN PRN Reason: Shortness of Breath Albuterol/Ipratropium (Duoneb 3.0-0.5 Mg/3 Ml) 3 ml INH QIDRT [facility] Last Admin: 09/16/18 05:46 Dose: 3 ml Bisacodyl (Dulcolax) 5 mg PO BID [facility] Last Admin: 09/16/18 08:25 Dose: Not Given Bisacodyl (Dulcolax) 5 - 10 mg PO DAILY [facility] Last Admin: 09/16/18 08:25 Dose: Not Given Bumetanide (Bumex) 1 mg PO DAILY [facility] Bupropion HCl (Wellbutrin Xl) 150 mg PO DAILY [facility] Last Admin: 09/16/18 08:27 Dose: 150 mg Ceftriaxone Sodium (Rocephin) 1 gm IVPUSH Q24H [facility] Last Admin: 09/16/18 08:27 Dose: 1 gm Cholecalciferol (Vitamin D3) 2,000 units PO DAILY@1800 [facility] Last Admin: 09/15/18 18:19 Dose: 2,000 units Diazepam (Valium) 2 mg IVPUSH ASDIRECTED PRN PRN Reason: Seizures Escitalopram Oxalate (Lexapro) 20 mg PO DAILY [facility] Last Admin: 09/16/18 08:27 Dose: 20 mg Fluticasone Propionate (Flonase) 0 gm NASBOTH BID [facility] Last Admin: 09/16/18 08:26 Dose: 1 sprays Fluticasone/Vilanterol (Breo Ellipta 200-25 Mcg Inhalation Kit) 0 each IH DAILY [facility] Last Admin: 09/16/18 08:25 Dose: 2 puff Furosemide (Lasix) 60 mg PO DAILY [facility] Potassium Chloride/Dextrose/Sod Cl (D5 1/2 Ns W/ 40 Meq/L Kcl) 1,000 mls @ 65 mls/hr IV ASDIRECTED [facility] Last Admin: 09/16/18 05:46 Dose: 65 mls/hr Piperacillin Sod/Tazobactam (Sod 4.5 gm/ Sodium Chloride) 100 mls @ 200 mls/hr IV Q6H [facility] Last Admin: 09/16/18 06:56 Dose: 200 mls/hr Metolazone (Zaroxolyn) 2.5 mg PO DAILY [facility] Modafinil (Provigil) 200 mg PO DAILY [facility] Morphine Sulfate (Ms Contin) 30 mg PO BID@0800,1800 [facility] Last Admin: 09/16/18 08:26 Dose: 30 mg Nicotine (Habitrol) 21 mg TRDERM DAILY [facility] Last Admin: 09/16/18 08:25 Dose: 21 mg Nicotine (Habitrol) 7 mg TRDERM 0900 [facility] Last Admin: 09/16/18 08:24 Dose: 7 mg Non-Formulary Medication (Ca/D3/Mag Ox/Zinc/Data Capture Clerk/Chuckie/Bor [[facility] Calcium 600-D3 Plus Tablet]) 1 tab PO BID [facility] Abiraterone Acetate (250mg - Ptom) 4 each PO DAILY [facility] Last Admin: 09/16/18 08:27 Dose: 4 each Morphine Sulfate Er (100mg - Ptom) 1 each PO BID@0800,1800 [facility] Last Admin: 09/14/18 20:31 Dose: Not Given Potassium Chloride (Klor-Con 10) 10 meq PO DAILY [facility] Last Admin: 09/16/18 08:27 Dose: 10 meq Potassium Chloride (Klor-Con M20) 20 meq PO DAILY@1800 [facility] Last Admin: 09/15/18 18:19 Dose: 20 meq Prednisone (Prednisone) 10 mg PO DAILY [facility] Last Admin: 09/16/18 08:27 Dose: 10 mg Rivaroxaban (Xarelto) 20 mg PO DAILY@1800 [facility] Last Admin: 09/15/18 18:19 Dose: 20 mg Sodium Chloride (Saline Flush) 10 ml FLUSH Q8HR PRN PRN Reason: keep vein open Last Admin: 09/14/18 21:15 Dose: 10 ml Spironolactone (Aldactone) 25 mg PO DAILY [facility] Discontinued Medications Albuterol/Ipratropium (Duoneb 3.0-0.5 Mg/3 Ml) 3 ml NEB Q4HRRT [facility] Last Admin: 09/15/18 21:42 Dose: Not Given Ceftriaxone Sodium (Rocephin) 1 gm IVPUSH ONETIME ONE Stop: 09/14/18 09:20 Last Admin: 09/14/18 09:30 Dose: 1 gm Sodium Chloride (Normal Saline) 1,000 mls @ 999 mls/hr IV .BOLUS ONE Stop: 09/14/18 10:19 Last Admin: 09/14/18 09:30 Dose: 999 mls/hr Potassium Chloride 20 meq/ (Premix) 100 mls @ 50 mls/hr IV ONETIME ONE Stop: 09/14/18 13:20 Last Admin: 09/14/18 12:48 Dose: 50 mls/hr Sodium Chloride (Sodium Chloride 0.45%) 1,000 mls @ 70 mls/hr IV ASDIRECTED [facility] Last Admin: 09/14/18 21:18 Dose: 70 mls/hr Piperacillin Sod/Tazobactam (Sod 4.5 gm/ Sodium Chloride) 100 mls @ 200 mls/hr IV Q6H [facility] Last Admin: 09/15/18 18:18 Dose: 200 mls/hr - Exam Quality Assessment: DVT Prophylaxis. No: Supplemental Oxygen General: Alert, Oriented, No Acute Distress. No: Sedated, Lethargic Neck: Supple Lungs: Clear to Auscultation, Normal Respiratory Effort GI/Abdominal Exam: Soft Extremities: No Pedal Edema Peripheral Pulses: 2+: Radial (L), Radial (R) Skin: Dry Neurological: Normal Speech Psy/Mental Status: Alert, Labile Mood. No: Agitated - Problem List Review Problem List Initiated/Reviewed/Updated: Yes - My Orders Last 24 Hours: My Active Orders 09/15/18 10:30 D5 1/2 NS w/ 40 mEq/L KCl 1,000 ml IV ASDIRECTED 09/15/18 10:45 Bisacodyl [Dulcolax] 5 - 10 mg PO DAILY Morphine [MS Contin] 30 mg PO BID@0800,1800 09/15/18 11:15 Albuterol/Ipratropium [DuoNeb 3.0-0.5 MG/3 ML] 3 ml INH QIDRT 09/15/18 11:43 Nicotine [Habitrol] 7 mg TRDERM 0900 [facility] [COMM] Stat 09/15/18 18:00 Rivaroxaban [Xarelto] 20 mg PO DAILY@1800 09/15/18 21:00 Fluticasone Propionate [Flonase] 0 gm NASBOTH BID 09/16/18 01:00 CULTURE SPUTUM + SMEAR [RM] Routine Piperacillin/Tazobactam [Zosyn] 4.5 gm Sodium Chloride 0.9% [Normal Saline] 100 ml IV Q6H 09/16/18 09:26 Intake and Output [RC] 1400,2200,0600 - Plan Plan:: History of present illness Mr Chery is a 58-year-old gentleman admitted into inpatient status through the ED due to bilateral pneumonia. She was brought in via EMS due to altered mental status. Per patient's girlfriend, she states that over the past 2-3 days he has become gradually weaker, unable to ambulate, and has increasing confusion. 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 On arrival to the ED she was lethargic however somewhat responding stating he had no chest pain, nausea or headache. Per EMS, patient was found have mild hypoxia via transport, and O2 was administered via cannula. He does take morphine for pain. Patient was evaluated in the ED on 08/22/2018 and was subsequently transferred to [facility] where he was treated for sepsis due to pneumonia, (possible aspiration) C. difficile colitis with acute encephalopathy. Patient improved quickly with antibiotics and was at his baseline with mentation upon discharge. He did receive by mouth vancomycin for his C. difficile infection. Patient recently had MRI of his lumbar spine in which he became very lethargic thereafter after requiring sedation medication of benzodiazepine wiring assistance and sustained a fall. He states he gets quite "loopy" because he requires a higher dose to normal due to claustrophobic. Update this morning on rounds Family in room, patient much more alert, slightly withdrawn, minimal pain and back and abdomen, no longer appears sedated after being completely obtunded/ comatose on admission. Held all narcotics/sedatives on admission however yesterday started back on home MS Contin however only 25% which appears to be controlling his pain with good level of function. Although family desires increase in narcotics. Decrease appetite, meals do not appear up feeling to him liver no nausea or vomiting. Primary hospital problems Encephalopathy, 2/2 infection, medication drug overuse. Much improved Phencyclidine (PCP) exposure, expected metabolite in ~10% of patients on benzodiazepines metabolic alkalosis somewhat compensating, suspect renal etiology limiting adaptive distal HCO3 excretion Oversedation, much improved Pneumonia, questionable aspiration component 2/2 AMS/Phencyclidine (PCP) exposure Acute kidney injury, post-obstructive and prerenal component since minimal intake and amount of home diuretics, improving Dehydration, improving becoming euvolemic, holding diuretics Anemia, ACD Hypokalemia, k+ admin Hyponatremia, hypotonic, resolved Immunocompromised Host Recent C. difficile infection Hypoalbuminemia, pseudo- Tobacco dependency, nicotine replacement therapy Chronic Problems Prostate cancer with bone mets (spine) Hx of DVT on xarelto Anxiety and depression, good family support however increased family dynamics, consider limiting visitors to 2 at one time overall plan --Continue inpatient stay, may need SNF --PT consult in am --Replace potassium (will require 120-140meq today) --Add azithromycin --Discontinue Zosyn --Reduce IV fluids --Continue with home medication of MS Contin however only ~25% of dose --Placed back on Restoril however only 7.5 mg daily at bedtime --Low-dose Xanax when necessary only --Appealing meals, --labs in am --cont holding diuretics --Staff to establish POA --Suggest providing monitored anesthesia care (MAC) for any future imaging due to oversedation/claustrophobia --Keep Social svs abreast of family dynamics DVT prophylaxis: Xarelto Code: made a DO NOT RESUSCICE Diet: regular
[2018-09-16] MEDS ORDERED: Potassium Bicarbonate 25 MEQ Tab.EFF PO SCH ×2 (10:45→17:00)
[2018-09-16] MEDS: Azithromycin 250 MG Tab PO SCH (11:30)
[2018-09-16] MEDS: ALPRAZolam 0.25 MG Tab PO PRN ×2 (11:30→21:10)
[2018-09-16] MEDS ORDERED: Potassium Bicarbonate 25 MEQ Tab.EFF PO ONE (17:00)
[2018-09-16] MEDS: Cholecalciferol (Vitamin D3) 25 MCG Tab PO SCH (17:33)
[2018-09-16] MEDS: Rivaroxaban 10 MG Tab PO SCH (17:33)
[2018-09-16] MEDS ORDERED: Temazepam 15 MG Cap PO SCH (21:00)
[2018-09-17] MEDS ORDERED: Morphine 30 MG Tab.ER PO STA (00:09)
[2018-09-17] MEDS: Sodium Chloride 0.9% 10 ML Syringe FLUSH PRN (00:50)
[2018-09-17] MEDS: D5 1/2 NS w/ 40 mEq/L KCl 1,000 ML IV SCH (00:51)
[2018-09-17] MEDS: Albuterol/Ipratropium 3.0-0.5 MG/3 ML Neb Soln INH SCH ×4 (05:29→22:56)
[2018-09-17] MEDS: ALPRAZolam 0.25 MG Tab PO PRN ×2 (07:16→17:27)
[2018-09-17] MEDS: predniSONE 10 MG Tab PO SCH (08:15)
[2018-09-17] MEDS: Fluticasone Propionate Nasal Spray 16 GM Bottle NASBOTH SCH ×2 (08:15→20:28)
[2018-09-17] MEDS: Morphine 30 MG Tab.ER PO SCH ×2 (08:16→17:26)
[2018-09-17] MEDS: buPROPion 150 MG Tab.ER PO SCH (08:16)
[2018-09-17] MEDS: Azithromycin 250 MG Tab PO SCH (08:16)
[2018-09-17] MEDS: ABIRATERONE ACETATE 250 MG PO SCH (08:17)
[2018-09-17] MEDS: Escitalopram 10 MG Tab PO SCH (08:18)
[2018-09-17 08:45] LABS: CHLORIDE,CL 99 mmol/L (98-115); SODIUM,NA 134 mmol/L (136-145)
[2018-09-17] MEDS: Bisacodyl 5 MG Tab PO SCH ×3 (08:46→20:28)
[2018-09-17] MEDS: Nicotine 7 MG/24 Hr Patch TRDERM SCH (08:46)
[2018-09-17] MEDS: cefTRIAXone 1 GM Vial IVPUSH SCH (08:46)
[2018-09-17] MEDS: Nicotine 21 MG/24 Hr Patch TRDERM SCH (08:47)
[2018-09-17] MEDS: Fluticasone/Vilanterol 200 MCG/25 MCG Inhalation Powder Kit of 14 IH SCH ×2 (09:04→09:50)
[2018-09-17] MEDS ORDERED: Furosemide 20 MG Tab PO ONE (10:30)
[2018-09-17] MEDS ORDERED: Potassium Chloride 20 MEQ in Premix Bag 1 BAG IV ONE ×2 (10:34→14:00)
--- NOTE | 2018-09-17 10:39 | PCM.PN ---
- General Info Date of Service: 09/17/18 Functional Status: Denies: Pain Controlled (Was called last night at midnight by nursing staff due to increasing agitation and pain) - Review of Systems General: Denies: Fever, Weakness, Chills HEENT: Reports: No Symptoms Pulmonary: Denies: Cough, Wheezing Cardiovascular: Reports: Dyspnea on Exertion Gastrointestinal: Reports: Decreased Appetite Genitourinary: Reports: No Symptoms Musculoskeletal: Reports: Back Pain, Other (Increasing abdominal pain) Skin: Reports: Dryness, Bruising Neurological: Reports: Pre-Existing Deficit, Difficulty Walking, Weakness. Denies: Confusion, Headache, Numbness, Syncope Psychiatric: Reports: Agitation, Other (Slight agitation last night) - Patient Data Vitals - Most Recent: Last Vital Signs Temp 98.3 F 09/17/18 07:00 Pulse 93 09/17/18 07:00 Resp 28 H 09/17/18 07:00 BP 118/75 09/17/18 07:00 Pulse Ox 91 L 09/17/18 07:00 Weight - Most Recent: 231 lb I&O - Last 24 Hours: Intake & Output 09/16/18 09/17/18 09/17/18 22:59 06:59 14:59 Intake Total 1243 383 Balance 1243 383 Lab Results Last 24 Hours: Laboratory Results - last 24 hr 09/17/18 09/17/18 09/17/18 Range/Units 08:00 08:00 08:00 WBC 16.23 H (5.00-10.00) 10^3/uL RBC 3.15 L (4.50-6.00) 10^6/uL Hgb 9.1 L (13.0-17.0) g/dL Hct 27.7 L (40.0-52.0) % MCV 87.9 (82.0-92.0) fL MCH 28.9 (27.0-31.0) pg MCHC 32.9 (32.0-36.0) g/dL RDW 16.2 H (11.5-14.5) % Plt Count 273 (150-400) 10^3/uL MPV 8.2 (7.4-10.4) fL Immature Gran % (Auto) 1.1 (0.0-5.0) % Neut % (Auto) 86.1 H (50.0-70.0) % Lymph % (Auto) 3.9 L (20.0-40.0) % Gaston % (Auto) 8.1 H (2.0-8.0) % Eos % (Auto) 0.7 L (1.0-3.0) % Baso % (Auto) 0.1 (0.0-1.0) % Immature Gran # (Auto) 0.18 (0.00-0.50) 10^3/uL Neut # (Auto) 13.96 H (2.50-7.00) 10^3/uL Lymph # (Auto) 0.64 L (1.00-4.00) 10^3/uL Gaston # (Auto) 1.31 H (0.10-0.80) 10^3/uL Eos # (Auto) 0.12 (0.10-0.30) 10^3/uL Baso # (Auto) 0.02 (0.00-0.10) 10^3/uL Sodium 134 L (136-145) mmol/L Potassium 3.0 L (3.3-5.3) mmol/L Chloride 99 (98-115) mmol/L Carbon Dioxide 25.0 (21.0-32.0) mmol/L Anion Gap 13.0 (5-15) mmol/L BUN 15 (6-25) mg/dL Creatinine 1.05 (0.51-1.17) mg/dL Est Cr Clr Drug Dosing 72.57 mL/min Estimated GFR (MDRD) > 60 mL/min Glucose 121 H (75 - 99) mg/dL Calcium 8.5 L (8.7-10.3) mg/dL Ammonia < 10 L (11-32) umol/L Dann Results Last 24 Hours: Microbiology 09/14/18 08:40 Aerobic Blood Culture - Preliminary Blood - Venous - Lab Draw NO GROWTH AFTER 3 DAYS Anaerobic Blood Culture - Preliminary NO GROWTH AFTER 3 DAYS 09/14/18 08:00 Aerobic Blood Culture - Preliminary Blood - Venous NO GROWTH AFTER 3 DAYS Anaerobic Blood Culture - Preliminary NO GROWTH AFTER 3 DAYS Med Orders - Current: Current Medications Albuterol (Ventolin Hfa) 0 gm INH Q4H PRN PRN Reason: Shortness of Breath Albuterol/Ipratropium (Duoneb 3.0-0.5 Mg/3 Ml) 3 ml INH QIDRT [facility] Last Admin: 09/17/18 05:29 Dose: 3 ml Alprazolam (Xanax) 0.25 mg PO Q8H PRN PRN Reason: Anxiety Last Admin: 09/17/18 07:16 Dose: 0.25 mg Azithromycin (Zithromax) 500 mg PO DAILY [facility] Last Admin: 09/17/18 08:16 Dose: 500 mg Bisacodyl (Dulcolax) 5 mg PO BID [facility] Last Admin: 09/17/18 08:46 Dose: 5 mg Bisacodyl (Dulcolax) 5 - 10 mg PO DAILY [facility] Last Admin: 09/17/18 09:37 Dose: Not Given Bumetanide (Bumex) 1 mg PO DAILY [facility] Bupropion HCl (Wellbutrin Xl) 150 mg PO DAILY [facility] Last Admin: 09/17/18 08:16 Dose: 150 mg Ceftriaxone Sodium (Rocephin) 1 gm IVPUSH Q24H [facility] Last Admin: 09/17/18 08:46 Dose: 1 gm Cholecalciferol (Vitamin D3) 2,000 units PO DAILY@1800 [facility] Last Admin: 09/16/18 17:33 Dose: 2,000 units Diazepam (Valium) 2 mg IVPUSH ASDIRECTED PRN PRN Reason: Seizures Escitalopram Oxalate (Lexapro) 20 mg PO DAILY [facility] Last Admin: 09/17/18 08:18 Dose: 20 mg Fluticasone Propionate (Flonase) 0 gm NASBOTH BID [facility] Last Admin: 09/17/18 08:15 Dose: Not Given Fluticasone/Vilanterol (Breo Ellipta 200-25 Mcg Inhalation Kit) 0 each IH DAILY [facility] Last Admin: 09/17/18 09:50 Dose: 1 puff Furosemide (Lasix) 60 mg PO DAILY [facility] Potassium Chloride/Dextrose/Sod Cl (D5 1/2 Ns W/ 40 Meq/L Kcl) 1,000 mls @ 50 mls/hr IV ASDIRECTED [facility] Last Admin: 09/17/18 00:51 Dose: 50 mls/hr Metolazone (Zaroxolyn) 2.5 mg PO DAILY [facility] Modafinil (Provigil) 200 mg PO DAILY [facility] Morphine Sulfate (Ms Contin) 30 mg PO BID@0800,1800 [facility] Last Admin: 09/17/18 08:16 Dose: 30 mg Nicotine (Habitrol) 21 mg TRDERM DAILY [facility] Last Admin: 09/17/18 08:47 Dose: 21 mg Nicotine (Habitrol) 7 mg TRDERM 0900 [facility] Last Admin: 09/17/18 08:46 Dose: 7 mg Non-Formulary Medication (Ca/D3/Mag Ox/Zinc/Crane Rigger/Chuckie/Bor [[facility] Calcium 600-D3 Plus Tablet]) 1 tab PO BID [facility] Abiraterone Acetate (250mg - Ptom) 4 each PO DAILY [facility] Last Admin: 09/17/18 08:17 Dose: 4 each Morphine Sulfate Er (100mg - Ptom) 1 each PO BID@0800,1800 [facility] Last Admin: 09/14/18 20:31 Dose: Not Given Potassium Chloride (Klor-Con 10) 10 meq PO DAILY [facility] Last Admin: 09/16/18 08:27 Dose: 10 meq Potassium Chloride (Klor-Con M20) 20 meq PO DAILY@1800 [facility] Last Admin: 09/15/18 18:19 Dose: 20 meq Prednisone (Prednisone) 10 mg PO DAILY [facility] Last Admin: 09/17/18 08:15 Dose: 10 mg Ramelteon (Rozerem) 8 mg PO BEDTIME PRN PRN Reason: Insomnia Last Admin: 09/17/18 00:40 Dose: 8 mg Rivaroxaban (Xarelto) 20 mg PO DAILY@1800 [facility] Last Admin: 09/16/18 17:33 Dose: 20 mg Sodium Chloride (Saline Flush) 10 ml FLUSH Q8HR PRN PRN Reason: keep vein open Last Admin: 09/17/18 00:50 Dose: 10 ml Spironolactone (Aldactone) 25 mg PO DAILY [facility] Temazepam (Restoril) 7.5 mg PO BEDTIME [facility] Last Admin: 09/16/18 22:23 Dose: Not Given Discontinued Medications Albuterol/Ipratropium (Duoneb 3.0-0.5 Mg/3 Ml) 3 ml NEB Q4HRRT [facility] Last Admin: 09/15/18 21:42 Dose: Not Given Ceftriaxone Sodium (Rocephin) 1 gm IVPUSH ONETIME ONE Stop: 09/14/18 09:20 Last Admin: 09/14/18 09:30 Dose: 1 gm Sodium Chloride (Normal Saline) 1,000 mls @ 999 mls/hr IV .BOLUS ONE Stop: 09/14/18 10:19 Last Admin: 09/14/18 09:30 Dose: 999 mls/hr Potassium Chloride 20 meq/ (Premix) 100 mls @ 50 mls/hr IV ONETIME ONE Stop: 09/14/18 13:20 Last Admin: 09/14/18 12:48 Dose: 50 mls/hr Sodium Chloride (Sodium Chloride 0.45%) 1,000 mls @ 70 mls/hr IV ASDIRECTED [facility] Last Admin: 09/14/18 21:18 Dose: 70 mls/hr Piperacillin Sod/Tazobactam (Sod 4.5 gm/ Sodium Chloride) 100 mls @ 200 mls/hr IV Q6H [facility] Last Admin: 09/15/18 18:18 Dose: 200 mls/hr Potassium Chloride/Dextrose/Sod Cl (D5 1/2 Ns W/ 40 Meq/L Kcl) 1,000 mls @ 65 mls/hr IV ASDIRECTED [facility] Last Admin: 09/16/18 05:46 Dose: 65 mls/hr Piperacillin Sod/Tazobactam (Sod 4.5 gm/ Sodium Chloride) 100 mls @ 200 mls/hr IV Q6H [facility] Last Admin: 09/16/18 06:56 Dose: 200 mls/hr Morphine Sulfate (Ms Contin) 30 mg PO NOW STA Stop: 09/17/18 00:10 Last Admin: 09/17/18 00:40 Dose: 30 mg Potassium Bicarbonate (Klor-Con Ef) 25 meq PO DAILY [facility] Last Admin: 09/16/18 11:30 Dose: 25 meq Potassium Bicarbonate (Klor-Con Ef) 25 meq PO DAILY [facility] Potassium Bicarbonate (Klor-Con Ef) 25 meq PO ONETIME ONE Stop: 09/16/18 17:01 Last Admin: 09/16/18 17:37 Dose: 25 meq - Exam Quality Assessment: DVT Prophylaxis. No: Supplemental Oxygen General: Alert, Oriented, Mild Distress Neck: No JVD Lungs: Clear to Auscultation, Normal Respiratory Effort Cardiovascular: Regular Rate, Regular Rhythm GI/Abdominal Exam: Soft. No: Distended (Male) Exam: Deferred Back Exam: No: CVA Tenderness (L), CVA Tenderness (R) Peripheral Pulses: 2+: Radial (L), Radial (R) Skin: Warm, Dry, Intact Neurological: No New Focal Deficit Psy/Mental Status: Alert, Anxious (Slight anxiousness last night seems to be improved on rounds) - Problem List Review Problem List Initiated/Reviewed/Updated: Yes - My Orders Last 24 Hours: My Active Orders 09/16/18 09:26 Intake and Output [RC] 1400,2200,0600 09/16/18 10:45 Azithromycin [Zithromax] 500 mg PO DAILY 09/16/18 10:47 ALPRAZolam [Xanax] 0.25 mg PO Q8H PRN 09/16/18 10:52 Consult to Physical Therapy [PT Evaluation and Treatment] [CONS] Routine 09/16/18 11:00 D5 1/2 NS w/ 40 mEq/L KCl 1,000 ml IV ASDIRECTED 09/16/18 21:00 Temazepam [Restoril] 7.5 mg PO BEDTIME 09/17/18 00:07 Ramelteon [Rozerem] 8 mg PO BEDTIME PRN 09/17/18 08:54 Dietary Supplements [RC] ACBED - Plan Plan:: History of present illness Mr Chery is a 58-year-old gentleman admitted into inpatient status through the ED due to bilateral pneumonia. She was brought in via EMS due to altered mental status. Per patient's girlfriend, she states that over the past 2-3 days he has become gradually weaker, unable to ambulate, and has increasing confusion. 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 On arrival to the ED she was lethargic however somewhat responding stating he had no chest pain, nausea or headache. Per EMS, patient was found have mild hypoxia via transport, and O2 was administered via cannula. He does take morphine for pain. Patient was evaluated in the ED on 08/22/2018 and was subsequently transferred to [facility] where he was treated for sepsis due to pneumonia, (possible aspiration) C. difficile colitis with acute encephalopathy. Patient improved quickly with antibiotics and was at his baseline with mentation upon discharge. He did receive by mouth vancomycin for his C. difficile infection. Patient recently had MRI of his lumbar spine in which he became very lethargic thereafter after requiring sedation medication of benzodiazepine wiring assistance and sustained a fall. He states he gets quite "loopy" because he requires a higher dose to normal due to claustrophobic. Update this morning on rounds Family in room, patient much more alert, was notified last night at midnight regarding increase in agitation with increase in back pain, gave extra dose of MS Contin 30 mg 1 along with Rozerum, rostrum slightly withdrawn, minimal pain and back and abdomen, no longer appears sedated after being completely obtunded/ comatose on admission. Held all narcotics/sedatives on admission however yesterday started back on home MS Contin however only 25% which appears to be controlling his pain with good level of function. Although family desires increase in narcotics. Decrease appetite, meals do not appear up feeling to him liver no nausea or vomiting. Primary hospital problems Encephalopathy, 2/2 infection, medication drug overuse. Much improved Phencyclidine (PCP) exposure, expected metabolite in ~10% of patients on benzodiazepines metabolic alkalosis somewhat compensating, suspect renal etiology limiting adaptive distal HCO3 excretion Oversedation/200 on admission, patient education, slowly restart medications except much lower doses, much improved Pneumonia, questionable aspiration component 2/2 AMS/Phencyclidine (PCP) exposure, responding to treatment Acute kidney injury, post-obstructive and prerenal component since minimal intake and amount of home diuretics, resolved Dehydration, now euvolemic, restart ONE diuretic today Anemia, ACD Hypokalemia, k+ admin Hyponatremia, hypotonic, resolved Immunocompromised Host Recent C. difficile infection Hypoalbuminemia, pseudo- Tobacco dependency, nicotine replacement therapy Chronic Problems Prostate cancer with bone mets (spine) Hx of DVT on xarelto Anxiety and depression, good family support however increased family dynamics, consider limiting visitors to 2 at one time, encourage family to leave tonight overall plan --Continue inpatient stay, discharged tomorrow with home health --Replace potassium (will require 120-140meq today) --Resume spirallactone --Restart loop diuretic however initiate at low-dose--hold all other diuretics --cont azithromycin --Discontinue IV fluids --Continue with home medication of MS Contin however only ~50% of dose --Placed back on Restoril however only 7.5 mg daily at bedtime (ask RX if can break open and sprinkle 1/2 of granules to equal 7.5mg) --Low-dose Xanax PRN ONLY --Appealing meals, --labs in am --Staff to establish POA --Suggest providing monitored anesthesia care (MAC) for any future imaging due to oversedation/claustrophobia --Keep Social svs abreast of family dynamics --Long discussion with family this morning regarding oversedation, VT prophylaxis: Xarelto Code: made a DO NOT RESUSCICE Diet: regular, increase potassium foods, appealing meals
[2018-09-17] MEDS ORDERED: Sodium Chloride 0.9% 500 ML IV SCH (11:45)
[2018-09-17] MEDS: Spironolactone 25 MG Tab PO SCH (11:51)
[2018-09-17] MEDS ORDERED: diphenhydrAMINE 25 MG Cap PO PRN (14:53)
[2018-09-17] MEDS ORDERED: diphenhydrAMINE 25 MG Cap PO ONE (14:53)
[2018-09-17] MEDS: Calcium Citrate/Vitamin D3 315 MG-250 Unit Tab PO SCH ×3 (15:58→20:28)
[2018-09-17] MEDS ORDERED: Potassium Bicarbonate 25 MEQ Tab.EFF PO ONE (17:00)
[2018-09-17] MEDS: Morphine 15 MG Tab.ER PO SCH (17:26)
[2018-09-17] MEDS: Rivaroxaban 10 MG Tab PO SCH (17:27)
[2018-09-17] MEDS: Cholecalciferol (Vitamin D3) 25 MCG Tab PO SCH (17:27)
[2018-09-18] MEDS: ALPRAZolam 0.25 MG Tab PO PRN (04:18)
[2018-09-18] MEDS: Albuterol/Ipratropium 3.0-0.5 MG/3 ML Neb Soln INH SCH ×2 (05:28→11:55)
[2018-09-18 06:17] VITALS: BP 126/68
[2018-09-18] MEDS: Nicotine 21 MG/24 Hr Patch TRDERM SCH ×2 (08:04→09:59)
[2018-09-18 08:06] LABS: ANION GAP 15.5 mmol/L (5-15); CHLORIDE,CL 100 mmol/L (98-115); SODIUM,NA 136 mmol/L (136-145)
[2018-09-18] MEDS: Nicotine 7 MG/24 Hr Patch TRDERM SCH ×2 (08:08→10:00)
[2018-09-18] MEDS: Spironolactone 25 MG Tab PO SCH (08:09)
[2018-09-18] MEDS: predniSONE 10 MG Tab PO SCH (08:09)
[2018-09-18] MEDS: Escitalopram 10 MG Tab PO SCH (08:09)
[2018-09-18] MEDS: Bisacodyl 5 MG Tab PO SCH ×2 (08:09→08:18)
[2018-09-18] MEDS: Azithromycin 250 MG Tab PO SCH (08:09)
[2018-09-18] MEDS: buPROPion 150 MG Tab.ER PO SCH (08:09)
[2018-09-18] MEDS: cefTRIAXone 1 GM Vial IVPUSH SCH (08:10)
[2018-09-18] MEDS: Calcium Citrate/Vitamin D3 315 MG-250 Unit Tab PO SCH (08:10)
[2018-09-18] MEDS: Morphine 30 MG Tab.ER PO SCH (08:10)
[2018-09-18] MEDS: Morphine 15 MG Tab.ER PO SCH (08:10)
[2018-09-18] MEDS: Fluticasone Propionate Nasal Spray 16 GM Bottle NASBOTH SCH (08:17)
[2018-09-18] MEDS: ABIRATERONE ACETATE 250 MG PO SCH (08:19)
[2018-09-18] MEDS ORDERED: VILANTEROL IH SCH ×2 (09:00)
[2018-09-18] MEDS ORDERED: FLUTICASONE IH SCH ×2 (09:00)
[2018-09-18] MEDS ORDERED: Sodium Chloride 0.9% 20 ML SDV FLUSH ONE (09:30)
--- NOTE | 2018-09-18 11:18 | PCM.DCSUM1 ---
Discharge Summary - Hospital Course Diagnosis: Stroke: No - Discharge Data Discharge Date: 09/18/18 Discharge Disposition: Home, W Home Health Agency 06 Condition: Fair - Patient Summary/Data Consults: Consultations 09/16/18 10:52 Consult to Physical Therapy [PT Evaluation and Treatment] [CONS] Routine - Patient Instructions Diet: Usual Diet as Tolerated (potassium rich diet) Driving: Do Not Drive Showering/Bathing: May Shower Notify Provider of: Fever, Nausea and/or Vomiting - Discharge Plan *PRESCRIPTION DRUG MONITORING PROGRAM REVIEWED*: Yes (Reviewed PDMP through [facility] ) *COPY OF PRESCRIPTION DRUG MONITORING REPORT IN PATIENT [place]: No Prescriptions/Med Rec: Morphine Sulfate [Morphine Sulfate ER] 60 mg PO BID #60 tablet.er Potassium Chloride [Klor-Con M20] 40 meq PO BID #60 tab.er Home Medications: Home Meds Furosemide [Lasix] 60 mg PO DAILY 02/02/17 [History] Rivaroxaban [Xarelto] 20 mg PO DAILY@1800 02/02/17 [History] ALPRAZolam [Xanax] 0.25 mg PO Q8H PRN 10/09/17 [History] Albuterol [Ventolin HFA] 1 - 2 puff INH Q4H PRN 10/09/17 [History] Cholecalciferol (Vitamin D3) [Vitamin D3] 2,000 units PO DAILY@1800 10/09/17 [ History] Escitalopram [Lexapro] 20 mg PO DAILY 10/09/17 [History] Morphine Sulfate [Morphine Sulfate ER] 100 mg PO BID@0800,1800 10/09/17 [History ] buPROPion [buPROPion XL] 150 mg PO DAILY 10/09/17 [History] predniSONE [Prednisone] 10 mg PO DAILY 10/09/17 [History] Abiraterone Acetate 1,000 mg PO DAILY 09/14/18 [History] Albuterol/Ipratropium [DuoNeb 3.0-0.5 MG/3 ML] 1 inhalation INH QID 09/14/18 [ History] Bisacodyl [Dulcolax] 1 - 2 tab PO DAILY 09/14/18 [History] Bumetanide 1 mg PO DAILY 09/14/18 [History] Fluticasone Propionate [Flonase] 1 spray NASBOTH BID 09/14/18 [History] Fluticasone/Vilanterol [Breo Ellipta 200-25 MCG Inhalation Kit] 1 puff INH DAILY 09/14/18 [History] Temazepam [Restoril] 15 mg PO BEDTIME 09/14/18 [History] Gabapentin [Neurontin] 600 mg PO BID@0800,1800 #0 09/18/18 [Rx] Hydrocodone/Acetaminophen [Hydrocodon-Acetaminophn 10-325] 1 tab PO Q4H PRN # 180 09/18/18 [Rx] Morphine Sulfate [Morphine Sulfate ER] 60 mg PO BID #60 tablet.er 09/18/18 [Rx] Potassium Chloride [Klor-Con M20] 40 meq PO BID #60 tab.er 09/18/18 [Rx] Forms: ED Department Discharge Referrals: [facility] [Outside] Gregor Castelan, [employer] [Primary Care Provider] - - Discharge Summary/Plan Comment DC Time >30 min.: Yes Discharge Summary/Plan Comment: Final diagnosis Encephalopathy, 2/2 infection, medication drug overuse. Phencyclidine (PCP) exposure, expected metabolite in ~10% of patients on benzodiazepines metabolic alkalosis somewhat compensating, suspect renal etiology limiting adaptive distal HCO3 excretion Oversedation/200 on admission, patient education, slowly restart medications except much lower doses, much improved Pneumonia, questionable aspiration component 2/2 AMS/Phencyclidine (PCP) exposure, resolved Acute kidney injury, post-obstruc tive and prerenal component resolved Dehydration, now euvolemic, Anemia, ACD Hypokalemia, k+ admin Hyponatremia, hypotonic, resolved Immunocompromised Host Recent C. difficile infection Hypoalbuminemia, pseudo- Tobacco dependency, nicotine replacement therapy on hospital however does desire to continue smoking History 58-year-old gentleman admitted into inpatient status through the ED due to bilateral pneumonia. Hhe was brought in via EMS due to significant altered mental status. Per patient's girlfriend, she states that over the past 2-3 days prior to admission he has become gradually weaker, unable to ambulate, and has increasing confusion and did fall after becoming oversedated due to medication required for MRI due to his claustrophobia. 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 On arrival to the ED Mr Chery was streamline lethargic however somewhat responding stating he had no chest pain, nausea or headache. Per EMS, patient was found have mild hypoxia via transport, and O2 was administered via cannula. He does take morphine and hydrocodone for pain. Patient was evaluated in the ED on 08/22/2018 and was subsequently transferred to [facility] where he was treated for sepsis due to pneumonia, (possible aspiration) C. difficile colitis with acute encephalopathy. Patient improved quickly with antibiotics and was at his baseline with mentation upon discharge. He did receive by mouth vancomycin for his C. difficile infection. Patient recently had MRI of his lumbar spine in which he became very lethargic thereafter after requiring sedation medication of benzodiazepine requiring assistance and sustained a fall. Hospital course Patient was comatose upon my initial evaluation however did open eyes somewhat to a loud verbal command. I had stopped him from SEDATIVES including morphine, benzodiazepines, gabapentin along with diuretics due to FAUSTO within 24 hours he was alert and slowly became more oriented. He required aggressive hydration, El catheter was placed due to postobstructive and prerenal condition. Creatinine returned to normal over time. Started on antibiotics for his pneumonia. ABGs were obtained pH 7.48. He required aggressive potassium supplementation however it remained low. He had no vomiting or diarrhea. Culture showed no growth after 4 days, C. difficile toxin was negative. Urine drug screen demonstrated expected drugs however Phencyclidine (PCP) was in urine likely expected metabolite in ~10% of patients on benzodiazepines-- patient and family denies illicit drug use. Patient became more stabilized I slowly introduced MS Contin along with benzodiazepines however low dosages only. Family was given extensive medication regarding patient oversedation, likely 2/2 to heat dehydration and overdiuresis the lack of by mouth intake. Weight 24 hour robles although they continually stated he had pain when left alone patient rated his pain much lower than expected. He did not sleep well in the hospital once he became more oriented and awake. Medication changes/adjustments upon discharge Modafinil: Discontinued upon discharge MS contin: Reduced to 60 mg ER twice a day (was admitted with recently reduced to 100 BID) Hydrocodone: 10/325 reduced by 50% to 1 tab q4 (from 1-2 tabs Q4h) #180 given Gabapentin: reduced to 600 twice a day (from 900 BID) Klor Con 40 mg by mouth twice a day (increased 2/2 hypokalemia) Can continue temazepam, alprazolam Discharge This is a [id number] encounter for home health services to include PT/OT/ nursing care is develop an home therapy program and teach patient regarding his high risk medications of narcotic/benzodiazepine class sedatives medication as directed according to level of function not necessarily pain level. Patient came into the hospital completely comatose due to oversedation of medications exacerbated by overdiuresis and dehydration. Please assist patient with safety assessment and instruction in home to prevent falls. He will need assistance ambulation to help with the strength and endurance as he does have shortness of breath due to recent pneumonia. Considerations at follow-up --Careful medication review with ongoing PDMP review. Recommend low-dose and careful titration of pain meds/sedatives --Consider pain management contract --Consider the need for ongoing diuretics --BMP; adjust potassium --Recommend MAC for any future MRI scans versus increase in benzodiazepines --? repeat CXR - General Info Functional Status: Reports: Pain Controlled, Tolerating Diet, Ambulating - Review of Systems General: Reports: Weakness Pulmonary: Denies: Shortness of Breath, Cough Cardiovascular: Denies: Dyspnea on Exertion Gastrointestinal: Reports: Abdominal Pain Genitourinary: Reports: No Symptoms Musculoskeletal: Reports: Back Pain Skin: Reports: No Symptoms Neurological: Denies: Confusion Psychiatric: Reports: Mood Lability. Denies: Confusion - Patient Data Vitals - Most Recent: Last Vital Signs Temp 98.5 F 09/18/18 06:17 Pulse 80 09/18/18 09:00 Resp 20 09/18/18 06:17 BP 126/68 09/18/18 06:17 Pulse Ox 93 L 09/18/18 09:00 Weight - Most Recent: 231 lb I&O - Last 24 hours: Intake & Output 09/17/18 09/18/18 09/18/18 22:59 06:59 14:59 Intake Total 50 450 Balance 50 450 Lab Results - Last 24 hrs: Laboratory Results - last 24 hr 09/14/18 09/18/18 09/18/18 Range/Units 07:30 07:15 07:15 WBC 15.09 H (5.00-10.00) 10^3/uL RBC 3.04 L (4.50-6.00) 10^6/uL Hgb 8.9 L (13.0-17.0) g/dL Hct 26.8 L (40.0-52.0) % MCV 88.2 (82.0-92.0) fL MCH 29.3 (27.0-31.0) pg MCHC 33.2 (32.0-36.0) g/dL RDW 16.3 H (11.5-14.5) % Plt Count 293 (150-400) 10^3/uL MPV 8.5 (7.4-10.4) fL Immature Gran % (Auto) 1.3 (0.0-5.0) % Neut % (Auto) 86.0 H (50.0-70.0) % Lymph % (Auto) 4.8 L (20.0-40.0) % [place] % (Auto) 5.6 (2.0-8.0) % Eos % (Auto) 2.1 (1.0-3.0) % Baso % (Auto) 0.2 (0.0-1.0) % Immature Gran # (Auto) 0.19 (0.00-0.50) 10^3/uL Neut # (Auto) 12.99 H (2.50-7.00) 10^3/uL Lymph # (Auto) 0.73 L (1.00-4.00) 10^3/uL [place] # (Auto) 0.84 H (0.10-0.80) 10^3/uL Eos # (Auto) 0.31 H (0.10-0.30) 10^3/uL Baso # (Auto) 0.03 (0.00-0.10) 10^3/uL Sodium 136 (136-145) mmol/L Potassium 2.8 L (3.3-5.3) mmol/L Chloride 100 (98-115) mmol/L Carbon Dioxide 23.3 (21.0-32.0) mmol/L Anion Gap 15.5 H (5-15) mmol/L BUN 19 (6-25) mg/dL Creatinine 1.13 (0.51-1.17) mg/dL Est Cr Clr Drug Dosing 67.43 mL/min Estimated GFR (MDRD) > 60 mL/min Glucose 110 H (75 - 99) mg/dL Calcium 8.8 (8.7-10.3) mg/dL Total Bilirubin 0.5 (0.2-1.0) mg/dL AST 39 H (15-37) U/L ALT 35 (12-78) U/L Alkaline Phosphatase 188 H (46-116) IU/L Total Protein 6.8 (6.4-8.2) g/dL Albumin 1.86 L (3.00-4.80) g/dL Procalcitonin 7.42 H (<0.10) ng/mL MLILER Results - Last 24 hrs: Microbiology 09/14/18 08:40 Aerobic Blood Culture - Preliminary Blood - Venous - Lab Draw NO GROWTH AFTER 4 DAYS Anaerobic Blood Culture - Preliminary NO GROWTH AFTER 4 DAYS 09/14/18 08:00 Aerobic Blood Culture - Preliminary Blood - Venous NO GROWTH AFTER 4 DAYS Anaerobic Blood Culture - Preliminary NO GROWTH AFTER 4 DAYS Med Orders - Current: Current Medications Albuterol (Ventolin Hfa) 0 gm INH Q4H PRN PRN Reason: Shortness of Breath Albuterol/Ipratropium (Duoneb 3.0-0.5 Mg/3 Ml) 3 ml INH QIDRT [facility] Last Admin: 09/18/18 05:28 Dose: 3 ml Alprazolam (Xanax) 0.25 mg PO Q8H PRN PRN Reason: Anxiety Last Admin: 09/18/18 04:18 Dose: 0.25 mg Azithromycin (Zithromax) 500 mg PO DAILY [facility] Last Admin: 09/18/18 08:09 Dose: 500 mg Bisacodyl (Dulcolax) 5 mg PO BID [facility] Last Admin: 09/18/18 08:18 Dose: Not Given Bisacodyl (Dulcolax) 5 - 10 mg PO DAILY [facility] Last Admin: 09/18/18 08:09 Dose: 5 mg Bumetanide (Bumex) 1 mg PO DAILY [facility] Bupropion HCl (Wellbutrin Xl) 150 mg PO DAILY [facility] Last Admin: 09/18/18 08:09 Dose: 150 mg Calcium Citrate (Calcium Citrate + D) 1 tab PO BID [facility] Last Admin: 09/18/18 08:10 Dose: 1 tab Ceftriaxone Sodium (Rocephin) 1 gm IVPUSH Q24H [facility] Last Admin: 09/18/18 08:10 Dose: 1 gm Cholecalciferol (Vitamin D3) 2,000 units PO DAILY@1800 [facility] Last Admin: 09/17/18 17:27 Dose: 2,000 units Diazepam (Valium) 2 mg IVPUSH ASDIRECTED PRN PRN Reason: Seizures Diphenhydramine HCl (Benadryl) 50 mg PO BEDTIME PRN PRN Reason: Insomnia Last Admin: 09/18/18 02:38 Dose: 50 mg Escitalopram Oxalate (Lexapro) 20 mg PO DAILY [facility] Last Admin: 09/18/18 08:09 Dose: 20 mg Fluticasone Propionate (Flonase) 0 gm NASBOTH BID [facility] Last Admin: 09/18/18 08:17 Dose: Not Given Fluticasone/Vilanterol (Breo Ellipta 200-25 Mcg Inhalation Kit) 1 each IH DAILY [facility] Last Admin: 09/18/18 09:00 Dose: 1 inhalation Furosemide (Lasix) 60 mg PO DAILY [facility] Last Admin: 09/18/18 08:59 Dose: Not Given Sodium Chloride (Normal Saline) 500 mls @ 50 mls/hr IV ASDIRECTED [facility] Last Admin: 09/17/18 14:35 Dose: 50 mls/hr Modafinil (Provigil) 200 mg PO DAILY [facility] Last Admin: 09/18/18 09:00 Dose: Not Given Morphine Sulfate (Ms Contin) 30 mg PO BID@0800,1800 [facility] Last Admin: 09/18/18 08:10 Dose: 30 mg Morphine Sulfate (Ms Contin) 15 mg PO BID@0800,1800 [facility] Last Admin: 09/18/18 08:10 Dose: 15 mg Nicotine (Habitrol) 21 mg TRDERM DAILY [facility] Last Admin: 09/18/18 09:59 Dose: Not Given Nicotine (Habitrol) 7 mg TRDERM 0900 [facility] Last Admin: 09/18/18 10:00 Dose: Not Given Abiraterone Acetate (250mg - Ptom) 4 each PO DAILY [facility] Last Admin: 09/18/18 08:19 Dose: 4 each Morphine Sulfate Er (100mg - Ptom) 1 each PO BID@0800,1800 [facility] Last Admin: 09/14/18 20:31 Dose: Not Given Potassium Chloride (Klor-Con 10) 10 meq PO DAILY [facility] Last Admin: 09/16/18 08:27 Dose: 10 meq Potassium Chloride (Klor-Con M20) 20 meq PO DAILY@1800 [facility] Last Admin: 09/15/18 18:19 Dose: 20 meq Prednisone (Prednisone) 10 mg PO DAILY [facility] Last Admin: 09/18/18 08:09 Dose: 10 mg Ramelteon (Rozerem) 8 mg PO BEDTIME PRN PRN Reason: Insomnia Last Admin: 09/17/18 00:40 Dose: 8 mg Rivaroxaban (Xarelto) 20 mg PO DAILY@1800 [facility] Last Admin: 09/17/18 17:27 Dose: 20 mg Sodium Chloride (Saline Flush) 10 ml FLUSH Q8HR PRN PRN Reason: keep vein open Last Admin: 09/17/18 00:50 Dose: 10 ml Spironolactone (Aldactone) 25 mg PO DAILY [facility] Last Admin: 09/18/18 08:09 Dose: 25 mg Discontinued Medications Albuterol/Ipratropium (Duoneb 3.0-0.5 Mg/3 Ml) 3 ml NEB Q4HRRT [facility] Last Admin: 09/15/18 21:42 Dose: Not Given Ceftriaxone Sodium (Rocephin) 1 gm IVPUSH ONETIME ONE Stop: 09/14/18 09:20 Last Admin: 09/14/18 09:30 Dose: 1 gm Diphenhydramine HCl (Benadryl) 50 mg PO ONETIME ONE Stop: 09/17/18 14:54 Last Admin: 09/17/18 15:20 Dose: 50 mg Fluticasone/Vilanterol (Breo Ellipta 200-25 Mcg Inhalation Kit) 0 each IH DAILY [facility] Last Admin: 09/17/18 09:50 Dose: 1 puff Fluticasone/Vilanterol (Breo Ellipta 200-25 Mcg Inhalation Kit) 0 each IH DAILY [facility] Furosemide (Lasix) 20 mg PO ONETIME ONE Stop: 09/17/18 10:31 Last Admin: 09/17/18 11:51 Dose: 20 mg Heparin Sodium (Porcine) (Heparin Lock Flush 100 Units/Ml) 500 units FLUSH ONETIME ONE Stop: 09/18/18 09:31 Last Admin: 09/18/18 09:59 Dose: 500 units Sodium Chloride (Normal Saline) 1,000 mls @ 999 mls/hr IV .BOLUS ONE Stop: 09/14/18 10:19 Last Admin: 09/14/18 09:30 Dose: 999 mls/hr Potassium Chloride 20 meq/ (Premix) 100 mls @ 50 mls/hr IV ONETIME ONE Stop: 09/14/18 13:20 Last Admin: 09/14/18 12:48 Dose: 50 mls/hr Sodium Chloride (Sodium Chloride 0.45%) 1,000 mls @ 70 mls/hr IV ASDIRECTED [facility] Last Admin: 09/14/18 21:18 Dose: 70 mls/hr Piperacillin Sod/Tazobactam (Sod 4.5 gm/ Sodium Chloride) 100 mls @ 200 mls/hr IV Q6H [facility] Last Admin: 09/15/18 18:18 Dose: 200 mls/hr Potassium Chloride/Dextrose/Sod Cl (D5 1/2 Ns W/ 40 Meq/L Kcl) 1,000 mls @ 65 mls/hr IV ASDIRECTED [facility] Last Admin: 09/16/18 05:46 Dose: 65 mls/hr Piperacillin Sod/Tazobactam (Sod 4.5 gm/ Sodium Chloride) 100 mls @ 200 mls/hr IV Q6H [facility] Last Admin: 09/16/18 06:56 Dose: 200 mls/hr Potassium Chloride/Dextrose/Sod Cl (D5 1/2 Ns W/ 40 Meq/L Kcl) 1,000 mls @ 50 mls/hr IV ASDIRECTED [facility] Last Admin: 09/17/18 00:51 Dose: 50 mls/hr Potassium Chloride 20 meq/ (Premix) 100 mls @ 50 mls/hr IV ONETIME ONE Stop: 09/17/18 12:33 Last Admin: 09/17/18 12:18 Dose: 50 mls/hr Potassium Chloride 20 meq/ (Premix) 100 mls @ 50 mls/hr IV ONETIME ONE Stop: 09/17/18 15:59 Last Admin: 09/17/18 14:35 Dose: 50 mls/hr Morphine Sulfate (Ms Contin) 30 mg PO BID@0800,1800 [facility] Last Admin: 09/17/18 08:16 Dose: 30 mg Morphine Sulfate (Ms Contin) 30 mg PO NOW [facility] Stop: 09/17/18 00:10 Last Admin: 09/17/18 00:40 Dose: 30 mg Potassium Bicarbonate (Klor-Con Ef) 25 meq PO DAILY [facility] Last Admin: 09/16/18 11:30 Dose: 25 meq Potassium Bicarbonate (Klor-Con Ef) 25 meq PO DAILY [facility] Potassium Bicarbonate (Klor-Con Ef) 25 meq PO ONETIME ONE Stop: 09/16/18 17:01 Last Admin: 09/16/18 17:37 Dose: 25 meq Potassium Bicarbonate (Klor-Con Ef) 25 meq PO ONETIME ONE Stop: 09/17/18 17:01 Last Admin: 09/17/18 17:30 Dose: 25 meq Sodium Chloride (Normal Saline) 20 ml FLUSH ONETIME ONE Stop: 09/18/18 09:31 Last Admin: 09/18/18 09:58 Dose: 20 ml Temazepam (Restoril) 7.5 mg PO BEDTIME [facility] Last Admin: 09/16/18 22:23 Dose: Not Given - Exam Quality Assessment: Denies: Supplemental Oxygen General: Reports: Alert, Oriented, Cooperative, No Acute Distress Lungs: Reports: Clear to Auscultation Cardiovascular: Reports: Regular Rate, Regular Rhythm Extremities: No Pedal Edema Psy/Mental Status: Reports: Alert, Other (Fully alert and oriented). Denies: Anxious
== END 2018-09-18 11:22 | disposition home health service (06) | DRG 193 ==
LOC: KA.ED 07:19 → KA.MS 09:34
PROVIDERS: ADMIT Physician Assistant Surgical; ATTEND Nurse Practitioner Family
DX: J18.1 Lobar pneumonia, unspecified organism (principal); G92 Toxic encephalopathy; E87.3 Alkalosis; N17.9 Acute kidney failure, unspecified; E87.1 Hypo-osmolality and hyponatremia; H54.7 Unspecified visual loss; C79.51 Secondary malignant neoplasm of bone; Z66 Do not resuscitate; E86.0 Dehydration; D64.9 Anemia, unspecified; E87.6 Hypokalemia; Z86.718 Personal history of other venous thrombosis and embolism; F40.240 Claustrophobia; K21.9 Gastro-esophageal reflux disease without esophagitis; J44.9 Chronic obstructive pulmonary disease, unspecified; M19.90 Unspecified osteoarthritis, unspecified site; Z96.659 Presence of unspecified artificial knee joint; F17.210 Nicotine dependence, cigarettes, uncomplicated; F41.9 Anxiety disorder, unspecified; Z96.652 Presence of left artificial knee joint; F32.9 Major depressive disorder, single episode, unspecified; C61 Malignant neoplasm of prostate; Z79.01 Long term (current) use of anticoagulants; Z79.891 Long term (current) use of opiate analgesic; Z79.899 Other long term (current) drug therapy
CPT/HCPCS: 36415; 36600; 51702; 51798; 70450; 71045; 80048; 80053; 80305-QW; 82140; 82803; 83605; 83615; 83735; 83880; 84145; 84153; 84484; 85025; 85610; 85651; 85730; 87040; 87070; 87205; 87324; 93005; 94640; 96361; 96374; 97161-GP; 99284; 99285-25; A4217; A9270-GY; J0696; J1642; J2543; J3480; J7030; J7050; J7620-GY

== ENCOUNTER 2019-02-20 13:20 | Inpatient (IN) | payer MEDICARE, MEDICAID ==
[2019-02-20] MEDS ORDERED: Sodium Chloride 0.9% 1,500 ML IV SCH (13:45)
[2019-02-20] MEDS ORDERED: Ondansetron 4 MG/2 ML SDV IV ONE (14:00)
[2019-02-20 14:32] LABS: ANION GAP 18.3 mmol/L (5-15); CHLORIDE,CL 98 mmol/L (98-115); SODIUM,NA 137 mmol/L (136-145)
[2019-02-20] MEDS ORDERED: Albuterol 8 GM Inhaler INH PRN (15:19)
[2019-02-20] MEDS ORDERED: ALPRAZolam 0.25 MG Tab PO PRN (15:19)
[2019-02-20] MEDS ORDERED: Temazepam 15 MG Cap PO PRN (15:19)
[2019-02-20] MEDS ORDERED: Albuterol/Ipratropium 3.0-0.5 MG/3 ML Neb Soln NEB PRN (15:19)
[2019-02-20] MEDS ORDERED: guaiFENesin/Dextromethorphan 100-10 MG/5 ML Soln 5 ML Cup PO PRN (15:19)
[2019-02-20] MEDS ORDERED: Potassium Chloride 20 MEQ in Premix Bag 1 BAG IV ONE ×3 (15:27→22:00)
[2019-02-20] MEDS ORDERED: ABIRATERONE ACETATE 250 MG PO SCH (15:30)
[2019-02-20] MEDS: Acetaminophen/HYDROcodone 325-10 MG Tab PO PRN (15:55)
[2019-02-20] MEDS: buPROPion 150 MG Tab.ER PO SCH (16:48)
[2019-02-20] MEDS: predniSONE 10 MG Tab PO SCH (16:48)
[2019-02-20] MEDS: Escitalopram 10 MG Tab PO SCH (16:48)
[2019-02-20] MEDS ORDERED: Loperamide 2 MG Cap PO ONE (18:09)
[2019-02-20] MEDS ORDERED: Loperamide 2 MG Cap PO PRN (18:13)
[2019-02-20] MEDS: Gabapentin 300 MG Cap PO SCH (18:17)
[2019-02-20] MEDS: Rivaroxaban 10 MG Tab PO SCH (18:17)
[2019-02-20] MEDS ORDERED: Sodium Chloride 0.9% 20 ML SDV FLUSH PRN (18:28)
[2019-02-20] MEDS: Morphine 30 MG Tab.ER PO SCH (18:52)
[2019-02-20] MEDS: Amoxicillin/Clavulanate K 875-125 MG Tab PO SCH (20:37)
[2019-02-20] MEDS: Arformoterol 15 MCG/2 ML Neb Soln INH SCH (20:38)
[2019-02-20] MEDS: Budesonide 0.5 MG/2 ML Neb Susp INH SCH (21:08)
[2019-02-20] MEDS: Chlorhexidine Gluconate 0.12% Oral Rinse 473 ML Bottle PO SCH (21:19)
[2019-02-20] MEDS: Sodium Chloride 0.9% 1,000 ML IV SCH (21:25)
[2019-02-21] MEDS: Acetaminophen/HYDROcodone 325-10 MG Tab PO PRN ×2 (03:29→16:53)
[2019-02-21] MEDS: ABIRATERONE ACETATE 250 MG PO SCH (04:56)
[2019-02-21] MEDS: Sodium Chloride 0.9% 1,000 ML IV SCH ×3 (05:20→23:19)
[2019-02-21] MEDS: Morphine 30 MG Tab.ER PO SCH ×2 (06:26→18:16)
[2019-02-21 07:38] LABS: ANION GAP 13.9 mmol/L (5-15); CHLORIDE,CL 104 mmol/L (98-115); SODIUM,NA 138 mmol/L (136-145)
[2019-02-21] MEDS: Escitalopram 10 MG Tab PO SCH (08:15)
[2019-02-21] MEDS: buPROPion 150 MG Tab.ER PO SCH (08:15)
[2019-02-21] MEDS: Omeprazole 20 MG Cap.CR PO SCH (08:16)
[2019-02-21] MEDS: Gabapentin 300 MG Cap PO SCH ×2 (08:16→18:15)
[2019-02-21] MEDS: Amoxicillin/Clavulanate K 875-125 MG Tab PO SCH ×2 (08:16→20:02)
[2019-02-21] MEDS: predniSONE 10 MG Tab PO SCH (08:16)
[2019-02-21] MEDS: Chlorhexidine Gluconate 0.12% Oral Rinse 473 ML Bottle PO SCH ×2 (08:18→20:04)
[2019-02-21] MEDS: Arformoterol 15 MCG/2 ML Neb Soln INH SCH ×2 (08:27→20:01)
[2019-02-21] MEDS: Budesonide 0.5 MG/2 ML Neb Susp INH SCH ×2 (08:31→20:18)
--- NOTE | 2019-02-21 09:44 | PCM.PN ---
- General Info Date of Service: 02/21/19 Functional Status: Reports: Pain Controlled, Tolerating Diet, Urinating ( Starting to urinate however dark yellow highly concentrated urine). Denies: Ambulating - Review of Systems General: Reports: Weakness, Fatigue, Malaise, Appetite. Denies: Chills HEENT: Reports: No Symptoms Pulmonary: Reports: No Symptoms Cardiovascular: Reports: No Symptoms Gastrointestinal: Denies: Decreased Appetite, Diarrhea, Difficulty Swallowing, Nausea, Vomiting Genitourinary: Denies: Urgency Musculoskeletal: Reports: Other (Tingling in feet today) Neurological: Reports: Paresthesia, Tingling. Denies: Numbness Psychiatric: Denies: Agitation, Cravings - Patient Data Vitals - Most Recent: Last Vital Signs Temp 97.7 F 02/21/19 06:18 Pulse 76 02/21/19 06:18 Resp 18 02/21/19 06:18 BP 109/74 02/21/19 06:18 Pulse Ox 96 02/21/19 06:18 Weight - Most Recent: 212 lb 3 oz I&O - Last 24 Hours: Intake & Output 02/20/19 02/21/19 02/21/19 22:59 06:59 14:59 Intake Total 2521 1080 Balance 2521 1080 Lab Results Last 24 Hours: Laboratory Results - last 24 hr 02/20/19 02/20/19 02/21/19 Range/Units 14:04 14:04 07:10 WBC 11.36 H (5.00-10.00) 10^3/uL RBC 3.40 L (4.50-6.00) 10^6/uL Hgb 9.0 L (13.0-17.0) g/dL Hct 27.7 L (40.0-52.0) % MCV 81.5 L D (82.0-92.0) fL MCH 26.5 L (27.0-31.0) pg MCHC 32.5 (32.0-36.0) g/dL RDW 17.3 H (11.5-14.5) % Plt Count 356 (150-400) 10^3/uL MPV 8.3 (7.4-10.4) fL Immature Gran % (Auto) 0.3 (0.0-5.0) % Neut % (Auto) 79.8 H (50.0-70.0) % Lymph % (Auto) 9.5 L (20.0-40.0) % [place] % (Auto) 9.8 H (2.0-8.0) % Eos % (Auto) 0.4 L (1.0-3.0) % Baso % (Auto) 0.2 (0.0-1.0) % Immature Gran # (Auto) 0.03 (0.00-0.50) 10^3/uL Neut # (Auto) 9.07 H (2.50-7.00) 10^3/uL Lymph # (Auto) 1.08 (1.00-4.00) 10^3/uL [place] # (Auto) 1.11 H (0.10-0.80) 10^3/uL Eos # (Auto) 0.05 L (0.10-0.30) 10^3/uL Baso # (Auto) 0.02 (0.00-0.10) 10^3/uL Sodium 137 138 (136-145) mmol/L Potassium 2.8 L 3.9 (3.3-5.3) mmol/L Chloride 98 104 (98-115) mmol/L Carbon Dioxide 23.5 24.0 (21.0-32.0) mmol/L Anion Gap 18.3 H 13.9 (5-15) mmol/L BUN 20 13 (6-25) mg/dL Creatinine 1.18 H 1.06 (0.51-1.17) mg/dL Est Cr Clr Drug Dosing TNP 81.89 Estimated GFR (MDRD) > 60 > 60 mL/min Glucose 107 H 93 (75 - 99) mg/dL Calcium 8.8 8.8 (8.7-10.3) mg/dL Total Bilirubin 0.3 (0.2-1.0) mg/dL AST 384 H (15-37) U/L ALT 56 (12-78) U/L Alkaline Phosphatase 95 (46-116) IU/L Total Protein 7.4 (6.4-8.2) g/dL Albumin 2.44 L (3.00-4.80) g/dL Dann Results Last 24 Hours: Microbiology 02/20/19 15:30 Clostridioides difficile Antigen - Final Stool / Feces - Stool, Liquid NEGATIVE CDIFF AG REFERENCE RANGE: NEGATIVE Clostridioides difficile Toxin Assay - Final NEGATIVE CDIFF TOXIN REFERENCE RANGE: NEGATIVE Med Orders - Current: Current Medications Hydrocodone Bitart/Acetaminophen ([place] 325-10 Mg) 2 tab PO Q4H PRN PRN Reason: moderate pain Last Admin: 02/21/19 03:29 Dose: 2 tab Albuterol (Ventolin Hfa) 0 gm INH Q4H PRN PRN Reason: Shortness of Breath Albuterol/Ipratropium (Duoneb 3.0-0.5 Mg/3 Ml) 3 ml NEB QID PRN PRN Reason: Shortness of Breath Alprazolam (Xanax) 0.25 mg PO Q8H PRN PRN Reason: Anxiety Amoxicillin/Clavulanate Potassium (Augmentin 875 Mg/125 Mg) 1 tab PO Q12H [facility] Last Admin: 02/21/19 08:16 Dose: 1 tab Arformoterol Tartrate (Brovana) 15 mcg INH BID [facility] Last Admin: 02/21/19 08:27 Dose: Not Given Bisacodyl (Dulcolax) 5 mg PO DAILY [facility] Budesonide (Pulmicort) 0.5 mg INH BID [facility] Last Admin: 02/21/19 08:31 Dose: 0.5 mg Bupropion HCl (Wellbutrin Xl) 300 mg PO DAILY [facility] Last Admin: 02/21/19 08:15 Dose: 300 mg Chlorhexidine Gluconate (Peridex 0.12% Rinse) 15 ml PO BID [facility] Last Admin: 02/21/19 08:18 Dose: Not Given Escitalopram Oxalate (Lexapro) 20 mg PO DAILY [facility] Last Admin: 02/21/19 08:15 Dose: 20 mg Gabapentin (Neurontin) 600 mg PO BID@0800,1800 [facility] Last Admin: 02/21/19 08:16 Dose: 600 mg Guaifenesin/Phenylephrine HCl (Robitussin Dm) 10 ml PO Q4H PRN PRN Reason: Cough Sodium Chloride (Normal Saline) 1,500 mls @ 999 mls/hr IV .BOLUS [facility] Last Admin: 02/20/19 14:00 Dose: 999 mls/hr Sodium Chloride (Normal Saline) 1,000 mls @ 125 mls/hr IV ASDIRECTED [facility] Last Admin: 02/21/19 05:20 Dose: 125 mls/hr Loperamide HCl (Imodium) 2 mg PO ASDIRECTED PRN PRN Reason: Diarrhea Morphine Sulfate (Ms Contin) 60 mg PO BID@0700,1900 [facility] Last Admin: 02/21/19 06:26 Dose: 60 mg Omeprazole (Omeprazole) 20 mg PO DAILY [facility] Last Admin: 02/21/19 08:16 Dose: 20 mg Ptom- Abiraterone (Acetate 250mg Tablet) 4 each PO DAILY@0500 [facility] Last Admin: 02/21/19 04:56 Dose: 4 each Potassium Bicarbonate (Klor-Con Ef) 25 meq PO DAILY [facility] Prednisone (Prednisone) 10 mg PO DAILY [facility] Last Admin: 02/21/19 08:16 Dose: 10 mg Rivaroxaban (Xarelto) 20 mg PO DAILY@1800 [facility] Last Admin: 02/20/19 18:17 Dose: 20 mg Sodium Chloride (Normal Saline) 20 ml FLUSH ASDIRECTED PRN PRN Reason: Other Temazepam (Restoril) 15 mg PO BEDTIME PRN PRN Reason: Insomnia Discontinued Medications Potassium Chloride 20 meq/ (Premix) 100 mls @ 50 mls/hr IV ONETIME ONE Stop: 02/20/19 17:26 Last Admin: 02/20/19 16:40 Dose: 50 mls/hr Potassium Chloride 20 meq/ (Premix) 100 mls @ 50 mls/hr IV ONETIME ONE Stop: 02/20/19 19:59 Last Admin: 02/20/19 19:20 Dose: 50 mls/hr Potassium Chloride 20 meq/ (Premix) 100 mls @ 50 mls/hr IV ONETIME ONE Stop: 02/20/19 23:59 Last Admin: 02/20/19 22:00 Dose: 50 mls/hr Loperamide HCl (Imodium) 4 mg PO ONETIME ONE Stop: 02/20/19 18:10 Last Admin: 02/20/19 18:15 Dose: 4 mg Ondansetron HCl (Zofran) 4 mg IV ONETIME ONE Stop: 02/20/19 14:01 Last Admin: 02/20/19 14:05 Dose: 4 mg Ptom- Abiraterone (Acetate 250mg Tablet) 4 each PO DAILY [facility] Last Admin: 02/20/19 16:48 Dose: Not Given - Exam Quality Assessment: DVT Prophylaxis (Cross covered factor Xa inhibitor). No: Supplemental Oxygen General: Alert, Oriented, Cooperative, No Acute Distress Neck: Supple Lungs: Clear to Auscultation, Normal Respiratory Effort Cardiovascular: Regular Rate, Regular Rhythm GI/Abdominal Exam: Soft, Non-Tender. No: Distended (Male) Exam: Deferred Extremities: No Pedal Edema Peripheral Pulses: 1+: Radial (R) Skin: Dry, Intact Psy/Mental Status: Alert, Normal Affect, Normal Mood. No: Agitated - Problem List Review Problem List Initiated/Reviewed/Updated: Yes - My Orders Last 24 Hours: My Active Orders 02/20/19 13:39 Patient Status [ADT] Routine Oxygen Therapy [RC] PRN Vital Signs [RC] 0700,1500,2300 Resuscitation Status Routine 02/20/19 13:45 Sodium Chloride 0.9% [Normal Saline] 1,500 ml IV .BOLUS 02/20/19 13:47 Ear Irrigation [RC] 1000 02/20/19 13:53 Isolation [COMM] Stat 02/20/19 14:00 Sodium Chloride 0.9% [Normal Saline] 1,000 ml IV ASDIRECTED 02/20/19 15:19 ALPRAZolam [Xanax] 0.25 mg PO Q8H PRN Acetaminophen/HYDROcodone [[place] 325-10 MG] 2 tab PO Q4H PRN Albuterol [Ventolin HFA] 0 gm INH Q4H PRN Albuterol/Ipratropium [DuoNeb 3.0-0.5 MG/3 ML] 3 ml NEB QID PRN Dextromethorphan/guaiFENesin [Robitussin DM] 10 ml PO Q4H PRN Temazepam [Restoril] 15 mg PO BEDTIME PRN 02/20/19 15:25 Activity as Tolerated [RC] .Routine 02/20/19 15:30 Bisacodyl [Dulcolax] 5 mg PO DAILY Escitalopram [Lexapro] 20 mg PO DAILY Potassium Bicarbonate [Klor-Con EF] 25 meq PO DAILY buPROPion [Wellbutrin XL] 300 mg PO DAILY predniSONE 10 mg PO DAILY 02/20/19 18:00 Gabapentin [Neurontin] 600 mg PO BID@0800,1800 Rivaroxaban [Xarelto] 20 mg PO DAILY@1800 02/20/19 18:13 Loperamide [Imodium] 2 mg PO ASDIRECTED PRN 02/20/19 18:28 Sodium Chloride 0.9% [Normal Saline] 20 ml FLUSH ASDIRECTED PRN 02/20/19 19:00 Morphine [MS Contin] 60 mg PO BID@0700,1900 02/20/19 21:00 Amoxicillin/Clavulanate K [Augmentin 875 MG/125 MG] 1 tab PO Q12H Arformoterol [Brovana] 15 mcg INH BID Budesonide [Pulmicort] 0.5 mg INH BID Chlorhexidine Gluconate 0.12% [Peridex 0.12% Rinse] 15 ml PO BID 02/20/19 Dinner Regular Diet [DIET] 02/21/19 05:00 Patient's Own Medication [Ptom] 4 each PO DAILY@0500 02/21/19 09:00 Omeprazole 20 mg PO DAILY - Plan Plan:: History summary 58-year-old gentleman was routinely seen in the [place] clinic by his oncologist on Monday and was noted to be quite weak having diarrhea quite fatigued signs and symptoms of significant dehydration. He was admitted more for symptom management IV fluids and the need for electrolyte correction. 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 Due to his metastasis of his cancer he has chronic pain and is on narcotics. There was concern of recurrence of C. difficile infection as the patient was recently given one time dose of ceftriaxone and placed on oral clindamycin for acute on chronic tooth abscess. Although he has chronic baseline loose stools diarrhea had been slightly worse over the past few days. Hospital course On admission it was noted for local hypokalemia which was corrected with accommodation of IV and by mouth potassium. He was given aggressive fluid resuscitation on admission and he started to void earlier on this morning however dark urine concentration. Skin remains dry mucous membranes remain dry. No fever throughout the night. 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
[2019-02-21] MEDS ORDERED: Sodium Chloride 0.9% 1,000 ML IV ONE (09:52)
[2019-02-21] MEDS: Bisacodyl 5 MG Tab PO SCH (09:55)
[2019-02-21] MEDS: Potassium Bicarbonate 25 MEQ Tab.EFF PO SCH ×2 (09:57→09:58)
[2019-02-21] MEDS: B.Bifidum/B.Longum/L.Acidophilus/L.Rhamnosus (Probiotic) Cap PO SCH (10:05)
[2019-02-21] MEDS: Potassium Chloride 20 MEQ Tab.ER PO SCH ×2 (10:05→20:02)
[2019-02-21] MEDS: Rivaroxaban 10 MG Tab PO SCH (18:17)
[2019-02-22] MEDS: ABIRATERONE ACETATE 250 MG PO SCH (04:55)
[2019-02-22] MEDS: Acetaminophen/HYDROcodone 325-10 MG Tab PO PRN (05:02)
[2019-02-22] MEDS: Morphine 30 MG Tab.ER PO SCH (06:40)
[2019-02-22 06:45] VITALS: BP 102/67; PULSE 84
[2019-02-22] MEDS: B.Bifidum/B.Longum/L.Acidophilus/L.Rhamnosus (Probiotic) Cap PO SCH (08:25)
[2019-02-22] MEDS: predniSONE 10 MG Tab PO SCH (08:25)
[2019-02-22] MEDS: buPROPion 150 MG Tab.ER PO SCH (08:25)
[2019-02-22] MEDS: Escitalopram 10 MG Tab PO SCH (08:25)
[2019-02-22] MEDS: Omeprazole 20 MG Cap.CR PO SCH (08:25)
[2019-02-22] MEDS: Budesonide 0.5 MG/2 ML Neb Susp INH SCH (08:25)
[2019-02-22] MEDS: Arformoterol 15 MCG/2 ML Neb Soln INH SCH (08:26)
[2019-02-22] MEDS: Amoxicillin/Clavulanate K 875-125 MG Tab PO SCH (08:26)
[2019-02-22] MEDS: Gabapentin 300 MG Cap PO SCH (08:26)
[2019-02-22] MEDS: Potassium Chloride 20 MEQ Tab.ER PO SCH (08:26)
[2019-02-22] MEDS: Chlorhexidine Gluconate 0.12% Oral Rinse 473 ML Bottle PO SCH (08:29)
--- NOTE | 2019-02-22 09:19 | PCM.DCSUM1 ---
Discharge Summary - Hospital Course Diagnosis: Stroke: No - Discharge Data Discharge Date: 02/22/19 Discharge Disposition: Home, Self-Care 01 Condition: Good - Referral to Home Health Primary Care Physician: Israel Shankar PA-C - Patient Instructions Diet: Drink 8-10+ Glasses/Day Activity: As Tolerated Showering/Bathing: May Shower Notify Provider of: Fever, Nausea and/or Vomiting Other/Special Instructions: --Stay well hydrated. --Do not take Bumetanide or Lasix or Potassium until I see you Monday - Discharge Plan *PRESCRIPTION DRUG MONITORING PROGRAM REVIEWED*: Yes (verified through [employer]) *COPY OF PRESCRIPTION DRUG MONITORING REPORT IN PATIENT [place]: Yes (IN epic) Prescriptions/Med Rec: Loperamide HCl [Imodium A-D] 2 mg PO ASDIRECTED PRN #30 capsule PRN Reason: Diarrhea Home Medications: Home Meds Furosemide [Lasix] 60 mg PO DAILY 02/02/17 [History] ALPRAZolam [Xanax] 0.25 mg PO Q8H PRN 10/09/17 [History] Albuterol [Ventolin HFA] 1 - 2 puff INH Q4H PRN 10/09/17 [History] Cholecalciferol (Vitamin D3) [Vitamin D3] 2,000 units PO DAILY@1800 10/09/17 [ History] Escitalopram [Lexapro] 20 mg PO DAILY 10/09/17 [History] buPROPion [buPROPion XL] 300 mg PO DAILY 10/09/17 [History] predniSONE [Prednisone] 10 mg PO DAILY 10/09/17 [History] Abiraterone Acetate 1,000 mg PO DAILY 09/14/18 [History] Albuterol/Ipratropium [DuoNeb 3.0-0.5 MG/3 ML] 1 inh NEB QID PRN 09/14/18 [ History] Bisacodyl [Dulcolax] 5 mg PO DAILY 09/14/18 [History] Bumetanide 1 mg PO DAILY 09/14/18 [History] Temazepam [Restoril] 15 mg PO BEDTIME PRN 09/14/18 [History] Gabapentin [Neurontin] 600 mg PO BID@0800,1800 #0 09/18/18 [Rx] Morphine Sulfate [Morphine Sulfate ER] 60 mg PO BID #60 tablet.er 09/18/18 [Rx] Potassium Chloride [Klor-Con M20] 40 meq PO BID 09/26/18 [History] Hydrocodone/Acetaminophen [Hydrocodon-Acetaminophn 10-325] 2 tab PO Q4H PRN [History] Rivaroxaban [Xarelto] 20 mg PO DAILY@1800 12/07/18 [History] Arformoterol [Brovana] 15 mcg IH BID 02/20/19 [History] Budesonide [Pulmicort] 0.5 mg IH BID 02/20/19 [History] Chlorhexidine Gluconate [Peridex 0.12% Rinse] 15 ml MM BID 02/20/19 [History] Clindamycin HCl 300 mg PO TID 02/20/19 [History] Dextromethorphan/guaiFENesin [Robitussin DM] 10 ml PO Q4H PRN 02/20/19 [History] Omeprazole 20 mg PO DAILY 02/20/19 [History] Amoxicillin/Clavulanate K [Augmentin 875-125 MG] 1 tab PO BID #16 tablet [Rx] Loperamide HCl [Imodium A-D] 2 mg PO ASDIRECTED PRN #30 capsule 02/22/19 [Rx] Referrals: Gregor Castelan, [employer] [Nurse Practitioner] - - Discharge Summary/Plan Comment DC Time >30 min.: Yes Discharge Summary/Plan Comment: Final Dx. --Dehydration, profound on admission, improving --Weakness, improving --Diarrhea, iimproving --Hypokalemia, resolved --Single tooth abscess, acute on chronic, --Immunocompromised host, History summary 58-year-old gentleman was routinely seen in the [facility] by his oncologist on Monday and was noted to be quite weak having diarrhea quite fatigued signs and symptoms of significant dehydration. He was admitted more for symptom management IV fluids and the need for electrolyte correction. 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 Due to his metastasis of his cancer he has chronic pain and is on narcotics. There was concern of recurrence of C. difficile infection as the patient was recently given one time dose of ceftriaxone and placed on oral clindamycin for acute on chronic tooth abscess. Although he has chronic baseline loose stools diarrhea had been slightly worse over the past few days. Hospital course Went well, he had no side effects to any tx or medications. Quite dehydrated on admission was given IV fluids, boluses. His output did not improve. He was significantly hypokalemia 2.1 on admission however this was normalized with a combination of IV, oral potassium and holding diuretic therapy. Have negative C. difficile, his diarrhea was improving with the use of Imodium. Clindamycin was discontinued on admission due to a tooth abscess, started amoxicillin he was never hemodynamically compromised. No fever. Eyes stable. Lungs were clear. I held all his diuretics upon admission due to profound dehydration. He will start these back up only after follow-up. He had no fluid overload in his lower extremities, no cough clear lungs. Did not desire nicotine replacement therapy, no agitation. Smoking cessation counseling was provided. Probiotic event due to high risk of C. difficile infection. His intake and output was monitored. Medication changes/adjustments upon discharge --Augmentin 875 mg p.o. twice daily x8 more days --Immodium AD 2 capsules after each bowel movement up to 4 capsules/day --Hold potassium and ALL diuretics until follow-up --Continue all other home medications Disposition --Patient will be discharged from the hospital, he came in due to dehydration, diarrhea and weakness all improved and all much more stable --Follow-up with me in the clinic clinic next week - General Info Functional Status: Reports: Pain Controlled, Tolerating Diet, Ambulating, Urinating. Denies: New Symptoms - Review of Systems General: Denies: Fever, Weakness, Fatigue, Malaise, Chills Pulmonary: Reports: No Symptoms Cardiovascular: Denies: Palpitations, Dyspnea on Exertion, Orthopnea, PND, Edema , Lightheadedness Gastrointestinal: Reports: Diarrhea (improving) Genitourinary: Reports: No Symptoms Skin: Reports: Dryness (improving ) Psychiatric: Reports: No Symptoms - Patient Data Vitals - Most Recent: Last Vital Signs Temp 98.9 F 02/22/19 06:45 Pulse 84 02/22/19 06:45 Resp 20 02/22/19 06:45 BP 102/67 02/22/19 06:45 Pulse Ox 96 02/22/19 06:45 Weight - Most Recent: 233 lb 1 oz I&O - Last 24 hours: Intake & Output 02/21/19 02/22/19 02/22/19 22:59 06:59 14:59 Intake Total 1598 1188 Output Total 175 550 Balance 1423 638 Med Orders - Current: Current Medications Hydrocodone Bitart/Acetaminophen ([place] 325-10 Mg) 2 tab PO Q4H PRN PRN Reason: moderate pain Last Admin: 02/22/19 05:02 Dose: 2 tab Albuterol (Ventolin Hfa) 0 gm INH Q4H PRN PRN Reason: Shortness of Breath Albuterol/Ipratropium (Duoneb 3.0-0.5 Mg/3 Ml) 3 ml NEB QID PRN PRN Reason: Shortness of Breath Alprazolam (Xanax) 0.25 mg PO Q8H PRN PRN Reason: Anxiety Amoxicillin/Clavulanate Potassium (Augmentin 875 Mg/125 Mg) 1 tab PO Q12H [facility] Last Admin: 02/22/19 08:26 Dose: 1 tab Arformoterol Tartrate (Brovana) 15 mcg INH BID [facility] Last Admin: 02/22/19 08:26 Dose: 15 mcg Bisacodyl (Dulcolax) 5 mg PO DAILY [facility] Last Admin: 02/21/19 09:55 Dose: Not Given Budesonide (Pulmicort) 0.5 mg INH BID [facility] Last Admin: 02/22/19 08:25 Dose: 0.5 mg Bupropion HCl (Wellbutrin Xl) 300 mg PO DAILY [facility] Last Admin: 02/22/19 08:25 Dose: 300 mg Chlorhexidine Gluconate (Peridex 0.12% Rinse) 15 ml PO BID [facility] Last Admin: 02/22/19 08:29 Dose: Not Given Escitalopram Oxalate (Lexapro) 20 mg PO DAILY [facility] Last Admin: 02/22/19 08:25 Dose: 20 mg Gabapentin (Neurontin) 600 mg PO BID@0800,1800 [facility] Last Admin: 02/22/19 08:26 Dose: 600 mg Guaifenesin/Phenylephrine HCl (Robitussin Dm) 10 ml PO Q4H PRN PRN Reason: Cough Sodium Chloride (Normal Saline) 1,500 mls @ 999 mls/hr IV .BOLUS [facility] Last Admin: 02/20/19 14:00 Dose: 999 mls/hr Sodium Chloride (Normal Saline) 1,000 mls @ 125 mls/hr IV ASDIRECTED [facility] Last Admin: 02/21/19 23:19 Dose: 125 mls/hr Lactobacillus Acidophilus/Rhamnosus (Multi-Aylin Plus) 1 cap PO DAILY [facility] Last Admin: 02/22/19 08:25 Dose: 1 cap Loperamide HCl (Imodium) 2 mg PO ASDIRECTED PRN PRN Reason: Diarrhea Last Admin: 02/22/19 05:03 Dose: 2 mg Morphine Sulfate (Ms Contin) 60 mg PO BID@0700,1900 [facility] Last Admin: 02/22/19 06:40 Dose: 60 mg Omeprazole (Omeprazole) 20 mg PO DAILY [facility] Last Admin: 02/22/19 08:25 Dose: 20 mg Ptom- Abiraterone (Acetate 250mg Tablet) 4 each PO DAILY@0500 [facility] Last Admin: 02/22/19 04:55 Dose: 4 each Potassium Chloride (Klor-Con M20) 40 meq PO BID [facility] Last Admin: 02/22/19 08:26 Dose: 40 meq Prednisone (Prednisone) 10 mg PO DAILY [facility] Last Admin: 02/22/19 08:25 Dose: 10 mg Rivaroxaban (Xarelto) 20 mg PO DAILY@1800 [facility] Last Admin: 02/21/19 18:17 Dose: 20 mg Sodium Chloride (Normal Saline) 20 ml FLUSH ASDIRECTED PRN PRN Reason: Other Temazepam (Restoril) 15 mg PO BEDTIME PRN PRN Reason: Insomnia Discontinued Medications Potassium Chloride 20 meq/ (Premix) 100 mls @ 50 mls/hr IV ONETIME ONE Stop: 02/20/19 17:26 Last Admin: 02/20/19 16:40 Dose: 50 mls/hr Potassium Chloride 20 meq/ (Premix) 100 mls @ 50 mls/hr IV ONETIME ONE Stop: 02/20/19 19:59 Last Admin: 02/20/19 19:20 Dose: 50 mls/hr Potassium Chloride 20 meq/ (Premix) 100 mls @ 50 mls/hr IV ONETIME ONE Stop: 02/20/19 23:59 Last Admin: 02/20/19 22:00 Dose: 50 mls/hr Sodium Chloride (Normal Saline) 1,000 mls @ 500 mls/hr IV .BOLUS ONE Stop: 02/21/19 11:51 Last Admin: 02/21/19 10:52 Dose: 500 mls/hr Loperamide HCl (Imodium) 4 mg PO ONETIME ONE Stop: 02/20/19 18:10 Last Admin: 02/20/19 18:15 Dose: 4 mg Ondansetron HCl (Zofran) 4 mg IV ONETIME ONE Stop: 02/20/19 14:01 Last Admin: 02/20/19 14:05 Dose: 4 mg Ptom- Abiraterone (Acetate 250mg Tablet) 4 each PO DAILY [facility] Last Admin: 02/20/19 16:48 Dose: Not Given Potassium Bicarbonate (Klor-Con Ef) 25 meq PO DAILY [facility] Last Admin: 02/21/19 09:58 Dose: Not Given - Exam Quality Assessment: Reports: DVT Prophylaxis General: Reports: Alert, Oriented Neck: Reports: Supple Lungs: Reports: Clear to Auscultation, Normal Respiratory Effort Cardiovascular: Reports: Regular Rate, Regular Rhythm GI/Abdominal Exam: Soft, Non-Tender, No Distention Rectal (Males) Exam: Deferred Back Exam: Denies: CVA Tenderness (R) Extremities: Normal Inspection. No: Pedal Edema, Increased Warmth, Redness Skin: Reports: Dry Neurological: Reports: No New Focal Deficit Psy/Mental Status: Reports: Alert, Normal Affect, Normal Mood. Denies: Agitated
== END 2019-02-22 10:00 | disposition home or self-care (01) | DRG 641 ==
LOC: KA.MS 13:20
PROVIDERS: ADMIT Nurse Practitioner Family; ATTEND Family Medicine
DX: E86.0 Dehydration (principal); C79.52 Secondary malignant neoplasm of bone marrow; C79.51 Secondary malignant neoplasm of bone; E87.6 Hypokalemia; K04.7 Periapical abscess without sinus; G89.3 Neoplasm related pain (acute) (chronic); R19.7 Diarrhea, unspecified; C61 Malignant neoplasm of prostate; D64.9 Anemia, unspecified; M19.90 Unspecified osteoarthritis, unspecified site; D69.6 Thrombocytopenia, unspecified; R53.1 Weakness; Z96.652 Presence of left artificial knee joint; F17.210 Nicotine dependence, cigarettes, uncomplicated; M17.0 Bilateral primary osteoarthritis of knee; G89.29 Other chronic pain; F41.9 Anxiety disorder, unspecified; F32.9 Major depressive disorder, single episode, unspecified; Z79.899 Other long term (current) drug therapy; Z79.52 Long term (current) use of systemic steroids; Z79.1 Long term (current) use of non-steroidal anti-inflammatories (NSAID); Z71.6 Tobacco abuse counseling; Z86.718 Personal history of other venous thrombosis and embolism; Z79.01 Long term (current) use of anticoagulants; Z86.19 Personal history of other infectious and parasitic diseases
CPT/HCPCS: 36415; 80048; 80053; 85025; 87324; 87449; 94640; A9270-GY; J1642; J2405; J3480; J7030; J7040